=== PATIENT | female | born 1945 | race Caucasian/White ===

== ENCOUNTER 2022-12-05 04:36 | Outpatient (RCR) | payer MEDICARE, SELFPAY | END 2023-01-03 23:59 | disposition home or self-care (01) | LOC: MM 04:36 | PROVIDERS: PCP Family Medicine; Visit Provider Internal Medicine | DX: Z51.81 Encounter for therapeutic drug level monitoring (principal); Z79.01 Long term (current) use of anticoagulants; I48.91 Unspecified atrial fibrillation | CPT/HCPCS: 85610; G0463 ==

== ENCOUNTER 2023-01-09 08:58 | Outpatient (RCR) | payer MEDICARE, SELFPAY | END 2023-02-03 16:58 | disposition home or self-care (01) | LOC: MM 08:58 | PROVIDERS: PCP Internal Medicine; Visit Provider Internal Medicine | DX: Z51.81 Encounter for therapeutic drug level monitoring (principal); Z79.01 Long term (current) use of anticoagulants; I48.91 Unspecified atrial fibrillation | CPT/HCPCS: 85610; G0463 ==

== ENCOUNTER 2023-02-04 09:19 | Outpatient (RCR) | payer MEDICARE, SELFPAY | END 2023-03-06 17:33 | disposition home or self-care (01) | LOC: MM 09:19 | PROVIDERS: Visit Provider Internal Medicine | DX: Z51.81 Encounter for therapeutic drug level monitoring (principal); Z79.01 Long term (current) use of anticoagulants; I48.91 Unspecified atrial fibrillation ==

== ENCOUNTER 2023-03-07 08:56 | Outpatient (RCR) | payer MEDICARE, SELFPAY | END 2023-04-04 16:51 | disposition home or self-care (01) | LOC: MM 08:56 | PROVIDERS: Visit Provider Internal Medicine | DX: Z51.81 Encounter for therapeutic drug level monitoring (principal); Z79.01 Long term (current) use of anticoagulants; I48.91 Unspecified atrial fibrillation | CPT/HCPCS: 85610; G0463 ==

== ENCOUNTER 2023-04-07 02:44 | Outpatient (RCR) | payer MEDICARE, SELFPAY | END 2023-05-06 17:41 | disposition home or self-care (01) | LOC: MM 02:44 | PROVIDERS: Visit Provider Internal Medicine | DX: Z51.81 Encounter for therapeutic drug level monitoring (principal); Z79.01 Long term (current) use of anticoagulants; I48.91 Unspecified atrial fibrillation | CPT/HCPCS: 85610; G0463 ==

== ENCOUNTER 2023-05-07 00:31 | Outpatient (RCR) | payer MEDICARE, SELFPAY | END 2023-06-05 16:27 | disposition home or self-care (01) | LOC: MM 00:31 | PROVIDERS: Visit Provider Internal Medicine | DX: Z51.81 Encounter for therapeutic drug level monitoring (principal); Z79.01 Long term (current) use of anticoagulants; I48.91 Unspecified atrial fibrillation | CPT/HCPCS: 85610; G0463 ==

== ENCOUNTER 2023-06-06 09:46 | Outpatient (RCR) | payer MEDICARE, SELFPAY | END 2023-07-04 15:30 | disposition home or self-care (01) | LOC: MM 09:46 | PROVIDERS: Visit Provider Internal Medicine | DX: Z51.81 Encounter for therapeutic drug level monitoring (principal); Z79.01 Long term (current) use of anticoagulants; I48.91 Unspecified atrial fibrillation ==

== ENCOUNTER 2023-06-27 08:52 | Outpatient (OUT) | payer MEDICARE, SELFPAY ==
--- NOTE | 2023-06-27 | RT_ITS ---
The [facility] Test Date: 2023-06-27 Pat Name: ELIZABETH ABBASI Department: Room: - Gender: Female Tankroom Tender: Tere Reyes RRT : 1945 Requested By: CLAIRE MARIN M.D. Order Number: [id number] Reading MD: Chema Pendleton Interpretive Statements Pulmonary function testing was completed according to ATS criteria. Findings were considered accurate and reproducible. No bronchodilator was administered due to normal spirometric values. Spirometry: -FEV1/FVC: Normal @ 86% -FEV1: Normal @ 118% -FVC: Normal @ 101% Lung volumes by plethysmography: -RV: Reduced @ 43% -TLC: Mildly reduced @ 77% Diffusion capacity: -DLCO: Low normal @ 81% when corrected for Hb 11.5g/dL Flow-volume loop: -Normal shape Comparison from 03/24/2020: -Spirometry essentially unchanged with exception of FVC which was 105%. TLC was 86%. DLCO was 82%. Impressions: -Normal spirometry with mildly decreased TLC and normal diffusion impairment. There is a mild decrease in FVC and TLC when compared to prior testing. Clinical correlation required. Electronically Signed On 07-08-2023 14:05:37 EST by Chema Pendleton
[2023-06-27 09:11] LABS: Hemoglobin 11.5 g/dL (12.0-16.0)
[2023-06-27 09:42] LABS: Alanine Aminotransferase 17 U/L (14-59); Albumin Globulin Ratio 0.9; Albumin Level 3.6 g/dL (3.4-5.0); Alkaline Phosphatase 62 U/L (46-116); Aspartate Amino Transferase 16 U/L (15-37); Bilirubin Direct 0.1 mg/dL (0.0-0.2); Bilirubin Total 0.4 mg/dL (0.2-1.0); Thyroid Stimulating Hormone 4.317 uIU/mL (0.358-3.740); Total Protein 7.6 g/dL (6.4-8.2)
--- NOTE | 2023-06-27 09:54 | XR_ITS ---
The [address] [address] Patient Name: ELIZABETH ABBASI MRN: [id number] date: 1945 Sex: F Assigned Patient Location: CARD Current Patient Location: CARD Accession/Order Number: [id number] Exam Date: 06/27/2023 10:20 Report Date: 06/27/2023 10:38 At the request of: CLAIRE MARIN Procedure: XR chest 2V EXAM: XR chest 2V HISTORY: status post device closure of ASD Z87.74 COMPARISON: None. TECHNIQUE: PA and lateral views of the chest. FINDINGS: The cardiomediastinal silhouette is enlarged. No focal consolidation is identified. There is no pneumothorax. No pleural effusion is noted. The osseous structures are intact. XR/XR chest 2V IMPRESSION: Cardiomegaly. Electronically authenticated by: TAVARES SEAY Date: 06/27/2023 10:38
[2023-06-27 10:00] LABS: Free T4 1.33 ng/dL (0.76-1.46)
== END 2023-06-27 08:53 | disposition home or self-care (01) ==
LOC: CARD 08:52
PROVIDERS: Visit Provider Internal Medicine Interventional Cardiology
DX: I48.0 Paroxysmal atrial fibrillation (principal); Z87.74 Personal history of (corrected) congenital malformations of heart and circulatory system
CPT/HCPCS: 36415; 71046; 80076; 84439; 84443; 85018; 94010; 94726; 94729

== ENCOUNTER 2023-07-07 01:31 | Outpatient (RCR) | payer MEDICARE, SELFPAY | END 2023-08-06 17:08 | disposition home or self-care (01) | LOC: MM 01:31 | PROVIDERS: Visit Provider Internal Medicine | DX: Z51.81 Encounter for therapeutic drug level monitoring (principal); Z79.01 Long term (current) use of anticoagulants; I48.91 Unspecified atrial fibrillation | CPT/HCPCS: 85610; G0463 ==

== ENCOUNTER 2023-07-30 07:58 | Outpatient (OUT) | payer MEDICARE, SELFPAY ==
--- OUTSIDE RECORDS SUMMARY | 2023-07-30 08:02 | XMS_ITS | CCD ---
Author Name Unknown Address [address] [facility] [address] [place] [address] Organization [facility] Care Team Providers Care Quality Control Coordinator Name Role Phone GEOVANNA, DR CHRISTIAN Hawley Primary Care Unavailable FAWWAD, KELLER H Attending Unavailable FAWWAD, KELLER H Admitting Unavailable FAWWAD, KELLER H Attending Unavailable FAWWAD, KELLER H Admitting Unavailable AUSTIN, DR CHRISTIAN Hawley Primary Care Unavailable FAWWAD, KELLER H Attending Unavailable AUSTIN, DR CHRISTIAN Hawley Primary Care Unavailable FAWWAD, KELLER H Admitting Unavailable FAWWAD, KELLER H Attending Unavailable AUSTIN, DR CHRISTIAN Hawley Primary Care Unavailable FAWWAD, KELLER H Admitting Unavailable FAWWAD, KELLER H Attending Unavailable AUSTIN, DR CHRISTIAN Hawley Primary Care Unavailable FAWWAD, KELLER H Admitting Unavailable FAWWAD, KELLER H Attending Unavailable FAWWAD, KELLER H Admitting Unavailable AUSTIN, DR CHRISTIAN Hawley Primary Care Unavailable AUSTIN, DR CHRISTIAN Hawley Admitting Unavailable AUSTIN, DR CHRISTIAN Hawley Primary Care Unavailable AUSTIN, DR CHRISTIAN Hawley Consulting Unavailable AUSTIN, DR CHRISTIAN Hawley Attending Unavailable AUSTIN, DR CHRISTIAN Hawley Primary Care Unavailable AUSTIN, DR CHRISTIAN Hawley Attending Unavailable AUSTIN, DR CHRISTIAN Hawley Admitting Unavailable WEST, DR JANET Temple Consulting Unavailable AUSTIN, DR CHRISTIAN Hawley Consulting Unavailable AUSTIN, DR CHRISTIAN Hawley Primary Care Unavailable WEST, DR JANET Temple Consulting Unavailable AUSTIN, DR CHRISTIAN Hawley Attending Unavailable AUSTIN, DR CHRISTIAN Hawley Admitting Unavailable AUSTIN, DR CHRISTIAN Hawley Consulting Unavailable ASHLIE, ROSA MARIA Attending Unavailable AUSTIN, DR CHRISTIAN Hawley Primary Care Unavailable ASHLIE, ROSA MARIA Admitting Unavailable ASHLIE, ROSA MARIA Consulting Unavailable GEOVANNA, DR CHRISTIAN Hawley Primary Care Unavailable CLAIRE MARIN Attending Unavailable NANI, DR JEFF Patel Consulting Unavailable CLAIRE MARIN Admitting Unavailable CLAIRE MARIN Consulting Unavailable DR CHRISTIAN AUSTIN Primary Care Unavailable FAWWAD, KELLER H Attending Unavailable FAWRORY, KELLER H Admitting Unavailable DR CHRISTIAN AUSTIN Primary Care Unavailable FAWWAD, KELLER H Attending Unavailable FAWWAD, KELLER H Admitting Unavailable DR CHRISTIAN AUSTIN Primary Care Unavailable FAWWAD, KELLER H Attending Unavailable FAWWAEnoc, KELLER H Admitting Unavailable DR CHRISTIAN AUSTIN Primary Care Unavailable FAWWAD, KELLER H Attending Unavailable FAWWAD, KELLER H Admitting Unavailable DR CHRISTIAN AUSTIN Primary Care Unavailable FAWWAD, KELLER H Attending Unavailable FAWWAD, KELLER H Admitting Unavailable Nay Akers Unavailable CLAIRE MARIN Attending Unavailable ROSA MARIA DAILEY Attending Unavailable Allergies Allergy Classification Reported Allergen(s) Allergy Type Date of Onset Reaction(s) Facility (1 source) patient allergy list reviewed by nurse or physicia Propensity to adverse reactions Comment:Done [employer] Other (1 source) Allergies Reconciled Propensity to adverse reactions Unknown [employer] Other Medications Current Medications Medication Drug Class(es) Dates Sig (Normalized) Sig (Original) alendronic acid 70 mg oral tablet (1 source) Bisphosphonate Start: 03-06-2022 take 1 tablet by mouth every week Fosamax 70MG Fosamax 70MG, 1 (one) Tablet weekly # 12, 03/06/2022, Ref. x3. Active Oral weekly for 90 *Pick strength-form from [employer] for eRX* Feb, Active amiodarone hydrochloride 100 mg oral tablet (1 source) Antiarrhythmic Start: 03-01-2022 take 100 mg by mouth once daily Amiodarone HCl 100MG Amiodarone HCl( 100MG Oral daily ) Active -Hx Entry Oral daily for 0 *Pick strength-form from [employer] for eRX* Feb, Active aspirin 81 mg delayed release oral tablet (1 source) Platelet Aggregation Inhibitor, Nonsteroidal Anti-inflammatory Drug Start: 03-01-2022 Aspirin Adult Low Dose 81 MG Aspirin( 81MG Oral ) Active -Hx Entry Oral for 0 Feb, Active ciprofloxacin 3 mg/ml ophthalmic solution (1 source) Quinolone Antimicrobial Start: 07-10-2023 take 1-2 drop(s) into the eye(s) every four hours Ciprofloxacin HCl 0.3 % 1-2 drops Ophthalmic every 4 hours for 7 Jul, Active metoprolol tartrate 100 mg oral tablet (1 source) beta-Adrenergic Meng Start: 08-21-2021 take 1 tablet by mouth once daily Metoprolol Succinate ER 100MG Metoprolol Succinate ER 100MG, 1 (one) Tablet Tablet daily # 90, 08/21/2021, Ref. x1. Active Oral daily for 0 *Pick strength-form from [employer] for eRX* Aug, Active simvastatin 40 mg oral tablet (1 source) HMG-CoA Reductase Inhibitor Start: 03-01-2022 Simvastatin 40MG Simvastatin( 40MG Oral ) Active -Hx Entry Oral for 0 *Pick strength-form from [employer] for eRX* Feb, Active warfarin sodium 5 mg oral tablet (1 source) Vitamin K Antagonist Start: 03-01-2022 Warfarin Sodium 5MG Warfarin Sodium( 5MG Oral ) Active -Hx Entry Oral for 0 *Pick strength-form from [employer] for eRX* Feb, Active Problems Active Problems Problem Classification Problem Date Documented Date Episodic/Chronic Cardiac and circulatory congenital anomalies (1 source) Atrial septal defect; Translations: [Atrial septal defect] Onset: 04-17-2018 Chronic Cardiac dysrhythmias (8 sources) Paroxysmal atrial fibrillation; Translations: [Paroxysmal atrial fibrillation] Onset: 04-17-2018 Chronic Cardiac dysrhythmias (3 sources) Bradycardia, unspecified; Translations: [Bradycardia] Onset: 04-26-2014 Episodic Coronary atherosclerosis and other heart disease (2 sources) Atherosclerotic heart disease of [place] coronary artery without angina pectoris; Translations: [Atherosclerotic heart disease of [place] coronary artery without angina pectoris] Onset: 03-14-2022 Chronic Disorders of lipid metabolism (2 sources) Hyperlipidemia, unspecified; Translations: [Hyperlipidemia, unspecified] Onset: 07-23-2023 Chronic Essential hypertension (4 sources) Essential (primary) hypertension; Translations: [Essential hypertension] Onset: 04-26-2014 Chronic Heart valve disorders (2 sources) Nonrheumatic mitral (valve) insufficiency; Translations: [Mitral valve disorder] Onset: 04-17-2018 Chronic Inflammation; infection of eye (except that caused by tuberculosis or sexually transmitteddisease) (1 source) Unspecified acute conjunctivitis, bilateral Episodic Occlusion or stenosis of precerebral arteries (4 sources) Carotid artery occlusion without infarction; Translations: [Occlusion and stenosis of carotid artery without mention of cerebral infarction] Onset: 05-19-2014 Chronic Osteoporosis (5 sources) Age-related osteoporosis without current pathological fracture; Translations: [Primary osteoporosis] Onset: 05-24-2022 Chronic Other aftercare (5 sources) Encounter for therapeutic drug level monitoring; Translations: [ENC THERAPEUTC DRUG LEVL MONITORING] Onset: 11-02-2022 Episodic Other aftercare (1 source) long term care administrator (current) use of anticoagulants; Translations: [ENVIRONMENTAL PROJECT MANAGER CURRNT USE ANTICOAGULANTS] Onset: 12-04-2022 Episodic Other connective tissue disease (1 source) Pain in left foot; Translations: [Pain in left foot] Episodic Other injuries and conditions due to external causes (1 source) History of fall; Translations: [History of falling] Episodic Residual codes; unclassified (1 source) Immunization refused ; Translations: [Immunization not carried out because of patient refusal] Episodic Residual codes; unclassified (1 source) Procedure not done; Translations: [Procedure and treatment not carried out because of patient's decision for unspecified reasons] Episodic Residual codes; unclassified (1 source) Postmenopausal state; Translations: [Asymptomatic menopausal state] Episodic Sprains and strains (1 source) Sprain of ankle; Translations: [Sprain of unspecified ligament of left ankle, initial encounter] Episodic Unclassified (1 source) Atrial septal defect, unspecified; Translations: [Atrial septal defect, unspecified] Onset: 03-14-2022 Viral infection (1 source) Disease caused by 2019-nCoV; Translations: [COVID-19] Past or Other Problems Problem Classification Problem Date Documented Da te Episodic/Chronic Acute bronchitis (1 source) Acute bronchitis; Translations: [Acute bronchitis, unspecified] Onset: 07-30-2017 Episodic Cardiac and circulatory congenital anomalies (2 sources) Personal history of (corrected) congenital malformations of heart and circulatory system; Translations: [Personal history of (corrected) congenital malformations of heart and circulatory system] Onset: 01-21-2023 Episodic Heart valve disorders (1 source) O/E - cardiac murmur; Translations: [Cardiac murmur, unspecified] Onset: 03-03-2017 Episodic Malaise and fatigue (1 source) Fatigue; Translations: [Other fatigue] Onset: 04-03-2018 Episodic Other aftercare (4 sources) Other group home (current) drug therapy; Translations: [OT ENVIRONMENTAL PROJECT MANAGER CURRENT DRUG THERAPY] Onset: 07-29-2022 Episodic Other bone disease and musculoskeletal deformities (1 source) Other specified disorders of bone density and structure, left thigh; Translations: [OT D/O BONE DEN STRUCT LT THIGH] Onset: 05-27-2022 Episodic Other lower respiratory disease (1 source) Dyspnea; Translations: [Other forms of dyspnea] Onset: 04-03-2018 Episodic Other screening for suspected conditions (not mental disorders or infectious disease) (5 sources) Encounter for screening mammogram for malignant neoplasm of breast; Translations: [Electrocardiogram abnormal] Onset: 04-26-2014 Episodic Other upper respiratory infections (1 source) Acute sinusitis; Translations: [Acute sinusitis, unspecified] Onset: 11-22-2014 Episodic Residual codes; unclassified (1 source) Edema; Translations: [Edema] Onset: 04-03-2018 Episodic Residual codes; unclassified (1 source) Family history of diabetes mellitus; Translations: [Family history of diabetes mellitus] Onset: 04-26-2014 Episodic Residual codes; unclassified (1 source) Family history of stroke; Translations: [Family history of stroke] Onset: 04-26-2014 Episodic Unclassified (1 source) Atrial septal defect, unspecified; Translations: [Atrial septal defect, unspecified] Onset: 07-23-2023 Results Test Name Value Interpretation Reference Range Facility Office Visiton 07-23-2023 Follow-up visit [id number] Estephanie Eugene ra 1945 F Date Provider Department Center 07/23/2023 Meredith-ROSA MARIA DAILEY Family History Problem Relation Age of Onset Hypertension Mother Stroke Mother Atrial fibrillation Sister Lung cancer Brother Family Status - Relation Status Age at Mother Sister Brother Level of Service:62697 NE OFFICE/OUTPATIENT ESTABLISHED MOD MDM 30 MIN Reason for Visit and Comments: Follow-up [478350] [facility] Office Visiton 01-21-2023 Follow-up visit [id number] Estephanie Eugene ra 1945 F Date Provider Department Center 01/21/2023 CLAIRE JC GOSIA Gwendolyn Monae Family History Problem Relation Age of Onset Hypertension Mother Stroke Mother Atrial fibrillation Sister Lung cancer Brother Family Status - Relation Status Age at Mother Sister Brother Level of Service:08747 NE OFFICE/OUTPATIENT ESTABLISHED MOD MDM 30-39 MIN Reason for Visit and Comments: Follow-up [640022] - 6 month w echo Normal [facility] ECHOCARDIO M/2D COMPLETEon 0 08-14-2022 ECHOCARDIO M/2D COMPLETE Patient: ELIZABETH EUGENE Exam Date: 08/14/2022 : 1945 Gender:F Ordering : ROSA MARIA DAILEY Admission #: [id number] Family : DR CHRISTIAN AUSTIN M.D. Order #: [id number] CLICK HERE TO VIEW EXAM ECHOCARDIOGRAM REPORT PROCEDURE: CARDIO PULMONARY ECHOCARDIO M/2D COMP INDICATIONS: H/O ASD Closure COMPARISON: None. DESCRIPTION: COMPLETE ECHOCARDIOGRAM Real-time transthoracic echocardiography with 2D, M-mode, spectral and color flow Doppler performed. QUALITY: Technical quality was adequate. 60 141# 128/60 HR 52 LEFT VENTRICLE: Normal chamber size. Proximal septal hypertrophy (sigmoid septum). Global left ventricular systolic function is normal. No regional wall motion abnormalities. LV EF: Visual estimation of left ventricular ejection fraction is 60%. DIASTOLIC: Grade II diastolic dysfunction. ATRIAL SEPTUM: Interatrial closure device is seen with small residual left to right shunting. LEFT ATRIUM: Severe dilatation. RIGHT ATRIUM: Normal chamber size. RIGHT VENTRICLE: Normal chamber size. Normal right ventricular systolic function. TRICUSPID VALVE: Normal mobility and thickness. No stenosis with mild regurgitation. No evidence of pulmonary hypertension. RVSP 31 mmHg MITRAL VALVE: Mildly thickened with normal mobility. No evidence of mitral valve stenosis. Mild mitral regurgitation. AORTIC VALVE: Normal trileaflet appearance. No evidence of aortic valve stenosis. Trivial aortic regurgitation. AORTIC ROOT: Normal diameter and appearance. PULMONIC VALVE: Normal thickness and mobility. No stenosis. Trivial regurgitation. PERICARDIUM: Trivial posterior pericardial effusion. IVC: Collapses with inspirations. IVC is normal in size. PLEURA: CONCLUSION: 1. Normal left ventricular systolic function. LVEF is 60%. 2. Normal right ventricular size and systolic function. 3. Severe left atrial dilatation. 4. Normal right atrial size. 5. Interatrial septal closure device is seen well-seated across the septum with a small residual [id number] shunt by color Doppler. 6. Mild mitral regurgitation. 7. Normal right-sided pressures. 8. Trivial posterior pericardial effusion. Adult Echocardiography Procedure Report Left Ventricle LVEDD (3.7 - 5.6 cm): 5.02 cm LVESD (2.2 - 4.0 cm): 2.85 cm LVPW thickness (0.5 - 1.0 cm): 0.86 cm LVOT Max Gradient: 3.84 mm[Hg] Peak Velocity (LVOT): 0.98 m/s LVOT Diameter 1.68 cm Left Ventricular Ejection Fraction: 60 % Left Atrium LA Volume Index (2D A2C): 97.65 ml, 92.56 ml, 102.86 ml Left Atrium Systolic Dimension: 5.27 cm Mitral Valve MV E to A Ratio: 1.28 Mitral Valve A-Wave Peak Velocity: 0.84 m/s Mitral Valve E-Wave Peak Velocity: 1.07 m/s Right Ventricle RV Internal Diastolic Dimension: 3.40 cm Aorta AO Root Diam: 2.90 cm Ascending Ao Diam: 2.82 cm Aortic Valve AoV Area (Peak Antwan): 1.48 cm2, 1.48 cm2 Peak Velocity(Antegrade Flow): 1.47 m/s Peak Gradient(Antegrade Flow): 8.69 mm[Hg] Tricuspid Valve Peak Velocity (Regurgitant Flow): 2.34 m/s, 2.41 m/s, 2.59 m/s Peak Velocity: 0.46 m/s Pulmonic Valve Peak Velocity: 0.72 m/s Peak Gradient: 2.10 mm[Hg] Right Atrium Dictated by: Claire Marin M.D. on 08/15/2022 at 18:10 Approved by: Claire Marin M.D. on 08/15/2022 at 18:36 Normal [facility] FREE T4on 07-29-2022 Free T4 [Mass/Vol] 1.43 ng/dL Normal 0.76-1.46 [facility] Comment on above: Performed By: #### F T4 #### [facility] [address] [address] [address] Adrian Becker LIVER PROFILEon 07-29-2022 Albumin [Mass/Vol] 3.8 g/dL Normal 3.4-5.0 [facility] Comment on above: Performed By: #### T SH, LIVER #### [facility] [address] [place] [address] Dr. Adrian Becker Albumin/Globulin [Mass ratio] 1.0 {ratio} Normal [facility] Comment on above: Performed By: #### T SH, LIVER #### [facility] [address] [place] [address] Dr. Adrian Becker ALP [Catalytic activity/Vol] 66 U/L Normal 46-116 [facility] Comment on above: Performed By: #### T SH, LIVER #### [facility] [address] [place] [address] Dr. Adrian Becker ALT [Catalytic activity/Vol] 20 U/L Normal 14-59 [facility] Comment on above: Performed By: #### T SH, LIVER #### [facility] [address] [place] [address] Dr. Adrian Becker AST [Catalytic activity/Vol] 25 U/L Normal 15-37 [facility] Comment on above: Performed By: #### T SH, LIVER #### [facility] [address] [place] [address] Dr. Adrian Becker BILI, CONJUGATED 0.1 mg/dL Normal 0.0-0.2 [facility] Comment on above: Performed By: #### T SH, LIVER #### [facility] [address] [place] [address] Dr. Adrian Becker Bilirubin [Mass/Vol] 0.3 mg/dL Normal 0.2-1.0 [facility] Comment on above: Performed By: #### T SH, LIVER #### [facility] [address] [place] [address] Dr. Adrian Becker Globulin (S) [Mass/Vol] 3.9 g/dL Normal [facility] Comment on above: Performed By: #### T SH, LIVER #### [facility] [address] [place], [place] [address] Dr. Adrian Becker Protein [Mass/Vol] 7.7 g/dL Normal 6.4-8.2 [facility] Comment on above: Performed By: #### T SH, LIVER #### [facility] [address] [place], [place] [address] Dr. Adrian Becker TSHon 07-29-2022 TSH 2.876 uIU/mL Normal 0.358-3.740 [facility] Comment on above: Performed By: #### T SH, LIVER #### [facility] [address] [place], [place] [address] Dr. Adrian Becker XR CHEST 2 Von 07-29-2022 XR CHEST 2 V EXAMINATION: XR CHES T 2 V HISTORY: Long-term current use of drug therapy COMPARISON: XR chest 01/05/2021 FINDINGS: LUNGS: No significant pulmonary parenchymal abnormalities. Stable calcified granuloma within left midlung. VASCULATURE: No increased pulmonary vasculature. PLEURA: No pneumothorax, effusion, or pleural thickening. CARDIAC: No cardiomegaly or cardiac silhouette abnormality. MEDIASTINUM: No visible mass or adenopathy. BONES: No fracture or visible bone lesion. OTHER: Negative. IMPRESSION: 1. No acute cardiopulmonary process. 2. No significant chronic interstitial changes/fibrosis. Electronically authenticated by: JEFF CARDOZA Date: 2022-07-29 13:46 Normal [facility] XR DEXA BONE DENSITYon 05-24 XR DEXA BONE DENSITY EXAMINATION: XR DEXA BONE DENSITY, 05/24/2022 8:22 AM EST HISTORY: Senile osteoporosis COMPARISON: 2005 TECHNIQUE: Dual-energy X-ray absorptiometry (DEXA) bone density study performed for the axial skeleton. FINDINGS: Bone mineral density AP spine L1-L4 measures 1.260 g/sq cm. T score 0.7. WHO classification: Normal. Lowest bone mineral density left femoral trochanter measures 0.581 g/sq cm. T score -2.3. WHO classification: Osteopenia IMPRESSION: Osteopenia. Moderate fracture risk Electronically authenticated by: JANET BORDEN Date: 2022-05-24 15:40 Normal [facility] MG MAMM SCREEN 3D ENRRIQUE CADon 05-21-2022 MG MAMM SCREEN 3D ENRRIQUE CAD Patient: ELIZABETH EUGENE Exam Date: 05/21/2022 : 1945 Gender:F Ordering : DR CHRISTIAN AUSTIN M.D. Admission #: [id number] Family : Order #: [id number] CLICK HERE TO VIEW EXAM RADIOLOGY REPORT PROCEDURE: MAMMOGRAM SCREENING 3D BILATERAL CAD COMPARISON: MG MAMM SCREEN ENRRIQUE W CAD, 05/11/2020. INDICATIONS: Screening mammography Calculator Name NCI Breast Cancer Risk Assessment Tool 5 Year Breast Cancer Risk 1.50% Lifetime Breast Cancer Risk 3.30% Personal Breast Cancer No Personal Ovarian Cancer No Treatments None Family Cancers None LOCATION: [facility] BREAST COMPOSITION: Heterogeneously dense,which may obscure small masses. FINDINGS: DIAGNOSTIC CATEGORY 2--BENIGN FINDING. NO CHANGE FROM COMPARISON. Scattered benign-appearing nodules are present. Scattered benign-appearing calcifications are present. Scattered benign-appearing lymph nodes are present. RIGHT BREAST: No significant suspicious finding. LEFT BREAST: No significant suspicious finding. RECOMMENDATIONS: ROUTINE MAMMOGRAM AND CLINICAL EVALUATION IN 12 MONTHS. PLEASE NOTE: A NORMAL MAMMOGRAM DOES NOT EXCLUDE THE POSSIBILITY OF BREAST CANCER. A CLINICALLY SUSPICIOUS PALPABLE LUMP SHOULD BE BIOPSIED. Dictated by: Janet Borden MD on 05/21/2022 at 13:46 Approved by: Janet Borden MD on 05/21/2022 at 13:[address] [facility] CBC AUTO DIFFon 03-12-2022 BASO # 0.1 103/ul Normal 0.0-0.1 [facility] Comment on above: Performed By: #### C BC #### [facility] [address] [place] [address] Dr. Adrian Becker Basophils/100 WBC (Bld) 1.1 % Normal 0.2-2.[address] [facility] Comment on above: Performed By: #### C BC #### [facility] [address] [address] [address] Adrian Becker EO # 0.1 103/ul Normal 0.0-0.7 [facility] Comment on above: Performed By: #### C BC #### [facility] [address] [address] [address] Adrian Becker Eosinophils/100 WBC (Bld) 2.1 % Normal 0.9-7.0 [facility] Comment on above: Performed By: #### C BC #### [facility] [address] [place] [address] Dr. Adrian Becker Erythrocyte distribution width (RBC) [Ratio] 14.1 % Normal 11.0-15.0 [facility] Comment on above: Performed By: #### C BC #### [facility] [address] [place] [address] Dr. Adrian Becker Hematocrit (Bld) [Volume fraction] 33.5 % Critically low 36.0-48.0 [facility] Comment on above: Performed By: #### C BC #### [facility] [address] [place] [address] Dr. Adrian Becker Hemoglobin (Bld) [Mass/Vol] 11.1 g/dL Critically low 12.0-16.0 [facility] Comment on above: Performed By: #### C BC #### [facility] [address] [place] [address] Dr. Adrian Becker IG # 0.02 10e3/ul Normal 0.00-0.03 [facility] Comment on above: Performed By: #### C BC #### [facility] [address] [place] [address] Dr. Adrian Becker IG % 0.3 % Normal 0.0-0.5 [facility] Comment on above: Performed By: #### C BC #### [facility] [address] [place] [address] Dr. Adrian Becker LYMPH # 1.8 103/ul Normal 1.2-3.8 [facility] Comment on above: Performed By: #### C BC #### [facility] [address] [place] [address] Dr. Adrian Becker Lymphocytes/100 WBC (Bld) 29.0 % Normal 20.5-60.0 [facility] Comment on above: Performed By: #### C BC #### [facility] [address] [place] [address] Dr. Adrian Becker MANUAL DIFF REQ NO Normal [facility] Comment on above: Performed By: #### C BC #### [facility] [address] [address] [address] Adrian Becker MCH (RBC) [Entitic mass] 29.8 pg Normal 26.7-34.0 [facility] Comment on above: Performed By: #### C BC #### [facility] [address] [address] [address] Adrian Becker MCHC (RBC) [Mass/Vol] 33.1 g/dL Normal 29.9-35.2 [facility] Comment on above: Performed By: #### C BC #### [facility] [address] [address] [address] Adrian Becker MCV (RBC) [Entitic vol] 89.8 fL Normal 81.0-99.0 [facility] Comment on above: Performed By: #### C BC #### [facility] [address] [place] [address] Dr. Adrian Becker MONO # 0.4 103/ul Normal 0.3-0.8 [facility] Comment on above: Performed By: #### C BC #### [facility] [address] [place] [address] Dr. Adrian Becker Monocytes/100 WBC (Bld) 6.1 % Normal 1.7-12.0 [facility] Comment on above: Performed By: #### C BC #### [facility] [address] [place] [address] Dr. Adrian Becker NEUT # 3.8 103/ul Normal 1.4-6.[address] [facility] Comment on above: Performed By: #### C BC #### [facility] [address] [place] [address] Dr. Adrian Becker Neutrophils/100 WBC (Bld) 61.4 % Normal 43.0-75.[address] [facility] Comment on above: Performed By: #### C BC #### [facility] [address] [place] [address] Dr. Adrian Becker Platelet mean volume (Bld) [Entitic vol] 9.5 fL Normal 9.5-13.5 [facility] Comment on above: Performed By: #### C BC #### [facility] [address] [address] [address] Adrian Becker PLT 323 103/ul Normal 150-450 [facility] Comment on above: Performed By: #### C BC #### [facility] [address] [address] [address] Adrian Becker RBC 3.73 106/ul Critically low 4.20-5.40 [facility] Comment on above: Performed By: #### C BC #### [facility] [address] [address] [address] Adrian Becker WBC 6.2 103/ul Normal 4.0-11.0 [facility] Comment on above: Performed By: #### C BC #### [facility] [address] [place] [address] Dr. Adrian Becker PROF 14(COMP METB)on 022 Albumin [Mass/Vol] 3.6 g/dL Normal 3.4-5.0 [facility] Comment on above: Performed By: #### T SH, CMP #### [facility] [address] [place] [address] Dr. Adrian Becker Albumin/Globulin [Mass ratio] 0.9 {ratio} Normal [facility] Comment on above: Performed By: #### T SH, CMP #### [facility] [address] [address] [address] Adrian Becker ALP [Catalytic activity/Vol] 52 U/L Normal 46-[address] [facility] Comment on above: Performed By: #### T SH, CMP #### [facility] [address] [address] [address] Adrian Becker ALT [Catalytic activity/Vol] 20 U/L Normal 14-59 [facility] Comment on above: Performed By: #### T SH, CMP #### [facility] [address] [place] [address] Dr. Adrian Becker Anion gap [Moles/Vol] 11.2 mmol/L Normal [facility] Comment on above: Performed By: #### T SH, CMP #### [facility] [address] [address] [address] Adrian Becker AST [Catalytic activity/Vol] 22 U/L Normal 15-37 [facility] Comment on above: Performed By: #### T SH, CMP #### [facility] [address] [address] [address] Adrian Becker Bilirubin [Mass/Vol] 0.4 mg/dL Normal 0.2-1.0 [facility] Comment on above: Performed By: #### T SH, CMP #### [facility] [address] [address] [address] Adrian Becker Calcium [Mass/Vol] 9.1 mg/dL Normal 8.5-10.1 [facility] Comment on above: Performed By: #### T SH, CMP #### [facility] [address] [address] [address] Adrian Becker Chloride [Moles/Vol] 102 mmol/L Normal 98-107 [facility] Comment on above: Performed By: #### T SH, CMP #### [facility] [address] [address] [address] Adrian Becker CO2 [Moles/Vol] 27.5 mmol/L Normal 21.0-32.0 [facility] Comment on above: Performed By: #### T SH, CMP #### [facility] [address] [address] [address] Adrian Becker Creatinine [Mass/Vol] 1.38 mg/dL Critically high 0.55-1.02 [facility] Comment on above: Performed By: #### T SH, CMP #### [facility] [address] [address] [address] Adrian Becker EGFR-AF AUSTRIAN 45 mL/min/1.73m2 Critically low >=60 [facility] Comment on above: Performed By: #### T SH, CMP #### [facility] [address] [address] [address] Adrian Becker EGFR-NON AF AUSTRIAN 37 mL/min/1.73m2 Critically low >=60 [facility] Comment on above: Performed By: #### T SH, CMP #### [facility] [address] [address] [address] Adrian Becker Globulin (S) [Mass/Vol] 3.8 g/dL Normal [facility] Comment on above: Performed By: #### T SH, CMP #### [facility] [address] [address] [address] Adrian Becker Glucose [Mass/Vol] 112 mg/dL Critically high 74-106 [facility] Comment on above: Performed By: #### T SH, CMP #### [facility] [address] [address] [address] Adrian Becker Potassium [Moles/Vol] 3.7 mmol/L Normal 3.5-5.1 [facility] Comment on above: Performed By: #### T SH, CMP #### [facility] [address] [place] [address] Dr. Adrian Becker Protein [Mass/Vol] 7.4 g/dL Normal 6.4-8.2 [facility] Comment on above: Performed By: #### T SH, CMP #### [facility] [address] [place] [address] Dr. Adrian Becker Sodium [Moles/Vol] 137 mmol/L Normal 136-145 [facility] Comment on above: Performed By: #### T SH, CMP #### [facility] [address] [place] [address] Dr. Adrian Becker Urea nitrogen [Mass/Vol] 20.0 mg/dL Critically high 7.0-18.0 [facility] Comment on above: Performed By: #### T SH, CMP #### [facility] [address] [place] [address] Dr. Adrian Becker Urea nitrogen/Creatinin e [Mass ratio] 14.5 mg/mg Normal [facility] Comment on above: Performed By: #### T SH, CMP #### [facility] [address] [place] [address] Dr. Adrian Becker TSHon 03-12-2022 TSH 2.459 uIU/mL Normal 0.358-3.740 [facility] Comment on above: Performed By: #### T SH, CMP #### [facility] [address] [place], [place] [address] Dr. Adrian Becker CREATININE BLOODon 9 Creatinine [Mass/Vol] 1.18 mg/dL Normal 0.60-1.20 [facility] Comment on above: Performed By: #### 2 5656 #### [facility] [address] [place] [address], [facility] Creatinine [Mass/Vol] 45 ml/min/1.73sq m Abnormal >60 [facility] Comment on above: Result Comment: Calc ulation may not be valid for patients over 70 years Performed By: #### 2 5656 #### [facility] [address] [place] [address], [facility] Creatinine [Mass/Vol] 55 ml/min/1.73sq m Abnormal >60 [facility] Comment on above: Result Comment: Calc ulation may not be valid for patients over 70 years Performed By: #### 2 5656 #### [facility] [address] CTA HEART-STRUCTURE/ MORPHOL OGY/CONGENITAL HEART DISEASE WITH 3DPPon 12-18-2018 CTA HEART-STRUCTURE/ MORPHOLOGY/CONGENI TOMMY HEART DISEASE WITH 3DPP [facility] Department of Radiology [address] [place] [id number] ======== Patient Name: ELIZABETH EUGENE : 1945 Sex: F Age: Race: White Pt. Location: OP Patient Status: D Ordered Date: 12/08/2018 9:35:00 AM Completed Date: 12/18/2018 10:41 AM Requesting Provider: CLAIRE MARIN V Attending Provider: CLAIRE MARIN V Report Copy To: CHRISTIAN AUSTIN Signs & Symptoms: Post-ASD closure, please assess for residual defect, osmium secundum type atrial septal defect History: Order scanned into RIS Needs Labs ordered, pt is coming in early for labs no pc medicare cpt code 37836 *mla Comments: Post-ASD closure, please assess for residual defect, osmium secundum type atrial septal defect Exam: CTA HEART-STRUCTURE/ MORPHOLOGY/CONGENITAL HEART DISEASE WITH 3DPP ======== CTA HEART-STRUCTURE/ MORPHOLOGY/CONGENITAL HEART DISEASE WITH 3DPP 12/18/2018 10:43 AM EDT SIGNS AND SYMPTOMS: Post-ASD closure, please assess for residual defect, osmium secundum type atrial septal defect TECHNOLOGIST COMMENTS:ASD CLOSURE HX EVAL FOR CHRISTIAN LEAKING SOB OVERALL WEAKNESS QUESTION FOR THE RADIOLOGIST: Post-ASD closure, please assess for residual defect, osmium secundum type atrial septal defect PROTOCOL: Axial CT angiography images were obtained with IV contrast. CONTRAST: Contrast: OMNIPAQUE 350 (LOCM), 100 milliliter, Intravenous TECHNIQUE: Multidetector CT axial slices of the heart were obtained with IV contrast. Multiplanar reformats, MIP, volume rendered 3-D images were generated on a separate workstation and reviewed to further define anatomy and possible pathology. Appropriate CT dose lowering techniques were utilized. Cardiac gating was utilized. COMPARISON: May 15, 2018 FINDINGS: Gated cardiac CT examination revealed normal wall motion of the left ventricle. Normal ejection fraction is exaggerated at 52%. End-diastolic volume is 1 17 mL. End systolic volume is 56 mL and stroke volume is 61 mL. There is enlargement left atrium and evidence of ASD closure device in place. No definite evidence of leakage of contrast or shunting across the closure device. RCA is dominant with normal course and caliber and minimal vascular calcification in the midportion with minimal stenosis less than 30% seen. There is calcified and noncalcified atherosclerotic plaques in the mid LAD with moderate stenosis of less than 50%. Left circumflex and obtuse marginal branch appeared grossly unremarkable. There is cardiac enlargement particularly the left ventricle and also enlargement right atrium is noticed. Enlargement left atrium is also visualized. Lung windows revealed small calcified granuloma in the lingula. Small hiatal hernia is visualized. No focal infiltrates, effusion or pneumothorax. There is diffuse decreased attenuation of the liver suggesting diffuse fatty infiltration. Bony spurring in the thoracic spine suggesting moderate spondylosis. IMPRESSION: Interval placement of ASD closure device with no evidence of leakage across the septum and no evidence of shunting. Normal wall motion and normal ejection fraction of 52%. Mild coronary artery stenosis in the mid RCA and moderate stenosis in the mid LAD of less than 50%. Small hiatal hernia and calcified granuloma in the lingula. Mild to moderate cardiomegaly. Multichamber enlargement. Electronically signed by:Hannah Fine. Transcribed by: [id number], User Resident: Electronically Signed by: HANNAH FINE @ 12/19/2018 09:20 AM Normal [facility] Comment on above: Order Comment: Post- ASD closure, please assess for residual defect, osmium secundum type atrial septal defect Vital Signs Date Time Vital Sign Value Performing Clinician Facility 07-10-2023 10:45-0500 Body height 151.13 cm Nay Akers Other [facility] Other 07-10-2023 10:45-0500 Body mass index (BMI) [Ratio] 28.95 kg/m2 Nay Akers Other [facility] Other 07-10-2023 10:45-0500 Body temperature 98.5 [degF] Nay Akers Other [facility] Other 07-10-2023 10:45-0500 Body weight 66.13 kg Nay Akers Other [facility] Other 07-10-2023 10:45-0500 Diastolic blood pressure 84 mm[Hg] Nay Akers Other [facility] Other 07-10-2023 10:45-0500 Respiratory rate 18 /min Nay Akers Other [facility] Other 07-10-2023 10:45-0500 SaO2% (BldA) [Mass fraction] 100 % Nay Akers Other [facility] Other 07-10-2023 10:45-0500 Systolic blood pressure 124 mm[Hg] Nay Akers Other [facility] [facility] Other Encounters Encounter Date Encounter Type Care Provider Facility Start: 07-23-2023 End: 07-23-2023 ambulatory ROSA MARIA DAILEY [facility] Start: 07-10-2023 End: 07-10-2023 ambulatory Nay Akers Other [employer] Other Start: 07-10-2023 Office outpatient vi sit 15 minutes Nay Akers [facility] Start: 01-21-2023 End: 01-21-2023 ambulatory [facility] Start: 11-04-2022 End: 12-04-[address] CHRISTIAN AUSTIN Facility:[facility] Start: 10-07-2022 End: 11-01-[address] CHRISTIAN AUSTIN Facility:[facility] Start: 09-04-2022 End: 10-04-[address] CHRISTIAN AUSTIN Facility:[facility] Start: 08-14-2022 End: 08-15-2022 ambulatory ROSA MARIA DAILEY Facility:[facility] Start: 08-07-2022 End: 09-04-[address] CHRISTIAN AUSTIN Facility:[facility] Start: 07-29-2022 End: 07-30-[address] CHRISTIAN AUSTIN Facility:[facility] Start: 07-08-2022 End: 08-07-[address] CHRISTIAN AUSTIN Facility:[facility] Start: 06-06-2022 End: 07-07-[address] CHRISTIAN UASTIN Facility:[facility] Start: 05-24-2022 End: 05-25-[address] CHRISTIAN AUSTIN Facility:[facility] Start: 05-21-2022 End: 05-22-[address] CHRISTIAN AUSTIN Facility:[facility] Start: 05-07-2022 End: 06-05-2022 ambulatory SHAIKH So PAREDES Facility:[facility] Start: 04-07-2022 End: 05-06-2022 ambulatory SHAIKH So PAREDES Facility:[facility] Start: 03-12-2022 End: 03-13-[address] CHRISTIAN AUSTIN Facility:[facility] Start: 03-07-2022 End: 04-06-2022 ambulatory SHAIKH So PAREDES Facility:[facility] Start: 03-06-2022 Adult health examination Nay Akers Other [facility] [facility] Other Start: 03-01-2022 Problem, abnormal examination Nay Akers Other [facility] Other Start: 02-04-2022 End: 03-06-2022 ambulatory SHAIKH So PAREDES Facility:[facility] Start: 01-04-2022 End: 02-01-2022 ambulatory SHAIKH So PAREDES Facility:[facility] Procedures Date Procedure Procedure Detail Performing Clinician Start: 08-14-2016 Screening mammography A oliva Akers Other Start: 04-26-2014 General examination of patient Nay Akers Other Screening for malign ant neoplasm of breast Nay Akers Other Payers Date Payer Category Payer Medicare [id number] 1945 Unknown [id number] 2.16.84 [id number] 1945 Unknown [id number] 2.16.84 [id number] 1945 Unknown [id number] 2.16.84 0.1.816712.3.579.2.593 1945 Unknown [id number] 2.16.84 0.1.761703.3.579.2.593 1945 Unknown [id number] 2.16.84 0.1.579746.3.579.2.593 1945 Unknown [id number] 2.16.84 0.1.092786.3.579.2.593 1945 Unknown [id number] 2.16.84 0.1.782923.3.579.2.593 1945 Unknown [id number] 2.16.84 0.1.387250.3.579.2.593 1945 Unknown [id number] 2.16.84 0.1.427901.3.579.2.593 1945 Unknown [id number] 2.16.84 0.1.219701.3.579.2.593 1945 Unknown [id number] 2.16.84 0.1.400376.3.579.2.593 1945 Unknown [id number] 2.16.84 0.1.183089.3.579.2.593 1945 Unknown [id number] 2.16.84 0.1.200827.3.579.2.593 1945 Unknown [id number] 2.16.84 0.1.903209.3.579.2.593 1945 Unknown [id number] 2.16.84 0.1.471849.3.579.2.593 1945 Unknown [id number] 2.16.84 0.1.908690.3.579.2.593 Social History Date Type Detail Facility Unknown if ever smoked [employer] Other Sex Assigned At Sex Assigned At Bir [employer] Other Progress note 07-23-2023 Note Date & Type Note Facility 07-23-2023 Note Hypertension is well controlled B/p 110/62 Continue norvasc, lisinopril/ hydrochlorothiazide and toprol Check BMP [facility] Progress note 07-23-2023 Note Date & Type Note Facility 07-23-2023 Note Coronary artery dise ase is stable Continue GDMT- ASA, lipitor, toprol, and lisinopril continue risk factor modifications- heart healthy diet, regular exercise as tolerated and continue all medications. [facility] Progress note 07-23-2023 Note Date & Type Note Facility 07-23-2023 Note Continue ASA and lip itor Carotid US to evaluate degree of stenosis. Script for BMP and Lipid profile [facility] Progress note 07-23-2023 Note Date & Type Note Facility 07-23-2023 Note No concerning sympto ms today, reviewed previous echocardiogram with noted small leak and pt voiced she already knew from D/W Dr Marin last year. [facility] Progress note 07-23-2023 Note Date & Type Note Facility 07-23-2023 Note [id number]= 5 Age, Female, HTN, CAD Remains on amiodarone, and toprol for rate and rhythm control. Warfarin for anticoagulation- denied bleeding tendencies. Recent LFT, Thyroid function, CXR and PFT reviewed with pt- no acute concerns. D/W pt she will need to have annual LFT, Thyroid function, CXR, PFT and eye exam and she voiced understanding. [facility] Progress note 07-23-2023 Note Date & Type Note Facility 07-23-2023 Note [facility] PROGR ESS NOTE HPI: Elizabeth Eugene is a 78 y.o. female here for routine 6 month F/U HPI Pleasant 78 yo female presents today for known h/o hypertension, atrial fibrillation, fenestrated ASD and PFO with [id number]-cy-vamdc shunting and enlarged right atrium and ventricle. She is status post cardioversion of atrial fibrillation and is maintained on amiodarone and warfarin therapy. She is status post closure of the ASD's on 06/10/2018 with a single Amplatzer multi fenestrated 35 mm septal occluder device. She has coronary artery disease with chronic total occlusion of the distal right coronary artery with filling of the distal vessel via [id number] collaterals and no significant disease in the left coronary system by cardiac catheterization in May 2018. She has moderate bilateral carotid artery stenosis by prior ultrasound. Currently she presents to clinic with granddaughter. Denied chest pain, shortness of breath, orthopnea, palpitations. Denied any activity limiting symptoms. Denied any bleeding tendencies, palpitations Review of Systems Constitutional: Negative. Respiratory: Negative. Cardiovascular: Negative. Neurological: Negative. All other systems reviewed and are negative. Previous HPI per Dr Marin HPI Elizabeth is seen in follow-up. She is a 77-year-old woman with history of hypertension, atrial fibrillation, fenestrated ASD and PFO with fkyv-lv-yumxw shunting and enlarged right atrium and ventricle. She is status post cardioversion of atrial fibrillation and is maintained on amiodarone and warfarin therapy. She is status post closure of the ASD's on 06/10/2018 with a single Amplatzer multi fenestrated 35 mm septal occluder device. She has coronary artery disease with chronic total occlusion of the distal right coronary artery with filling of the distal vessel via [id number]-xz-cujsr collaterals and no significant disease in the left coronary system by cardiac catheterization in May 2018. She has moderate bilateral carotid artery stenosis by prior ultrasound. Today she is seen in follow-up. She reports that she has been doing well. she denies chest pain, shortness of breath, palpitations, dizziness, syncope and leg edema. she has good exercise tolerance. There is no claudication. Visit Vitals BP 110/62 (BP Location: Left arm, Patient Position: Sitting, BP Cuff Size: Adult) Pulse 57 Resp 12 Ht 1.499 m (4' 11 ) Wt 65.8 kg (145 lb) SpO2 98% BMI 29.29 kg/m??? Smoking Status Never BSA 1.66 m??? No Known Allergies Medications: Current Outpatient Medications on File Prior to Visit Medication Sig Dispense Refill amiodarone (Pacerone) 100 mg tablet Take 1 tablet (100 mg) by mouth in the morning. 90 tablet 3 amLODIPine (Norvasc) 5 mg tablet Take 1 tablet (5 mg) by mouth in the morning. 90 tablet 3 aspirin 81 mg EC tablet Take 1 tablet every day by oral route. lisinopriL-hydrochlorothiazide 20-12.5 mg tablet Take 0.5 tablets by mouth in the morning. 45 tablet 3 metoprolol succinate XL (Toprol-XL) 50 mg 24 hr tablet Take 1 tablet (50 mg) by mouth in the morning and at bedtime. (Patient taking differently: Take 100 mg by mouth in the morning and at bedtime.) 180 tablet 3 warfarin (Coumadin) 2 mg tablet TAKE DIRECTED PER COUMADIN CLINIC [DISCONTINUED] atorvastatin (Lipitor) 40 mg tablet Take 1 tablet (40 mg) by mouth at bedtime. 90 tablet 3 No current facility-administered medications on file prior to visit. Physical Exam: Constitutional: Appearance: Normal appearance. Without apparent distress HENT: Head: Normocephalic and atraumatic. Nose: Nose normal. Mouth/Throat: Mouth: Mucous membranes are moist. Eyes: Extraocular Movements: Extraocular movements intact. Conjunctiva/sclera: Conjunctivae normal. Neck: Vascular: No JVD. Cardiovascular: Rate and Rhythm: Normal rate and regular rhythm. Pulses: Dorsalis pedis pulses are 3 on the right side and 3on the left side. Posterior tibial pulses are 3 on the right side and 3 on the left side. Heart sounds: Normal heart sounds, S1 normal and S2 normal. Pulmonary: Effort: Pulmonary effort is normal. Breath sounds: Normal breath sounds. Abdominal: General: Bowel sounds are normal. Palpations: Abdomen is soft. Musculoskeletal: General: Normal range of motion. Cervical back: Normal range of motion. Right lower leg: No edema. Left lower leg: No edema. Skin: General: Skin is warm and dry. Capillary Refill: Capillary refill takes less than 2 seconds. Neurological: General: No focal deficit present. Mental Status: She is alert and oriented to person, place, and time. Psychiatric: Mood and Affect: Mood normal. Behavior: Behavior normal. Thought Content: Thought content normal. Judgment: Judgment normal. Labs: 06/27/23- reviewed with pt AST 16, ALT 17, ALP 62- normal TSH 4.317-elevated, FT4 1.33 normal HGB 11.5 07/2021 lipids stable Last (more content not included)... [facility] Evaluation note 07-10-2023 Note Date & Type Note Facility 07-10-2023 Evaluation note Encounter Date Diagnosis Assessment Notes Jul, Acute bacterial conjunctivitis of both eyes (ICD-10 - H10.33) Discussed diagnosis with patient. Advised patient to use eye drops as prescribed, discussed proper administration. Contagious until after 24 hours on antibiotic eye drops. Advised good hand hygiene and infection control, wash linens and bedding, do not touch eye directly with eye drop bottle, wipe off bottle after every use, do not share eye drop bottles. Apply cool compress to eye several times a day, clean eye with warm, most cloth from inner to outer canthus. Avoid eye makeup until sx resolve, discard all eye makeup that was used at time of infection. Eye symptoms should improve in 2-3 days with treatment, if no improvement follow up with PCP or eye doctor. Immediate eval if symptoms worsen, eye pain, vision changes, redness and swelling occur around the eye, headache, fever, N/V or any other concerning symptoms. Patient verbalizes understanding and is agreeable to treatment plan. [employer] Other Progress note 01-21-2023 Note Date & Type Note Facility 01-21-2023 Note [facility] Subjective Elizabeth Eugene is a 77 y.o. year old female patient being seen for Follow-up (6 month w echo) Patient Active Problem List Diagnosis Arthritis Atrial fibrillation (CMS/HCC) Atrial septal defect within oval fossa Carotid artery stenosis Coronary atherosclerosis Depressive disorder Fibrocystic disease of breast Hypertensive disorder Right atrial dilatation Right ventricular dilation Family History Problem Relation Name Age of Onset Hypertension Mother Stroke Mother Atrial fibrillation Sister Lung cancer Brother Social History Tobacco Use Smoking status: Never Smokeless tobacco: Never Substance Use Topics Alcohol use: Yes Comment: occasional Drug use: Never ZAHRAA Elizabeth is seen in follow-up. She is a 77-year-old woman with history of hypertension, atrial fibrillation, fenestrated ASD and PFO with zqic-hi-lphjy shunting and enlarged right atrium and ventricle. She is status post cardioversion of atrial fibrillation and is maintained on amiodarone and warfarin therapy. She is status post closure of the ASD's on 06/10/2018 with a single Amplatzer multi fenestrated 35 mm septal occluder device. She has coronary artery disease with chronic total occlusion of the distal right coronary artery with filling of the distal vessel via [id number]-dq-gmvtr collaterals and no significant disease in the left coronary system by cardiac catheterization in May 2018. She has moderate bilateral carotid artery stenosis by prior ultrasound. Today she is seen in follow-up. She reports that she has been doing well. she denies chest pain, shortness of breath, palpitations, dizziness, syncope and leg edema. she has good exercise tolerance. There is no claudication. Review of Systems Constitutional: Positive for malaise/fatigue. Cardiovascular: Positive for leg swelling. Respiratory: Positive for cough and shortness of breath. Musculoskeletal: Positive for back pain. All other systems reviewed and are negative. Objective Visit Vitals BP 112/61 (BP Location: Left arm, Patient Position: Sitting, BP Cuff Size: Adult) Pulse 55 Ht 1.499 m (4' 11 ) Wt 64.7 kg (142 lb 9.6 oz) SpO2 98% BMI 28.80 kg/m??? Smoking Status Never BSA 1.64 m??? Physical Exam Constitutional: Appearance: She is well-developed. She is not ill-appearing. HENT: Head: Normocephalic and atraumatic. Nose: Nose normal. Eyes: General: No scleral icterus. Pupils: Pupils are equal, round, and reactive to light. Neck: Thyroid: No thyromegaly. Vascular: No JVD. Cardiovascular: Rate and Rhythm: Normal rate and regular rhythm. Pulses: Radial pulses are 2+ on the right side and 2+ on the left side. Heart sounds: Normal heart sounds. No murmur heard. No friction rub. No gallop. Pulmonary: Effort: Pulmonary effort is normal. No respiratory distress. Breath sounds: Normal breath sounds. No wheezing or rales. Chest: Chest wall: No tenderness. Abdominal: General: Bowel sounds are normal. There is no distension. Palpations: Abdomen is soft. Tenderness: There is no abdominal tenderness. Musculoskeletal: General: No swelling. Cervical back: Neck supple. Skin: General: Skin is warm and dry. Neurological: General: No focal deficit present. Mental Status: She is alert and oriented to person, place, and time. Psychiatric: Mood and Affect: Mood normal. Behavior: Behavior is cooperative. Judgment: Judgment normal. Allergies No Known Allergies Medications Current Outpatient Medications: amiodarone (Pacerone) 100 mg tablet, Take 1 tablet (100 mg) by mouth in the morning., Disp: 90 tablet, Rfl: 3 aspirin 81 mg EC tablet, Take 1 tablet every day by oral route., Disp: , Rfl: atorvastatin (Lipitor) 40 mg tablet, Take 1 tablet (40 mg) by mouth at bedtime., Disp: 90 tablet, Rfl: 3 lisinopriL-hydrochlorothiazide 20-12.5 mg tablet, Take 0.5 tablets by mouth in the morning., Disp: 45 tablet, Rfl: 3 metoprolol succinate XL (Toprol-XL) 50 mg 24 hr tablet, Take 1 tablet (50 mg) by mouth in the morning and at bedtime. (Patient taking differently: Take 100 mg by mouth in the morning and at bedtime.), Disp: 180 tablet, Rfl: 3 warfarin (Coumadin) 2 mg tablet, TAKE DIRECTED PER [facility], Disp: , Rfl: amLODIPine (Norvasc) 5 mg tablet, Take 1 tablet (5 mg) by mouth in the morning., Disp: 90 tablet, Rfl: 3 Recent Labs No visits with results within 6 Month(s) from this visit. Latest known visit with results is: [facility] Encounter on 12/18/2018 Component Date Value Creatinine 12/18/2018 1.18 eGFR - Non- Ameri* 12/18/2018 45 (A) eGFR - 12/18/2018 55 (A) 07/29/2022: normal LFTs and TFTs. Imaging and other tests Echocardiogram 08/16/2022: Normal LV systolic function, EF 60%, normal RV size and systolic function. Severe left atrial dilatation. Normal right atrial size. Interatrial septal (more content not included)... [facility] History general Narrative - Reported Note Date & Type Note Facility History general Narrative - Reported Type Medical History Problem Title : comp liance with medical treatment, Problem Description : compliance with medical treatment, Problem Comment : Done, Problem Status : Active,, Medical History Problem Title : lucio nary artery disease, hx of, Problem Description : coronary artery disease, hx of, Problem Comment : no, Problem Status : Active,, Medical History Problem Title : Depr ession Screening, Problem Description : Depression Screening, Problem Comment : Negative, Problem Status : Active,, Medical History Problem Title : diab etes mellitus, hx of, Problem Description : diabetes mellitus, hx of, Problem Comment : no, Problem Status : Active,, Medical History Problem Title : Fall assessment-Total score, Problem Description : Fall assessment-Total score, Problem Comment : Complete Low Risk, Problem Status : Active,, Medical History Problem Title : Fall Risk Assessment: I am worried about falling, Problem Description : Fall Risk Assessment: I am worried about falling, Problem Comment : No, Problem Status : Active,, Medical History Problem Title : Fall Risk Assessment: Sometimes I feel unsteady when I am walking, Problem Description : Fall Risk Assessment: Sometimes I feel unsteady when I am walking, Problem Comment : No, Problem Status : Active,, Medical History Problem Title : fall s in the last twelve months, Problem Description : falls in the last twelve months, Problem Comment : No, Problem Status : Active,, Medical History Problem Title : Fall s: Risk Assessment - Patient screened for falls, fall risk, Problem Description : Falls: Risk Assessment - Patient screened for falls, fall risk, Problem Comment : Done, Problem Status : Active,, Medical History Problem Title : hype rlipidemia, hx of, Problem Description : hyperlipidemia, hx of, Problem Comment : no, Problem Status : Active,, Medical History Problem Title : hype rtension, hx of, Problem Description : hypertension, hx of, Problem Comment : yes, Problem Status : Active,, Medical History Problem Title : Inju ry sustained from fall(s)?, Problem Description : Injury sustained from fall(s)?, Problem Comment : No, Problem Status : Active,, Medical History Problem Title : no k nown problems, Problem Description : no known problems, Problem Comment : F, Problem Status : Active,, Medical History Problem Title : Numb er of previous fall in past year, Problem Description : Number of previous fall in past year, Problem Comment : 0, Problem Status : Active,, Medical History Problem Title : past medical history E&M, Problem Description : past medical history E&M, Problem Comment : HTN depression Arthirits AR Fibrocystic breast disease, Problem Status : Active,, Medical History Problem Title : past medical history reviewed, Problem Description : past medical history reviewed, Problem Comment : reviewed - no changes required, Problem Status : Active,, Medical History Problem Title : PHQ2 Questionairre Score, Problem Description : PHQ2 Questionairre Score, Problem Comment : 0, Problem Status : Active,, Medical History Problem Title : PHQ9 Question One score, Problem Description : PHQ9 Question One score, Problem Comment : 0, Problem Status : Active,, Medical History Problem Title : PHQ9 Question Two score, Problem Description : PHQ9 Question Two score, Problem Comment : 0, Problem Status : Active,, Medical History Problem Title : Prob lems Reconciled, Problem Status : Active,, Medical History Problem Title : very low density lipoproteins, Problem Description : very low density lipoproteins, Problem Comment : 33.0, Problem Status : Active,, Surgical History Problem Title : past surgical history reviewed, Problem Description : past surgical history reviewed, Problem Comment : reviewed - no changes required, Problem Status : Active, Surgical History Problem Title : surg ical procedures, hx of, Problem Description : surgical procedures, hx of, Problem Comment : L breast sterotactic biopsy 12/10 , Problem Status : Active, Surgical History Problem Title : surg ical procedures, hx of, Problem Description : surgical procedures, hx of, Problem Comment : L breast sterotactic biopsy 12/10 Repair of ASD 06/2018 - [facility], Problem Status : Active, [employer] Other Summary Purpose Family History No Family History Records FoundNo Family History Records FoundNo Family History Records Found Advance Directives No Advanced Directives Records FoundNo Advanced Directives Records FoundNo Advanced Directives Records Found Additional Source Comments INFORMATION SOURCE (unrecogn ized section and content) DATE CREATED AUTHOR 07/29/[address] [facility] DATE CREATED AUTHOR AUTHOR'S ORGANIZ ATION 12/13/2022 [facility] DATE CREATED AUTHOR AUTHOR'S ORGANIZ ATION 07/24/2023 [facility] REASON FOR VISIT (unrecogniz ed section and content) POSS RIGHT [employer] FOR RECORDS PERTAINING TO PATIENTS WHO ARE OR HAVE BEEN ENROLLED IN A CHEMICAL DEPENDENCY/SUBSTANCEABUSE PROGRAM, SOME INFORMATION MAY BE OMITTED. This clinical summary was aggregated from multiple sources. Caution should be exercised in using it in the provision of clinical care. This summary normalizes information from multiple sources, and as a consequence, information in this document may materially change the coding, format and clinical context of patient data. In addition, data may be omitted in some cases. CLINICAL DECISIONS SHOULD BE BASED ON THE PRIMARY CLINICAL RECORDS. [employer] [facility]. provides no warranty or guarantee of the accuracy or completeness of information in this document.
--- NOTE | 2023-07-30 08:18 | US_ITS ---
[address] [address] Patient Name: ELIZABETH ABBASI MRN: [id number] date: 1945 Sex: F Assigned Patient Location: Current Patient Location: [place] Accession/Order Number: [id number] Exam Date: 07/30/2023 08:19 Report Date: 07/30/2023 10:47 At the request of: ROSA MARIA DAILEY Procedure: US carotid duplex BI EXAMINATION: US carotid duplex BI HISTORY: Carotid Stenosis Bilateral I65.23 COMPARISON: No relevant comparison available. TECHNIQUE: Duplex Doppler ultrasound analysis of carotid and vertebral arteries. . Bilateral carotid arterial duplex examination was performed using B-mode, color flow and spectral analysis. Carotid stenosis is reported according to validated velocity parameters, similar to NASCET criteria. FINDINGS: RIGHT CAROTID ARTERY Moderate atherosclerotic plaque. 84% area reduction in the carotid bulb Subclavian: PSV: 171.6 cm/s cm/s EDV: 0.0 cm/s cm/s CCA: Prox: PSV: 82.6 cm/s cm/s EDV: 19.5 cm/s cm/s Mid: PSV: 69.8 cm/s cm/s EDV: 15.4 cm/s cm/s Distal: PSV: 85.3 cm/s cm/s EDV: 19.3 cm/s cm/s BULB: PSV: 88.5 cm/s cm/s EDV: 23.5 cm/s cm/s ICA: Prox: PSV: 291.0 cm/s cm/s EDV: 54.0 cm/s cm/s Mid: PSV: 151.1 cm/s cm/s EDV: 38.5 cm/s cm/s Distal: PSV: 95.0 cm/s cm/s EDV: 27.6 cm/s cm/s ECA: PSV: 120.5 cm/s cm/s EDV: 11.4 cm/s cm/s VERTEBRAL: PSV: 62.5 cm/s cm/s EDV: 8.7 cm/s cm/s, antegrade ICA/CCA ratio: PSV: 3.4 EDV: 2.8 LEFT CAROTID ARTERY Moderate atherosclerotic plaque. 76% area reduction in the carotid bulb Subclavian: PSV: 183.6 cm/s cm/s EDV: 0.0 cm/s CCA: Prox: PSV: 74.1 cm/s cm/s EDV: 16.0 cm/s Mid: PSV: 62.9 cm/s cm/s EDV: 17.5 cm/s Distal: PSV: 78.6 cm/s cm/s EDV: 15.6 cm/s BULB: PSV: 116.0 cm/s cm/s EDV: 25.4 cm/s ICA: Prox: PSV: 102.2 cm/s cm/s EDV: 19.5 cm/s Mid: PSV: 123.9 cm/s cm/s EDV: 27.4 cm/s Distal: PSV: 78.6 cm/s cm/s EDV: 25.4 cm/s ECA: PSV: 123.8 cm/s cm/s EDV: 7.7 cm/s VERTEBRAL: PSV: 82.5 cm/s cm/s EDV: 21.5 cm/s , antegrade ICA/CCA ratio: PSV: 1.6 EDV: 1.8 US/US carotid duplex BI IMPRESSION: Significant flow stenosis in the carotid bulbs, 84% on the right, 76% left >70% flow stenosis in the right internal carotid artery by flow velocity 0-49% flow stenosis left internal carotid artery by flow velocity Spectral Doppler US Thresholds (Reference: Ernst EG, et al. Radiology 2000; 214:247-252) Stenosis (%) PSV (cm/sec) VICA/VCCA 0-49 <150 <2.5 50-69 150-225 2.5-4.0 >70 >225 >4.0 Electronically authenticated by: JANET BORDEN Date: 07/30/2023 10:47
[2023-07-30 09:00] LABS: Anion Gap 15.1; BUN Creatinine Ratio 14.4; Calcium 9.4 mg/dL (8.5-10.1); Carbon Dioxide 27.1 mmol/L (21.0-32.0); Chloride 103 mmol/L (98-107); Chol HDL Ratio 2.5; Cholesterol 170 mg/dL (<=200); Estimated GFR (African America 45 (>=60); Estimated GFR (Non-African Ame 37 (>=60); Glucose 106 mg/dL (74-106); HDL Cholesterol 69 mg/dL (40-60); Potassium 4.2 mmol/L (3.5-5.1); Sodium 141 mmol/L (136-145); Triglycerides 94 mg/dL (<=150); VLDL CHOLESTEROL 18.8 mg/dL
== END 2023-07-30 07:59 | disposition home or self-care (01) ==
LOC: US 07:59
PROVIDERS: PCP Family Medicine; Visit Provider Nurse Practitioner
DX: I65.23 Occlusion and stenosis of bilateral carotid arteries (principal); I25.10 Atherosclerotic heart disease of native coronary artery without angina pectoris; E78.5 Hyperlipidemia, unspecified
CPT/HCPCS: 36415; 80048; 80061; 93880

== ENCOUNTER 2023-08-07 01:43 | Outpatient (RCR) | payer MEDICARE, SELFPAY | END 2023-09-04 17:24 | disposition home or self-care (01) | LOC: MM 01:43 | PROVIDERS: PCP Family Medicine; Visit Provider Internal Medicine | DX: Z51.81 Encounter for therapeutic drug level monitoring (principal); Z79.01 Long term (current) use of anticoagulants; I48.20 Chronic atrial fibrillation, unspecified | CPT/HCPCS: 85610; G0463 ==

== ENCOUNTER 2023-09-05 03:32 | Outpatient (RCR) | payer MEDICARE, SELFPAY | END 2023-10-03 14:11 | disposition home or self-care (01) | LOC: MM 03:32 | PROVIDERS: PCP Family Medicine; Visit Provider Internal Medicine | DX: Z51.81 Encounter for therapeutic drug level monitoring (principal); Z79.01 Long term (current) use of anticoagulants; I48.91 Unspecified atrial fibrillation | CPT/HCPCS: 85610; G0463 ==

== ENCOUNTER 2023-10-06 03:21 | Outpatient (RCR) | payer MEDICARE, SELFPAY | END 2023-11-04 18:13 | disposition home or self-care (01) | LOC: MM 03:21 | PROVIDERS: PCP Family Medicine; Visit Provider Internal Medicine | DX: Z51.81 Encounter for therapeutic drug level monitoring (principal); Z79.01 Long term (current) use of anticoagulants; I48.20 Chronic atrial fibrillation, unspecified | CPT/HCPCS: 85610; G0463 ==

== ENCOUNTER 2023-10-06 08:40 | Outpatient (OUT) | payer MEDICARE, SELFPAY ==
--- OUTSIDE RECORDS SUMMARY | 2023-10-06 09:00 | XMS_ITS | CCD ---
Author Organization [facility] Care Team Providers Care Farm Advisor Name Role Phone DR CHRISTIAN AUSTIN Primary Care Unavailable FAWWAD, [...] DR JANET Temple Consulting Unavailable AUSTIN, DR CHRITSIAN Hawley Attending Unavailable AUSTIN, DR CHRISTIAN Hawley Admitting Unavailable AUSTIN, DR CHRISTIAN Hawley Consulting Unavailable ASHLIE, ROSA MARIA Attending Unavailable AUSTIN, DR CHRISTIAN Hawley Primary Care Unavailable ASHLIE, ROSA MARIA Admitting Unavailable ASHLIE, ROSA MARIA Consulting Unavailable AUSTIN, DR CHRISTIAN Hawley Primary Care Unavailable CLAIRE MARIN Attending Unavailable NANI, DR JEFF Patel Consulting Unavailable CLAIRE MARIN Admitting Unavailable CLAIRE MARIN Consulting Unavailable AUSTIN, DR CHRISTIAN Hawley Primary [...] Attending Unavailable FAWWAD, KELLER H Admitting Unavailable Akers, Nay Unavailable ROSA MARIA DAILEY Attending Unavailable CLAIRE MARIN Attending Unavailable CLAIRE MARIN Attending Unavailable Allergies Allergy Classification Reported Allergen(s) Allergy Type Date of Onset Reaction(s) Facility (1 source) patient allergy list reviewed by nurse or physicia Propensity to adverse reactions Comment:Done [facility] Other (1 source) Allergies Reconciled Propensity to adverse reactions Unknown [facility] Other Medications Current Medications Medication Drug Class(es) Dates Sig (Normalized) Sig (Original) alendronic acid 70 mg oral tablet (1 source) Bisphosphonate Start: 03-06-2022 take 1 tablet by mouth every week Fosamax 70MG Fosamax 70MG, 1 (one) Tablet weekly # 12, 03/06/2022, Ref. x3. Active Oral weekly for 90 *Pick strength-form from [facility] for eRX* Feb, Active amiodarone hydrochloride 100 mg oral tablet (1 source) Antiarrhythmic Start: 03-01-2022 take 100 mg by mouth once daily Amiodarone HCl 100MG Amiodarone HCl( 100MG Oral daily ) Active -Hx Entry Oral daily for 0 *Pick strength-form from [facility] for eRX* Feb, Active aspirin 81 mg [...] Oral daily for 0 *Pick strength-form from [facility] for eRX* Aug, Active simvastatin 40 mg oral tablet (1 source) HMG-CoA Reductase Inhibitor Start: 03-01-2022 Simvastatin 40MG Simvastatin( 40MG Oral ) Active -Hx Entry Oral for 0 *Pick strength-form from [facility] for eRX* Feb, Active warfarin sodium 5 mg oral tablet (1 source) Vitamin K Antagonist Start: 03-01-2022 Warfarin Sodium 5MG Warfarin Sodium( 5MG Oral ) Active -Hx Entry Oral for 0 *Pick strength-form from [facility] for eRX* Feb, Active Problems Active Problems Problem Classification Problem Date Documented Date Episodic/Chronic Cardiac and circulatory congenital anomalies (1 source) Atrial septal defect; Translations: [Atrial septal defect] Onset: 04-17-2018 Chronic Cardiac and circulatory congenital anomalies (2 sources) Personal history of (corrected) congenital malformations of heart and circulatory system; Translations: [Personal history of (corrected) congenital malformations of heart and circulatory system] Onset: 09-08-2023 Episodic Cardiac dysrhythmias (8 sources) Paroxysmal atrial fibrillation; Translations: [Paroxysmal atrial fibrillation] Onset: 04-17-2018 Chronic Cardiac dysrhythmias (3 sources) Bradycardia, unspecified; Translations: [Bradycardia] Onset: 04-26-2014 Episodic Coronary atherosclerosis and other heart disease (2 sources) Atherosclerotic heart disease of [place] coronary artery without angina pectoris; Translations: [Atherosclerotic heart disease of [place] coronary artery without angina pectoris] Onset: 03-14-2022 [...] Onset: 11-02-2022 Episodic Other aftercare (1 source) 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; Translations: [ALF CURRNT USE ANTICOAGULANTS] Onset: 12-04-2022 Episodic Other [...] Translations: [Acute bronchitis, unspecified] Onset: 07-30-2017 Episodic Heart valve disorders (1 source) O/E - cardiac murmur; Translations: [Cardiac murmur, unspecified] Onset: 03-03-2017 Episodic Malaise and fatigue (1 source) Fatigue; Translations: [Other fatigue] Onset: 04-03-2018 Episodic Other aftercare (4 sources) Other alf (current) drug therapy; Translations: [OTH ALF CURRENT DRUG THERAPY] Onset: 07-29-2022 Episodic Other bone disease and musculoskeletal deformities (1 source) Other specified disorders of bone density and structure, left thigh; Translations: [OTH D/O BONE DEN STRUCT LT THIGH] Onset: 05-27-2022 Episodic Other lower respiratory disease (1 source) Dyspnea; Translations: [Other forms of dyspnea] Onset: 04-03-2018 Episodic Other screening for suspected conditions (not mental disorders or infectious disease) (5 sources) Encounter for screening mammogram for malignant neoplasm of breast; Translations: [Electrocardiogra m abnormal] Onset: 04-26-2014 Episodic Other upper respiratory [...] Value Interpretation Reference Range Facility Office Visiton 09-08-2023 Follow-up visit [id number] Estephanie Eugene ra 1945 F Date Provider Department Center 09/08/2023 Alexandro-CLAIRE MARIN GOSIA [facility] Family History Problem Relation Age of Onset Hypertension Mother Stroke Mother Atrial fibrillation Sister Lung cancer Brother Family Status - Relation Status Age at Mother Sister Brother Level of Service:[id number] NE OFFICE/OUTPATIENT ESTABLISHED MOD MDM [address] [facility] 36on 08-06-2023 36 Patient had carotid duplex recently. Amy wanted your opinion on it. It's scanned into [facility] [employer] for your review. Amy increased her atorvastatin to 80mg after recent lipid. Please advise. Thanks. Normal [facility] Office Visiton 07-23-2023 Follow-up visit [id number] Estephanie Eugene ra Nilda 1945 Date Provider Department Center 07/23/2023 JADONROSA MARIA SHARDA [facility] Family History Problem Relation Age of Onset Hypertension Mother Stroke Mother Atrial fibrillation Sister Lung cancer Brother Family Status - Relation Status Age at Mother Sister Brother Level of Service:[id number] NE OFFICE/OUTPATIENT ESTABLISHED MOD MDM 30 MIN Reason for Visit and Comments: Follow-up [165669] Normal [facility] Office Visiton 01-21-2023 Follow-up visit [id number] Estephanie Eugene ra [place]unguia 1945 Date Provider Department Center 01/21/2023 AlexandroJOSÉ MIGUELCLAIRE GAN SHARDA [facility] Family History Problem Relation Age of Onset Hypertension Mother Stroke Mother Atrial fibrillation Sister Lung cancer Brother Family Status - Relation Status Age at Mother Sister Brother Level of Service:35964 NE OFFICE/OUTPATIENT ESTABLISHED MOD MDM 30-39 MIN Reason for Visit and Comments: Follow-up [138929] - [address] [facility] ECHOCARDIO M/2D COMPLETEon 0 08-14-2022 ECHOCARDIO M/2D COMPLETE Patient: ELIZABETH EUGENE Exam Date: 08/14/2022 : 1945 Gender:F Ordering : ROSA MARIA DAILEY Admission #: [id number] Family : DR CHRISTIAN AUSTIN M.D. Order #: [id number] CLICK HERE TO VIEW EXAM ECHOCARDIOGRAM REPORT [...] across the septum with a small residual [id number] shunt by color Doppler. 6. Mild mitral [...] Marin M.D. on 08/15/2022 at 18:36 Normal [facility] FREE T4on 07-29-2022 Free T4 [Mass/Vol] 1.43 ng/dL Normal 0.76-1.46 [facility] Comment on above: Performed By: #### F T4 #### [facility] [address] [place] [address] Dr. Adrian Becker LIVER PROFILEon 07-29-2022 Albumin [Mass/Vol] 3.8 g/dL Normal 3.4-5.0 [facility] Comment on above: Performed By: #### T SH, LIVER #### [facility] [address] [place] [address] Dr. Adrian Becker Albumin/Globulin [Mass ratio] 1.0 {ratio} Normal [facility] Comment on above: Performed By: #### T SH, LIVER #### [facility] [address] [place] [address] Dr. Adrian Becker ALP [Catalytic activity/Vol] 66 U/L Normal 46-116 [facility] Comment on above: Performed By: #### T SH, LIVER #### [facility] [address] [place] [address] Dr. Adrian Becker ALT [Catalytic activity/Vol] 20 U/L Normal 14-59 [facility] Comment on above: Performed By: #### T SH, LIVER #### [facility] [address] [place] [address] Dr. Adrian Becker AST [Catalytic activity/Vol] 25 U/L Normal 15-37 [facility] Comment on above: Performed By: #### T SH, LIVER #### [facility] [address] [place] [address] Dr. Adrian Becker BILI, CONJUGATED 0.1 mg/dL Normal 0.0-0.2 [facility] Comment on above: Performed By: #### T SH, LIVER #### [facility] [address] [place] [address] Dr. Adrian Becker Bilirubin [Mass/Vol] 0.3 mg/dL Normal 0.2-1.0 [facility] Comment on above: Performed By: #### T SH, LIVER #### [facility] [address] [place] [address] Dr. Adrian Becker Globulin (S) [Mass/Vol] 3.9 g/dL Normal [facility] Comment on above: Performed By: #### T SH, LIVER #### [facility] [address] [place] [address] Dr. Adrian Becker Protein [Mass/Vol] 7.7 g/dL Normal 6.4-8.2 [facility] Comment on above: Performed By: #### T SH, LIVER #### [facility] [address] [place] [address] Dr. Adrian Becker TSHon 07-29-2022 TSH 2.876 uIU/mL Normal 0.358-3.740 [facility] Comment on above: Performed By: #### T SH, LIVER #### [facility] [address] [place] [address] Dr. Adrian Becker XR CHEST 2 Von [...] by: JEFF CARDOZA Date: 2022-07-29 13:46 Normal [facility] XR DEXA BONE DENSITYon 05-24 XR [...] by: JANET BORDEN Date: 2022-05-24 15:40 Normal [facility] MAMM SCREEN 3D ENRRIQUE CADon 05-21-2022 MG MAMM SCREEN 3D ENRRIQUE CAD Patient: ELIZABETH EUGENE Exam Date: 05/21/2022 : 1945 Gender:F Ordering : DR CHRISTIAN AUSTIN M.D. Admission #: [id number] Family : Order #: [id number] CLICK HERE TO VIEW EXAM RADIOLOGY REPORT PROCEDURE: MAMMOGRAM SCREENING 3D BILATERAL CAD COMPARISON: MG MAMM SCREEN ENRRIQUE W CAD, 05/11/2020. INDICATIONS: Screening mammography Calculator Name NCI Breast Cancer Risk Assessment Tool 5 Year Breast Cancer Risk 1.50% Lifetime Breast Cancer Risk 3.30% Personal Breast Cancer No Personal Ovarian Cancer No Treatments None Family Cancers None LOCATION: [facility] BREAST COMPOSITION: Heterogeneously dense,which may obscure [...] Borden MD on 05/21/2022 at 13:48 Normal [facility] CBC AUTO DIFFon 03-12-2022 BASO # 0.1 103/ul Normal 0.0-0.1 [facility] Comment on above: Performed By: #### C BC #### [facility] [address] [address] [address] Adrian Becker Basophils/100 WBC (Bld) 1.1 % Normal 0.2-2.0 [facility] Comment on above: Performed By: #### C BC #### [facility] [address] [place] [address] Dr. Adrian Becker EO # 0.1 103/ul Normal 0.0-0.7 [facility] Comment on above: Performed By: #### C BC #### [facility] [address] [place] [address] Dr. Adrian Becker Eosinophils/100 WBC (Bld) 2.1 % Normal 0.9-7.0 [facility] Comment on above: Performed By: #### C BC #### [facility] [address] [place] [address] Dr. Adrian Becker Erythrocyte distribution width (RBC) [Ratio] 14.1 % Normal 11.0-15.0 [facility] Comment on above: Performed By: #### C BC #### [facility] [address] [place] [address] Dr. Adrian Becker Hematocrit (Bld) [Volume fraction] 33.5 % Critically low 36.0-48.0 [facility] Comment on above: Performed By: #### C BC #### [facility] [address] [place] [address] Dr. Adrian Becker Hemoglobin (Bld) [Mass/Vol] 11.1 g/dL Critically low 12.0-16.0 [facility] Comment on above: Performed By: #### C BC #### [facility] [address] [place] [address] Dr. Adrian Becker IG # 0.02 10e3/ul Normal 0.00-0.03 [facility] Comment on above: Performed By: #### C BC #### [facility] [address] [place] [address] Dr. Adrian Becker IG % 0.3 % Normal 0.0-0.5 [facility] Comment on above: Performed By: #### C BC #### [facility] [address] [address] [address] Adrian Becker LYMPH # 1.8 103/ul Normal 1.2-3.8 [facility] Comment on above: Performed By: #### C BC #### [facility] [address] [place] [address] Dr. Adrian Becker Lymphocytes/100 WBC (Bld) 29.0 % Normal 20.5-60.0 [facility] Comment on above: Performed By: #### C BC #### [facility] [address] [place] [address] Dr. Adrian Becker MANUAL DIFF REQ NO Normal [facility] Comment on above: Performed By: #### C BC #### [facility] [address] [place] [address] Dr. Adrian Becker MCH (RBC) [Entitic mass] 29.8 pg Normal 26.7-34.0 [facility] Comment on above: Performed By: #### C BC #### [facility] [address] [place] [address] Dr. Adrian Becker MCHC (RBC) [Mass/Vol] 33.1 g/dL Normal 29.9-35.2 [facility] Comment on above: Performed By: #### C BC #### [facility] [address] [place] [address] Dr. Adrian Becker MCV (RBC) [Entitic vol] 89.8 fL Normal 81.0-99.0 [facility] Comment on above: Performed By: #### C BC #### [facility] [address] [place] [address] Dr. Adrian Becker MONO # 0.4 103/ul Normal 0.3-0.8 [facility] Comment on above: Performed By: #### C BC #### [facility] [address] [place] [address] Dr. Adrian Becker Monocytes/100 WBC (Bld) 6.1 % Normal 1.7-12.0 [facility] Comment on above: Performed By: #### C BC #### [facility] [address] [place] [address] Dr. Adrian Becker NEUT # 3.8 103/ul Normal 1.4-6.5 [facility] Comment on above: Performed By: #### C BC #### [facility] [address] [address] [address] Adrian Becker Neutrophils/100 WBC (Bld) 61.4 % Normal 43.0-75.0 [facility] Comment on above: Performed By: #### C BC #### [facility] [address] [address] [address] Adrian Becker Platelet mean volume (Bld) [Entitic vol] 9.5 fL Normal 9.5-13.5 [facility] Comment on above: Performed By: #### C BC #### [facility] [address] [place] [address] Dr. Adrian Becker PLT 323 103/ul Normal 150-450 [facility] Comment on above: Performed By: #### C BC #### [facility] [address] [address] [address] Adrian Becker RBC 3.73 106/ul Critically low 4.20-5.40 [facility] Comment on above: Performed By: #### C BC #### [facility] [address] [address] [address] Adrian Becker WBC 6.2 103/ul Normal 4.0-11.0 [facility] Comment on above: Performed By: #### C BC #### [facility] [address] [place] [address] Dr. Adrian Becker PROF 14(COMP METB)on 022 Albumin [Mass/Vol] 3.6 g/dL Normal 3.4-5.0 [facility] Comment on above: Performed By: #### T SASHA, CMP #### [facility] [address] [place] [address] Dr. Adrian Becker Albumin/Globulin [Mass ratio] 0.9 {ratio} Normal [facility] Comment on above: Performed By: #### T SASHA, CMP #### [facility] [address] [place] [address] Dr. Adrian Becker ALP [Catalytic activity/Vol] 52 U/L Normal 46-116 [facility] Comment on above: Performed By: #### T SASHA, CMP #### [facility] [address] [place] [address] Dr. Adrian Becker ALT [Catalytic activity/Vol] 20 U/L Normal 14-59 [facility] Comment on above: Performed By: #### T SASHA, CMP #### [facility] [address] [address] [address] Adrian Becker Anion gap [Moles/Vol] 11.2 mmol/L Normal [facility] Comment on above: Performed By: #### T SASHA, CMP #### [facility] [address] [place] [address] Dr. Adrian Becker AST [Catalytic activity/Vol] 22 U/L Normal 15-37 [facility] Comment on above: Performed By: #### T SASHA, CMP #### [facility] [address] [place] [address] Dr. Adrian Becker Bilirubin [Mass/Vol] 0.4 mg/dL Normal 0.2-1.0 [facility] Comment on above: Performed By: #### T SASHA, CMP #### [facility] [address] [place] [address] Dr. Adrian Becker Calcium [Mass/Vol] 9.1 mg/dL Normal 8.5-10.1 [facility] Comment on above: Performed By: #### T SASHA, CMP #### [facility] [address] [place] [address] Dr. Adrian Becker Chloride [Moles/Vol] 102 mmol/L Normal 98-107 [facility] Comment on above: Performed By: #### T SASHA, CMP #### [facility] [address] [place] [address] Dr. Adrian Becker CO2 [Moles/Vol] 27.5 mmol/L Normal 21.0-32.0 [facility] Comment on above: Performed By: #### T SASHA, CMP #### [facility] [address] [place] [address] Dr. Adrian Becker Creatinine [Mass/Vol] 1.38 mg/dL Critically high 0.55-1.02 [facility] Comment on above: Performed By: #### T SH, CMP #### [facility] [address] [address] [address] Adrian Becker EGFR-AF CZECH 45 mL/min/1.73m2 Critically low >=60 [facility] Comment on above: Performed By: #### T SH, CMP #### [facility] [address] [address] [address] Adrian Becker EGFR-NON AF CZECH 37 mL/min/1.73m2 Critically low >=60 [facility] Comment on above: Performed By: #### T SASHA, CMP #### [facility] [address] [place] [address] Dr. Adrian Becker Globulin (S) [Mass/Vol] 3.8 g/dL Normal [facility] Comment on above: Performed By: #### T SASHA, CMP #### [facility] [address] [place] [address] Dr. Adrian Becker Glucose [Mass/Vol] 112 mg/dL Critically high 74-106 [facility] Comment on above: Performed By: #### T SASHA, CMP #### [facility] [address] [place] [address] Dr. Adrian Becker Potassium [Moles/Vol] 3.7 mmol/L Normal 3.5-5.1 [facility] Comment on above: Performed By: #### T SASHA, CMP #### [facility] [address] [place] [address] Dr. Adrian Becker Protein [Mass/Vol] 7.4 g/dL Normal 6.4-8.2 [facility] Comment on above: Performed By: #### T SH, CMP #### [facility] [address] [place] [address] Dr. Adrian Becker Sodium [Moles/Vol] 137 mmol/L Normal 136-145 [facility] Comment on above: Performed By: #### T SASHA, CMP #### [facility] [address] [address] [address] Adrian Becker Urea nitrogen [Mass/Vol] 20.0 mg/dL Critically high 7.0-18.0 [facility] Comment on above: Performed By: #### T SASHA, CMP #### [facility] [address] [address] [address] Adrian Becker Urea nitrogen/Creatinin e [Mass ratio] 14.5 mg/mg Normal [facility] Comment on above: Performed By: #### T SASHA, CMP #### [facility] [address] [address] [address] Adrian Becker TSHon 03-12-2022 TSH 2.459 uIU/mL Normal 0.358-3.740 [facility] Comment on above: Performed By: #### T SASHA, CMP #### [facility] [address] [address] [address] Adrian Becker CREATININE BLOODon Creatinine [Mass/Vol] 1.18 mg/dL Normal 0.60-1.[address] [facility] Comment on above: Performed By: #### 2 5656 #### [facility] [address] [facility] Creatinine [Mass/Vol] 45 ml/min/1.73sq m Abnormal >60 [facility] Comment on above: Result Comment: Calc ulation may not be valid for patients over 70 years Performed By: #### 2 5656 #### [facility] [address] [place] [address], [facility] Creatinine [Mass/Vol] 55 ml/min/1.73sq m Abnormal >60 [facility] Comment on above: Result Comment: Calc ulation may not be valid for patients over 70 years Performed By: #### 2 5656 #### [facility] [address] [place] [address], [facility] CTA HEART-STRUCTURE/ MORPHOL OGY/CONGENITAL HEART DISEASE WITH 3DPPon 12-18-2018 CTA HEART-STRUCTURE/ MORPHOLOGY/CONGENI TOMMY HEART DISEASE WITH 3DPP [facility] Department of Radiology [address] [place] [address] ======== Patient Name: ELIZABETH EUGENE : [...] for labs no pc medicare cpt code 05445 *mla Comments: Post-ASD closure, please assess for [...] enlargement. Electronically signed by:Hannah Fine. Transcribed by: [email or web address], User Resident: Electronically Signed by: HANNAH FINE @ 12/19/2018 09:[address] [facility] Comment on above: Order Comment: Post- ASD closure, please assess for residual defect, osmium secundum type atrial septal defect Vital Signs Date Time Vital Sign Value Performing Clinician Facility 07-10-2023 10:45-0500 Body height 151.13 cm Nay Akers Other [facility] Other 07-10-2023 10:45-0500 Body mass index (BMI) [Ratio] 28.95 kg/m2 Nay Akers Other [facility] Other 07-10-2023 10:45-0500 Body temperature 98.5 [degF] Nay Akers Other [facility] Other 07-10-2023 10:45-0500 Body weight 66.13 kg Nay Akers Other [facility] Other 07-10-2023 10:45-0500 Diastolic blood pressure 84 mm[Hg] Nay Akers Other [facility] Other 07-10-2023 10:45-0500 Respiratory rate 18 /min Nay Akers Other [facility] Other 07-10-2023 10:45-0500 SaO2% (BldA) [Mass fraction] 100 % Nay Akers Other [facility] Other 07-10-2023 10:45-0500 Systolic blood pressure 124 mm[Hg] Nay Akers Other [facility] Other Encounters Encounter Date Encounter Type Care Provider Facility Start: 09-08-2023 End: [facility]: 07-23-2023 End: 07-23-[address] [facility] Start: 07-10-2023 End: 07-10-2023 ambulatory Nay Akers Other [facility] Other Start: 07-10-2023 Office outpatient vi sit 15 minutes Nay Akers [facility] Start: 01-21-2023 End: 01-21-2023 ambulatory [facility] Start: 11-04-2022 End: 12-04-[address] CHRISTIAN AUSTIN Facility:[facility] Start: 10-07-2022 End: 11-01-[address] CHRISTIAN AUSTIN Facility:[facility] Start: 09-04-2022 End: 10-04-[address] CHRISTIAN AUSTIN Facility:[facility] Start: 08-14-2022 End: 08-15-2022 ambulatory ROSA MARIA DAILEY Facility:[facility] Start: 08-07-2022 End: 09-04-[address] HCRISTIAN AUSTIN Facility:[facility] Start: 07-29-2022 End: 07-30-[address] CHRISTIAN AUSTIN Facility:[facility] Start: 07-08-2022 End: 08-07-[address] CHRISTIAN AUSTIN Facility:[facility] Start: 06-06-2022 End: 07-07-[address] CHRISTIAN AUSTIN Facility:[facility] Start: 05-24-2022 End: 05-25-[address] CHRISTIAN AUSTIN Facility:[facility] Start: 05-21-2022 End: 05-22-[address] CHRISTIAN AUSTIN Facility:[facility] Start: 05-07-2022 End: 06-05-2022 ambulatory SHAIKH So PAREDES Facility:[facility] Start: 04-07-2022 End: 05-06-2022 ambulatory SHAIKH So PAREDES Facility:[facility] Start: 03-12-2022 End: 03-13-[address] CHRISTIAN AUSTIN Facility:[facility] Start: 03-07-2022 End: 04-06-2022 ambulatory SHAIKH So PAREDES Facility:[facility] Start: 03-06-2022 Adult health examination Nay Akers Other [facility] Other Start: 03-01-2022 Problem, abnormal examination Nay Akers Other [facility] Other Start: 02-04-2022 End: 03-06-2022 ambulatory SHAIKH So PAREDES Facility:[facility] Start: 01-04-2022 End: 02-01-2022 [facility] Facility:[facility] Procedures Date Procedure Procedure Detail Performing Clinician Start: 08-14-2016 Screening mammography Nilda Akers Other Start: 04-26-2014 General examination of patient Nay Akers Other Screening for malign ant neoplasm of breast Nay Akers Other Payers Date Payer Category Payer Medicare [id number] 1945 Unknown [id number] 2.16.84 0.1.682255.3.579.2.593 1945 Unknown [id number] 2.16.84 0.1.781199.3.579.2.593 1945 Unknown [id number] 2.16.84 0.1.922456.3.579.2.593 1945 Unknown [id number] 2.16.84 0.1.224039.3.579.2.593 1945 Unknown [id number] 2.16.84 0.1.136606.3.579.2.593 1945 Unknown [id number] 2.16.84 0.1.378863.3.579.2.593 1945 Unknown [id number] 2.16.84 0.1.699506.3.579.2.593 1945 Unknown [id number] 2.16.84 0.1.281617.3.579.2.593 1945 Unknown [id number] 2.16.84 0.1.791463.3.579.2.593 1945 Unknown [id number] 2.16.84 0.1.090012.3.579.2.593 1945 Unknown [id number] 2.16.84 0.1.520611.3.579.2.593 1945 Unknown [id number] 2.16.84 0.1.002599.3.579.2.593 1945 Unknown [id number] 2.16.84 0.1.380177.3.579.2.593 1945 Unknown [id number] 2.16.84 0.1.850605.3.579.2.593 1945 Unknown [id number] 2.16.84 0.1.151223.3.579.2.593 1945 Unknown [id number] 2.16.84 0.1.797252.3.579.2.593 Social History Date Type Detail Facility Unknown if ever smoked [facility] [employer] Other Sex Assigned At Sex Assigned At Bir th [facility] Other Progress note 09-08-2023 Note Date & Type Note Facility 09-08-2023 Note ID Cardiology - [facility] Subjective Elizabeth Eugene is a 78 y.o. year old female patient being seen for follow up carotid duplex and labs performed on 07/30/2023. Amy Dailey increased her atorvastatin to 80 mg daily. Patient states she is tolerating higher dose so far. She denies chest pain, palpitations, and bleeding on warfarin. Patient Active Problem List Diagnosis Arthritis Atrial [...] use: Yes Comment: occasional Drug use: Never HPI Elizabeth is seen in follow-up. She is a 77-year-old woman with history of hypertension, atrial fibrillation, fenestrated ASD and PFO with cueh-nm-nsgbr shunting and enlarged right atrium and ventricle. [...] with filling of the distal vessel via jwnu-au-rthev collaterals and no significant disease in the left coronary system by cardiac catheterization in May 2018. She has moderate bilateral carotid artery stenosis by prior ultrasound. Most recent duplex carotid ultrasound July 2023 suggested possible severe stenosis of the right internal carotid artery. Atorvastatin was increased to 80 mg daily. Today she is seen in follow-up. She reports that she has been doing well. she denies chest pain, shortness of breath, palpitations, dizziness, syncope and leg edema. she has good exercise tolerance. There is no claudication. She has no stroke symptoms. Review of Systems Constitutional: Positive for malaise/fatigue. Cardiovascular: Negative for chest pain and dyspnea on exertion. Respiratory: Positive for cough. Musculoskeletal: Positive for back pain. Neurological: Positive for light-headedness. All other systems reviewed and are negative. Objective Visit Vitals BP 132/70 (BP Location: Left arm, Patient Position: Sitting) Pulse 56 Ht 1.499 m (4' 11 ) Wt 65.8 kg (145 lb) SpO2 99% BMI 29.29 kg/m??? Smoking Status Never BSA 1.66 m??? Physical Exam Constitutional: Appearance: She is [...] the morning., Disp: 90 tablet, Rfl: 3 amLODIPine (Norvasc) 5 mg tablet, Take 1 tablet (5 mg) by mouth in the morning., Disp: 90 tablet, Rfl: 3 aspirin 81 mg EC tablet, Take 1 tablet every day by oral route., Disp: , Rfl: atorvastatin (Lipitor) 80 mg tablet, Take 1 tablet (80 mg) by mouth in the morning., Disp: 90 tablet, Rfl: 3 metoprolol succinate XL (Toprol-XL) 50 mg 24 hr tablet, Take 1 tablet (50 mg) by mouth in the morning and at bedtime., Disp: 180 tablet, Rfl: 3 warfarin (Coumadin) 2 mg tablet, TAKE DIRECTED PER [facility] CLINIC, Disp: , Rfl: lisinopril 10 mg tablet, Take 1 tablet (10 mg) by mouth in the morning., Disp: 90 tablet, Rfl: 3 Recent Labs No visits with results within 6 Month(s) from this visit. Latest known visit with results is: [facility] Encounter on 12/18/2018 Component Date Value Creatinine 12/18/2018 1.18 eGFR - Non- (more content not included)... [facility] Progress note 07-23-2023 Note Date & Type Note Facility 07-23-2023 Note Hypertension is well controlled B/p 110/62 Continue norvasc, lisinopril/ hydrochlorothiazide and toprol Check BMP [facility] Progress note 07-23-2023 Note Date & Type Note Facility 07-23-2023 Note Coronary artery dise ase is stable Continue GDMT- ASA, lipitor, toprol, and lisinopril continue risk factor modifications- heart healthy diet, regular exercise as tolerated and continue all medications. [facility] Progress note 07-23-2023 Note Date & Type Note Facility 07-23-2023 Note Continue ASA and lip itor Carotid US to evaluate degree of stenosis. Script for BMP and Lipid profile [facility] Progress note 07-23-2023 Note Date & Type Note Facility 07-23-2023 Note No concerning sympto ms today, reviewed previous echocardiogram with noted small leak and pt voiced she already knew from D/W Dr Marin last year. [facility] Progress note 07-23-2023 Note Date & Type Note Facility 07-23-2023 Note [id number]= 5 Age, Female, HTN, CAD Remains on amiodarone, and toprol for rate and rhythm control. Warfarin for anticoagulation- denied bleeding tendencies. Recent LFT, Thyroid function, CXR and PFT reviewed with pt- no acute concerns. D/W pt she will need to have annual LFT, Thyroid function, CXR, PFT and eye exam and she voiced understanding. [facility] Progress note 07-23-2023 Note Date & Type Note Facility 07-23-2023 Note [facility] PROGR ESS NOTE HPI: Elizabeth Eugene is a 78 y.o. female here for routine 6 month F/U HPI Pleasant 78 yo female presents today for known h/o hypertension, atrial fibrillation, fenestrated ASD and PFO with alzh-ns-cuool shunting and enlarged right atrium and ventricle. [...] with filling of the distal vessel via wuyl-pe-lnwfd collaterals and no significant disease in the [...] atrial fibrillation, fenestrated ASD and PFO with hhzb-xl-iraog shunting and enlarged right atrium and ventricle. [...] with filling of the distal vessel via kewu-yt-urgai collaterals and no significant disease in the [...] lipids stable Last (more content not included)... [facility] Evaluation note 07-10-2023 Note Date & Type [...] understanding and is agreeable to treatment plan. [facility] Other Progress note 01-21-2023 Note Date & Type Note Facility 01-21-2023 Note ID Cardiology - [facility] Subjective Elizabeth Eugene is a [...] use: Yes Comment: occasional Drug use: Never HPI Elizabeth is seen in follow-up. She is a 77-year-old woman with history of hypertension, atrial fibrillation, fenestrated ASD and PFO with nmth-et-oieux shunting and enlarged right atrium and ventricle. [...] with filling of the distal vessel via lmme-xb-lfhag collaterals and no significant disease in the [...] size. Interatrial septal (more content not included)... [facility] History general Narrative - Reported Note Date [...] biopsy 12/10 Repair of ASD 06/2018 - [facility], Problem Status : Active, [employer] Other Summary Purpose Family History No Family History Records FoundNo Family History Records FoundNo Family History Records Found Advance Directives No Advanced Directives Records FoundNo Advanced Directives Records FoundNo Advanced Directives Records Found Additional Source Comments INFORMATION SOURCE (unrecogn ized section and content) DATE CREATED AUTHOR 07/29/2019 [facility] DATE CREATED AUTHOR AUTHOR'S ORGANIZ ATION 12/13/2022 [facility] DATE CREATED AUTHOR AUTHOR'S ORGANIZ ATION 09/08/2023 [facility] REASON FOR VISIT (unrecogniz ed section and [...] BE BASED ON THE PRIMARY CLINICAL RECORDS. [employer] [facility]. provides no warranty or guarantee of the accuracy or completeness of information in this document.
[2023-10-06 09:30] LABS: Chol HDL Ratio 2.2; Cholesterol 155 mg/dL (<=200); HDL Cholesterol 69 mg/dL (40-60); Triglycerides 78 mg/dL (<=150); VLDL CHOLESTEROL 15.6 mg/dL
== END 2023-10-06 08:41 | disposition home or self-care (01) ==
LOC: LAB 08:41
PROVIDERS: PCP Family Medicine; Visit Provider Nurse Practitioner
DX: I25.10 Atherosclerotic heart disease of native coronary artery without angina pectoris (principal); E78.5 Hyperlipidemia, unspecified; I65.23 Occlusion and stenosis of bilateral carotid arteries
CPT/HCPCS: 36415; 80061

== ENCOUNTER 2023-10-06 08:42 | Outpatient (OUT) | payer MEDICARE, SELFPAY ==
--- OUTSIDE RECORDS SUMMARY | 2023-10-06 09:01 | XMS_ITS | CCD ---
Author Organization [facility] Care Team Providers Care [employer] Instructor Name Role Phone DR CHRISTIAN AUSTIN Primary [...] Unavailable FAWWAD, KELLER H Admitting Unavailable FAWWAD, EKLLER H Attending Unavailable FAWWAD, KELLER H Admitting [...] or physicia Propensity to adverse reactions Comment:Done [facility] Other (1 source) Allergies Reconciled Propensity to adverse reactions Unknown [facility] Other Medications Current Medications Medication Drug Class(es) Dates Sig (Normalized) Sig (Original) alendronic acid 70 mg oral tablet (1 source) Bisphosphonate Start: 03-06-2022 take 1 tablet by mouth every week Fosamax 70MG Fosamax 70MG, 1 (one) Tablet weekly # 12, 03/06/2022, Ref. x3. Active Oral weekly for 90 *Pick strength-form from [employer] for eRX* Feb, Active amiodarone hydrochloride 100 mg oral tablet (1 source) Antiarrhythmic Start: 03-01-2022 take 100 mg by mouth once daily Amiodarone HCl 100MG Amiodarone HCl( 100MG Oral daily ) Active -Hx Entry Oral daily for 0 *Pick strength-form from [employer] for eRX* Feb, Active aspirin 81 mg [...] Oral daily for 0 *Pick strength-form from [employer] for eRX* Aug, Active simvastatin 40 mg oral tablet (1 source) HMG-CoA Reductase Inhibitor Start: 03-01-2022 Simvastatin 40MG Simvastatin( 40MG Oral ) Active -Hx Entry Oral for 0 *Pick strength-form from [employer] for eRX* Feb, Active warfarin sodium 5 mg oral tablet (1 source) Vitamin K Antagonist Start: 03-01-2022 Warfarin Sodium 5MG Warfarin Sodium( 5MG Oral ) Active -Hx Entry Oral for 0 *Pick strength-form from [employer] for eRX* Feb, Active Problems Active Problems [...] disease (2 sources) Atherosclerotic heart disease of [place] coronary artery without angina pectoris; Translations: [Atherosclerotic heart disease of [place] coronary artery without angina pectoris] Onset: 03-14-2022 [...] Onset: 11-02-2022 Episodic Other aftercare (1 source) 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; Translations: [CUSTODIAL CURRNT USE ANTICOAGULANTS] Onset: 12-04-2022 Episodic Other [...] 04-03-2018 Episodic Other aftercare (4 sources) Other shelter (current) drug therapy; Translations: [OTH CUSTODIAL CURRENT DRUG THERAPY] Onset: 07-29-2022 Episodic Other [...] Range Facility Office Visiton 09-08-2023 Follow-up visit [id number] Estephanie Eugene ra 1945 F Date Provider Department Center 09/08/2023 Alexandro-CLAIRE MARIN GOSIA [facility] Family History Problem Relation Age of Onset Hypertension Mother Stroke Mother Atrial fibrillation Sister Lung cancer Brother Family Status - Relation Status Age at Mother Sister Brother Level of Service:38914 [place] OFFICE/OUTPATIENT ESTABLISHED MOD MDM 30 MIN Normal [facility] 36on 08-06-2023 36 Patient had carotid duplex recently. Amy wanted your opinion on it. 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 Amy increased her atorvastatin to 80mg after recent lipid. Please advise. Thanks. Normal [facility] Office Visiton 07-23-2023 Follow-up visit [id number] Estephanie Eugene ra Nilda 1945 Date Provider Department Center 07/23/2023 JADONROSA MARIA SHARDA [facility] Family History Problem Relation Age of Onset Hypertension Mother Stroke Mother Atrial fibrillation Sister Lung cancer Brother Family Status - Relation Status Age at Mother Sister Brother Level of Service:91045 [place] OFFICE/OUTPATIENT ESTABLISHED MOD MDM 30 MIN Reason for Visit and Comments: Follow-up [933634] Normal [facility] Office Visiton 01-21-2023 Follow-up visit [id number] Estephanie Eugene ra Munguia 1945 Date Provider Department Center 01/21/2023 AlexandroJOSÉ MIGUELCLAIRE GAN SHARDA [facility] Family History Problem Relation Age of Onset Hypertension Mother Stroke Mother Atrial fibrillation Sister Lung cancer Brother Family Status - Relation Status Age at Mother Sister Brother Level of Service:61876 [place] OFFICE/OUTPATIENT ESTABLISHED MOD MDM 30-39 MIN Reason for Visit and Comments: Follow-up [738075] - 6 month w echo Normal [facility] ECHOCARDIO M/2D COMPLETEon 0 08-14-2022 ECHOCARDIO M/2D COMPLETE Patient: ELIZABETH EUGENE Exam Date: 08/14/2022 : 1945 Gender:F Ordering : ROSA MARIA DAILEY Admission #: [id number] Family : DR CHRISTIAN AUSTIN M.D. Order #: [id number] CLICK HERE TO VIEW EXAM ECHOCARDIOGRAM REPORT [...] across the septum with a small residual mojj-vh-[id number] shunt by color Doppler. 6. Mild mitral [...] Marin M.D. on 08/15/2022 at 18:36 Normal [facility] FREE T4on 07-29-2022 Free T4 [Mass/Vol] 1.43 ng/dL Normal 0.76-1.[address] [facility] Comment on above: Performed By: #### F T4 #### [facility] [address] [place] [address] Dr. Adrian Becker LIVER PROFILEon 07-29-2022 Albumin [Mass/Vol] 3.8 g/dL Normal 3.4-5.[address] [facility] Comment on above: Performed By: #### T SH, LIVER #### [facility] [address] [place] [address] Dr. Adrian Becker Albumin/Globulin [Mass ratio] 1.0 {ratio} Normal [facility] Comment on above: Performed By: #### T SH, LIVER #### [facility] [address] [place] [address] Dr. Adrian Becker ALP [Catalytic activity/Vol] 66 U/L Normal 46-116 [facility] Comment on above: Performed By: #### T SH, LIVER #### [facility] [address] [place] [address] Dr. Adrian Becker ALT [Catalytic activity/Vol] 20 U/L Normal 14-59 [facility] Comment on above: Performed By: #### T SH, LIVER #### [facility] [address] [place] [address] Dr. Adrian Becker AST [Catalytic activity/Vol] 25 U/L Normal 15-37 [facility] Comment on above: Performed By: #### T SH, LIVER #### [facility] [address] [place] [address] Dr. Adrian Becker BILI, CONJUGATED 0.1 mg/dL Normal 0.0-0.2 [facility] Comment on above: Performed By: #### T SH, LIVER #### [facility] [address] [place] [address] Dr. Adrian Becker Bilirubin [Mass/Vol] 0.3 mg/dL Normal 0.2-1.0 [facility] Comment on above: Performed By: #### T SH, LIVER #### [facility] [address] [place] [address] Dr. Adrian Becker Globulin (S) [Mass/Vol] 3.9 g/dL Normal [facility] Comment on above: Performed By: #### T SH, LIVER #### [facility] [address] [place] [address] Dr. Adrian Becker Protein [Mass/Vol] 7.7 g/dL Normal 6.4-8.[address] [facility] Comment on above: Performed By: #### T SH, LIVER #### [facility] [address] [place] [address] Dr. Adrian Becker TSHon 07-29-2022 TSH 2.876 uIU/mL Normal 0.358-3.740 [facility] Comment on above: Performed By: #### T SH, LIVER #### [facility] [address] [place] [address] Dr. Adrian Becker XR CHEST 2 Von [...] by: JEFF CARDOZA Date: 2022-07-29 13:46 Normal [facility] XR DEXA BONE DENSITYon 05-24 XR DEXA [...] by: JANET BORDEN Date: 2022-05-24 15:40 Normal [facility] MAMM SCREEN 3D ENRRIQUE CADon 05-21-2022 MG MAMM SCREEN 3D ENRRIQUE CAD Patient: ELIZABETH EUGENE Exam Date: 05/21/2022 : 1945 Gender:F Ordering : DR CHRISTIAN AUSTIN M.D. Admission #: [id number] Family : Order #: [id number] CLICK HERE TO VIEW EXAM RADIOLOGY REPORT PROCEDURE: MAMMOGRAM SCREENING 3D BILATERAL CAD COMPARISON: MG MAMM SCREEN ENRRIQUE W CAD, 05/11/2020. INDICATIONS: Screening mammography Calculator Name NCI Breast Cancer Risk Assessment Tool 5 Year Breast Cancer Risk 1.50% Lifetime Breast Cancer Risk 3.30% Personal Breast Cancer No Personal Ovarian Cancer No Treatments None Family Cancers None LOCATION: [facility] BREAST COMPOSITION: Heterogeneously dense,which may obscure small [...] Borden MD on 05/21/2022 at 13:48 Normal [facility] CBC AUTO DIFFon 03-12-2022 BASO # 0.1 103/ul Normal 0.0-0.1 [facility] Comment on above: Performed By: #### C BC #### [facility] [address] [address] [address] Adrian Becker Basophils/100 WBC (Bld) 1.1 % Normal 0.2-2.0 [facility] Comment on above: Performed By: #### C BC #### [facility] [address] [place] [address] Dr. Adrian Becker EO # 0.1 103/ul Normal 0.0-0.7 [facility] Comment on above: Performed By: #### C BC #### [facility] [address] [place] [address] Dr. Adrian Becker Eosinophils/100 WBC (Bld) 2.1 % Normal 0.9-7.0 [facility] Comment on above: Performed By: #### C BC #### [facility] [address] [place] [address] Dr. Adrian Becker Erythrocyte distribution width (RBC) [Ratio] 14.1 % Normal 11.0-15.0 [facility] Comment on above: Performed By: #### C BC #### [facility] [address] [place] [address] Dr. Adrian Becker Hematocrit (Bld) [Volume fraction] 33.5 % Critically low 36.0-48.0 [facility] Comment on above: Performed By: #### C BC #### [facility] [address] [place] [address] Dr. Adrian Becker Hemoglobin (Bld) [Mass/Vol] 11.1 g/dL Critically low 12.0-16.0 [facility] Comment on above: Performed By: #### C BC #### [facility] [address] [place] [address] Dr. Adrian Becker IG # 0.02 10e3/ul Normal 0.00-0.03 [facility] Comment on above: Performed By: #### C BC #### [facility] [address] [place] [address] Dr. Adrian Becker IG % 0.3 % Normal 0.0-0.5 [facility] Comment on above: Performed By: #### C BC #### [facility] [address] [address] [address] Adrian Becker LYMPH # 1.8 103/ul Normal 1.2-3.8 [facility] Comment on above: Performed By: #### C BC #### [facility] [address] [place] [address] Dr. Adrian Becker Lymphocytes/100 WBC (Bld) 29.0 % Normal 20.5-60.0 [facility] Comment on above: Performed By: #### C BC #### [facility] [address] [place] [address] Dr. Adrian Becker MANUAL DIFF REQ NO Normal [facility] Comment on above: Performed By: #### C BC #### [facility] [address] [place] [address] Dr. Adrian Becker MCH (RBC) [Entitic mass] 29.8 pg Normal 26.7-34.0 [facility] Comment on above: Performed By: #### C BC #### [facility] [address] [place] [address] Dr. Adrian Becker MCHC (RBC) [Mass/Vol] 33.1 g/dL Normal 29.9-35.2 [facility] Comment on above: Performed By: #### C BC #### [facility] [address] [place] [address] Dr. Adrian Becker MCV (RBC) [Entitic vol] 89.8 fL Normal 81.0-99.0 [facility] Comment on above: Performed By: #### C BC #### [facility] [address] [place] [address] Dr. Adrian Becker MONO # 0.4 103/ul Normal 0.3-0.8 [facility] Comment on above: Performed By: #### C BC #### [facility] [address] [place] [address] Dr. Adrian Becker Monocytes/100 WBC (Bld) 6.1 % Normal 1.7-12.0 [facility] Comment on above: Performed By: #### C BC #### [facility] [address] [place] [address] Dr. Adrian Becker NEUT # 3.8 103/ul Normal 1.4-6.5 [facility] Comment on above: Performed By: #### C BC #### [facility] [address] [address] [address] Adrian Becker Neutrophils/100 WBC (Bld) 61.4 % Normal 43.0-75.0 [facility] Comment on above: Performed By: #### C BC #### [facility] [address] [address] [address] Adrian Becker Platelet mean volume (Bld) [Entitic vol] 9.5 fL Normal 9.5-13.5 [facility] Comment on above: Performed By: #### C BC #### [facility] [address] [place] [address] Dr. Adrian Becker PLT 323 103/ul Normal 150-450 [facility] Comment on above: Performed By: #### C BC #### [facility] [address] [address] [address] Adrian Becker RBC 3.73 106/ul Critically low 4.20-5.40 [facility] Comment on above: Performed By: #### C BC #### [facility] [address] [address] [address] Adrian Becker WBC 6.2 103/ul Normal 4.0-11.0 [facility] Comment on above: Performed By: #### C BC #### [facility] [address] [place] [address] Dr. Adrian Becker PROF 14(COMP METB)on 022 Albumin [Mass/Vol] 3.6 g/dL Normal 3.4-5.[address] [facility] Comment on above: Performed By: #### T SASHA, CMP #### [facility] [address] [place] [address] Dr. Adrian Becker Albumin/Globulin [Mass ratio] 0.9 {ratio} Normal [facility] Comment on above: Performed By: #### T SASHA, CMP #### [facility] [address] [place] [address] Dr. Adrian Becker ALP [Catalytic activity/Vol] 52 U/L Normal 46-116 [facility] Comment on above: Performed By: #### T SASHA, CMP #### [facility] [address] [place] [address] Dr. Adrian Becker ALT [Catalytic activity/Vol] 20 U/L Normal 14-59 [facility] Comment on above: Performed By: #### T SASHA, CMP #### [facility] [address] [address] [address] Adrian Becker Anion gap [Moles/Vol] 11.2 mmol/L Normal [facility] Comment on above: Performed By: #### T SASHA, CMP #### [facility] [address] [place] [address] Dr. Adrian Becker AST [Catalytic activity/Vol] 22 U/L Normal 15-37 [facility] Comment on above: Performed By: #### T SASHA, CMP #### [facility] [address] [place] [address] Dr. Adrian Becker Bilirubin [Mass/Vol] 0.4 mg/dL Normal 0.2-1.0 [facility] Comment on above: Performed By: #### T SASHA, CMP #### [facility] [address] [place] [address] Dr. Adrian Becker Calcium [Mass/Vol] 9.1 mg/dL Normal 8.5-10.[address] [facility] Comment on above: Performed By: #### T SASHA, CMP #### [facility] [address] [place] [address] Dr. Adrian Becker Chloride [Moles/Vol] 102 mmol/L Normal 98-107 [facility] Comment on above: Performed By: #### T SASHA, CMP #### [facility] [address] [place] [address] Dr. Adrian Becker CO2 [Moles/Vol] 27.5 mmol/L Normal 21.0-32.0 [facility] Comment on above: Performed By: #### T SASHA, CMP #### [facility] [address] [place] [address] Dr. Adrian Becker Creatinine [Mass/Vol] 1.38 mg/dL Critically high 0.55-1.02 [facility] Comment on above: Performed By: #### T SH, CMP #### [facility] [address] [address] [address] Adrian Becker EGFR-AF HAITIAN 45 mL/min/1.73m2 Critically low >=60 [facility] Comment on above: Performed By: #### T SH, CMP #### [facility] [address] [address] [address] Adrian Becker EGFR-NON AF HAITIAN 37 mL/min/1.73m2 Critically low >=60 [facility] Comment on above: Performed By: #### T SASHA, CMP #### [facility] [address] [place] [address] Dr. Adrian Becker Globulin (S) [Mass/Vol] 3.8 g/dL Normal [facility] Comment on above: Performed By: #### T SASHA, CMP #### [facility] [address] [place] [address] Dr. Adrian Becker Glucose [Mass/Vol] 112 mg/dL Critically high 74-106 [facility] Comment on above: Performed By: #### T SASHA, CMP #### [facility] [address] [place] [address] Dr. Adrian Becker Potassium [Moles/Vol] 3.7 mmol/L Normal 3.5-5.1 [facility] Comment on above: Performed By: #### T SASHA, CMP #### [facility] [address] [place] [address] Dr. Adrian Becker Protein [Mass/Vol] 7.4 g/dL Normal 6.4-8.2 [facility] Comment on above: Performed By: #### T SH, CMP #### [facility] [address] [place] [address] Dr. Adrian Becker Sodium [Moles/Vol] 137 mmol/L Normal 136-[address] [facility] Comment on above: Performed By: #### T SASHA, CMP #### [facility] [address] [address] [address] Adrian Becker Urea nitrogen [Mass/Vol] 20.0 mg/dL Critically high 7.0-18.0 [facility] Comment on above: Performed By: #### T SASHA, CMP #### [facility] [address] [address] [address] Adrian Becker Urea nitrogen/Creatinin e [Mass ratio] 14.5 mg/mg Normal [facility] Comment on above: Performed By: #### T SASHA, CMP #### [facility] [address] [address] [address] Adrian Becker TSHon 03-12-2022 TSH 2.459 uIU/mL Normal 0.358-3.740 [facility] Comment on above: Performed By: #### T SASHA, CMP #### [facility] [address] [address] [address] Adrian Becker CREATININE BLOODon Creatinine [Mass/Vol] 1.18 mg/dL Normal 0.60-1.20 [facility] Comment on above: Performed By: #### 2 5656 #### [facility] [address] Creatinine [Mass/Vol] 45 ml/min/1.73sq m Abnormal >60 [facility] Comment on above: Result Comment: Calc ulation may not be valid for patients over 70 years Performed By: #### 2 5656 #### [facility] [address] [place] [address], [facility] Creatinine [Mass/Vol] 55 ml/min/1.73sq m Abnormal >60 [facility] Comment on above: Result Comment: Calc ulation may not be valid for patients over 70 years Performed By: #### 2 5656 #### [facility] [address] [place] [address], [facility] CTA HEART-STRUCTURE/ MORPHOL OGY/CONGENITAL HEART DISEASE WITH 3DPPon 12-18-2018 CTA HEART-STRUCTURE/ MORPHOLOGY/CONGENI TOMMY HEART DISEASE WITH 3DPP [facility] Department of Radiology [address] [place] [address] ======== Patient Name: ELIZABETH EUGENE [...] for labs no pc medicare cpt code 48933 *mla Comments: Post-ASD closure, please assess for [...] enlargement. Electronically signed by:Hannah Fine. Transcribed by: [email or web address], User Resident: Electronically Signed by: HANNAH FINE @ 12/19/2018 09:20 AM Normal [facility] Comment on above: Order Comment: Post- ASD closure, please assess for residual defect, osmium secundum type atrial septal defect Vital Signs Date Time Vital Sign Value Performing Clinician Facility 07-10-2023 10:45-0500 Body height 151.13 cm Nay Akers Other [facility] Other 07-10-2023 10:45-0500 Body mass index (BMI) [Ratio] 28.95 kg/m2 Nay Akers Other [facility] Other 07-10-2023 10:45-0500 Body temperature 98.5 [degF] Nay Akers Other [facility] Other 07-10-2023 10:45-0500 Body weight 66.13 kg Nay Akers Other [facility] Other 07-10-2023 10:45-0500 Diastolic blood pressure 84 mm[Hg] Nay Akers Other [facility] Other 07-10-2023 10:45-0500 Respiratory rate 18 /min Nay Akers Other [facility] Other 07-10-2023 10:45-0500 SaO2% (BldA) [Mass fraction] 100 % Nay Akers Other [facility] Other 07-10-2023 10:45-0500 Systolic blood pressure 124 mm[Hg] Nay Akers Other [facility] Other Encounters Encounter Date Encounter Type Care Provider Facility Start: 09-08-2023 End: 09-08-2023 ambulatory [facility]IRE [facility] Start: 07-23-2023 End: 07-23-2023 ambulatory ROSA MARIA DAILEY [facility] Start: 07-10-2023 End: 07-10-2023 ambulatory Nay Akers Other [facility] Other Start: 07-10-2023 Office outpatient vi sit 15 minutes Nay Akers [facility] Start: 01-21-2023 End: 01-21-2023 ambulatory [facility] Start: 11-04-2022 End: 12-04-[address] CHRISTIAN [...] 03-06-2022 Adult health examination Nay Akers Other [facility] Other Start: 03-01-2022 Problem, abnormal examination Nay Akers Other [facility] Other Start: 02-04-2022 End: 03-06-2022 ambulatory SHAIKH So PAREDES Facility:[facility] Start: 01-04-2022 End: 02-01-2022 [facility] Facility:[facility] Procedures Date Procedure Procedure Detail Performing Clinician Start: 08-14-2016 Screening mammography Nilda Akers Other Start: 04-26-2014 General examination of patient Nay Akers Other Screening for malign ant neoplasm of breast Nay Akers Other Payers Date Payer Category Payer Medicare [id number] 1945 Unknown [id number] 2.16.84 0.1.708972.3.579.2.593 1945 Unknown [id number] 2.16.84 0.1.344052.3.579.2.593 1945 Unknown [id number] 2.16.84 0.1.565061.3.579.2.593 1945 Unknown [id number] 2.16.84 0.1.620297.3.579.2.593 1945 Unknown [id number] 2.16.84 0.1.826518.3.579.2.593 1945 Unknown [id number] 2.16.84 0.1.810077.3.579.2.593 1945 Unknown [id number] 2.16.84 0.1.621937.3.579.2.593 1945 Unknown [id number] 2.16.84 0.1.678992.3.579.2.593 1945 Unknown [id number] 2.16.84 0.1.932778.3.579.2.593 1945 Unknown [id number] 2.16.84 0.1.956473.3.579.2.593 1945 Unknown [id number] 2.16.84 0.1.626564.3.579.2.593 1945 Unknown [id number] 2.16.84 0.1.147133.3.579.2.593 1945 Unknown [id number] 2.16.84 0.1.481368.3.579.2.593 1945 Unknown [id number] 2.16.84 0.1.806863.3.579.2.593 1945 Unknown [id number] 2.16.84 0.1.702187.3.579.2.593 1945 Unknown [id number] 2.16.84 0.1.946246.3.579.2.593 Social History Date Type Detail Facility Unknown if ever smoked [facility] Other Sex Assigned At Sex Assigned At Bir th [facility] Other Progress note 09-08-2023 Note Date & Type Note Facility 09-08-2023 Note [place] [facility] - [facility] Subjective Elizabeth Eugene is a 78 [...] atrial fibrillation, fenestrated ASD and PFO with yxnd-ut-idqek shunting and enlarged right atrium and ventricle. [...] with filling of the distal vessel via [id number] collaterals and no significant disease in the [...] eGFR - Non- (more content not included)... [facility] Progress note 07-23-2023 Note Date & Type Note Facility 07-23-2023 Note Hypertension is well controlled B/p 110/62 Continue norvasc, lisinopril/ hydrochlorothiazide and toprol Check BMP [facility] Progress note 07-23-2023 Note Date & Type Note Facility 07-23-2023 Note Coronary artery dise ase is stable Continue GDMT- ASA, lipitor, toprol, and lisinopril continue risk factor modifications- heart healthy diet, regular exercise as tolerated and continue all medications. [facility] Progress note 07-23-2023 Note Date & Type Note Facility 07-23-2023 Note Continue ASA and lip itor Carotid US to evaluate degree of stenosis. Script for BMP and Lipid profile [facility] Progress note 07-23-2023 Note Date & Type Note Facility 07-23-2023 Note No concerning sympto ms today, reviewed previous echocardiogram with noted small leak and pt voiced she already knew from D/W Dr Marin last year. [facility] Progress note 07-23-2023 Note Date & Type Note Facility 07-23-2023 Note [id number]= 5 Age, Female, HTN, CAD Remains on amiodarone, and toprol for rate and rhythm control. Warfarin for anticoagulation- denied bleeding tendencies. Recent LFT, Thyroid function, CXR and PFT reviewed with pt- no acute concerns. D/W pt she will need to have annual LFT, Thyroid function, CXR, PFT and eye exam and she voiced understanding. [facility] Progress note 07-23-2023 Note Date & Type Note Facility 07-23-2023 Note [facility] PROGR ESS NOTE HPI: Elizabeth Eugene is a 78 y.o. female here for routine 6 month F/U HPI Pleasant 78 yo female presents today for known h/o hypertension, atrial fibrillation, fenestrated ASD and PFO with mwwq-bi-ubyol shunting and enlarged right atrium and ventricle. [...] with filling of the distal vessel via lkux-sr-ntove collaterals and no significant disease in the [...] atrial fibrillation, fenestrated ASD and PFO with xiux-cp-peukk shunting and enlarged right atrium and ventricle. [...] with filling of the distal vessel via xrhu-kd-irpmw collaterals and no significant disease in the [...] lipids stable Last (more content not included)... [facility] Evaluation note 07-10-2023 Note Date & Type [...] understanding and is agreeable to treatment plan. [employer] Other Progress note 01-21-2023 Note Date & Type Note Facility 01-21-2023 Note [place] [facility] - [facility] Subjective Elizabeth Eugene is a 77 [...] atrial fibrillation, fenestrated ASD and PFO with crja-pu-qypta shunting and enlarged right atrium and ventricle. [...] with filling of the distal vessel via irgw-eq-iyfbx collaterals and no significant disease in the [...] size. Interatrial septal (more content not included)... [facility] History general Narrative - Reported Note Date & Type Note Facility History general Narrative - Reported Type Medical History Problem Title : comp liance with medical treatment, Problem Description : compliance with medical treatment, Problem Comment : Done, Problem Status : Active,, Medical History Problem Title : ulcio nary artery disease, hx of, Problem Description [...] biopsy 12/10 Repair of ASD 06/2018 - [facility], Problem Status : Active, [employer] Other Summary Purpose Family History No Family History Records FoundNo Family History Records FoundNo Family History Records Found Advance Directives No Advanced Directives Records FoundNo Advanced Directives Records FoundNo Advanced Directives Records Found Additional Source Comments INFORMATION SOURCE (unrecogn ized section and content) DATE CREATED AUTHOR 07/29/2019 [facility] DATE CREATED AUTHOR AUTHOR'S ORGANIZ ATION 12/13/2022 [facility] DATE CREATED AUTHOR AUTHOR'S ORGANIZ ATION 09/08/2023 [facility] REASON FOR VISIT (unrecogniz ed [...] BE BASED ON THE PRIMARY CLINICAL RECORDS. [facility]. provides no warranty or guarantee of the accuracy or completeness of information in this document.
[2023-10-06 09:24] LABS: Anion Gap 16.6; BUN Creatinine Ratio 13.7; Calcium 9.2 mg/dL (8.5-10.1); Carbon Dioxide 23.3 mmol/L (21.0-32.0); Chloride 105 mmol/L (98-107); Estimated GFR (African America 45 (>=60); Estimated GFR (Non-African Ame 37 (>=60); Glucose 102 mg/dL (74-106); Potassium 3.9 mmol/L (3.5-5.1); Sodium 141 mmol/L (136-145)
== END 2023-10-06 08:43 | disposition home or self-care (01) ==
LOC: LAB 08:42
PROVIDERS: PCP Family Medicine; Visit Provider Internal Medicine Interventional Cardiology
DX: I25.10 Atherosclerotic heart disease of native coronary artery without angina pectoris (principal); E78.5 Hyperlipidemia, unspecified; I65.23 Occlusion and stenosis of bilateral carotid arteries; I10 Essential (primary) hypertension
CPT/HCPCS: 36415; 80048; 80061

== ENCOUNTER 2023-11-05 04:43 | Outpatient (RCR) | payer MEDICARE, SELFPAY | END 2023-12-05 12:06 | disposition home or self-care (01) | LOC: MM 04:43 | PROVIDERS: PCP Family Medicine; Visit Provider Internal Medicine | DX: Z51.81 Encounter for therapeutic drug level monitoring (principal); Z79.01 Long term (current) use of anticoagulants; I48.91 Unspecified atrial fibrillation ==

== ENCOUNTER 2023-12-04 17:38 | Emergency (ER) | payer MEDICARE, SELFPAY ==
[2023-12-04 17:45] VITALS: BP 166/73; PULSE 63; TEMP 36.5; O2SAT 98; BMI 29.3
--- NOTE | 2023-12-04 17:48 | XR_ITS ---
The [address] [address] Patient Name: ELIZABETH ABBASI MRN: [id number] date: 1945 Sex: F Assigned Patient Location: ER Current Patient Location: Accession/Order Number: [id number] Exam Date: 12/04/2023 18:00 Report Date: 12/04/2023 19:00 At the request of: JOE DENSON Procedure: XR hand LT min 3V EXAM: XR hand LT min 3V HISTORY: Laceration COMPARISON: None. TECHNIQUE: 3 views of the left hand FINDINGS: There is no acute fracture or dislocation. Degenerative changes of first carpometacarpal, PIP and DIP joints are noted. No cortical erosion. No gas or radiopaque foreign body is noted within the soft tissue. XR/XR hand LT min 3V IMPRESSION: No radiographic evidence of acute processes Electronically authenticated by: PITA ALLEN Date: 12/04/2023 19:00
--- NOTE | 2023-12-04 17:49 | ED_ITS ---
HPI HPI - General Adult General Chief complaint: Wound/Laceration Stated complaint: cut hand-upper extremity injury Time Seen by Provider: 12/04/23 17:39 Source: patient Mode of arrival: walk-in Limitations: no limitations History of Present Illness HPI narrative: Patient is a 78-year-old female who presents to the emergency department for the evaluation of a laceration to the left palm. She is right-hand dominant and was using a paring knife when she accidentally stabbed herself through the palm of the left hand with the knife exiting the left lateral hand. Bleeding is well-controlled. She has an unknown tetanus status. No medications prior to arrival. Related Data Home Medications ?Medication ?Instructions ?Recorded ?Confirmed amiodarone 100 mg tablet 100 mg PO Q24H 12/04/23 12/04/23 amlodipine 10 mg tablet 10 mg PO QAM 12/04/23 12/04/23 aspirin 81 mg capsule 81 mg PO DAILY 12/04/23 12/04/23 atorvastatin 40 mg tablet 80 mg PO .qhs 12/04/23 12/04/23 metoprolol succinate 50 mg 50 mg PO Q12H 12/04/23 12/04/23 tablet,extended release 24 hr warfarin 2 mg tablet 4 mg PO .COMPLEX 12/04/23 12/04/23 Previous Rx's ?Medication ?Instructions ?Recorded cephalexin 500 mg capsule 500 mg PO Q8H 7 days #21 caps 12/04/23 Allergies Allergy/AdvReac Type Severity Reaction Status Date / Time No Known Drug Allergies Allergy Verified 12/04/23 17:45 Opioid HPI Opioid Management Most Recent Opioid Data: No Data to Display Review of Systems ROS Constitutional Denies: fever or chills Ears, nose, mouth, and throat Denies: throat pain or nasal congestion Gastrointestinal Denies: nausea or vomiting Musculoskeletal Denies: back pain, neck pain or extremity pain Integumentary/Breast Denies: rash, redness or skin tenderness Hematologic/Lymphatic Denies: easy bruising or easy bleeding Exam Narrative Exam Narrative: Gen.: Awake, alert, in no distress Head: Normocephalic, atraumatic ENT: Moist mucous membranes Respiratory: No respiratory distress Extremities: Moves extremities equally, Palm of the left hand over the fifth metacarpal with a 1.5 cm C-shaped laceration, minimal venous oozing and on the lateral aspect of the left hand adjacent to the fifth metacarpal, there is a 0.5 cm superficial laceration. Patient with normal flexion and extension of all fingers, no tendon deficit. Psych: Normal mood and affect Neuro: No focal neuro deficit Skin: Warm, dry, intact Constitutional Vital Signs, click to edit/add: Last Vital Signs Temp 97.7 F 12/04/23 17:45 Pulse 63 12/04/23 17:45 Resp 14 12/04/23 17:45 BP 166/73 H 12/04/23 17:45 Pulse Ox 98 12/04/23 17:45 O2 Del Method Room Air 12/04/23 17:45 Course Vital Signs Vital signs: Vital Signs Temperature 97.7 F 12/04/23 17:45 Pulse Rate 63 12/04/23 17:45 Respiratory Rate 14 12/04/23 17:45 Blood Pressure 166/73 H 12/04/23 17:45 Pulse Oximetry 98 12/04/23 17:45 Oxygen Delivery Method Room Air 12/04/23 17:45 Temperature 97.7 F 12/04/23 17:45 Pulse Rate 63 12/04/23 17:45 Respiratory Rate 14 12/04/23 17:45 Blood Pressure 166/73 H 12/04/23 17:45 Pulse Oximetry 98 12/04/23 17:45 Oxygen Delivery Method Room Air 12/04/23 17:45 Medical Decision Making MDM Narrative Medical decision making narrative: X-rays obtained, tetanus updated and laceration repaired without difficulty, please see procedure note for details. Sutures removed in 7 to 10 days with PCP. Return to the ER if symptoms change or worsen. Keflex given for home. Laceration repair: Done under sterile conditions. The use of Shur-Clens prep the area. Local injection with lidocaine 1% was used, approximately 5 cc. The wound was irrigated copiously with normal saline. The wound was explored there was no evidence of foreign material. The lacerations were approximated with 4-0 nylon. 3 simple interrupted sutures were placed in the palm laceration and 1 suture was placed in the lateral hand. Patient tolerated the procedure well. The patient was neurovascularly intact post. the patient had bacitracin applied to the laceration and a dry sterile dressing was place. The patient will need to follow-up in the next 7-10 days for removal Medical Records Medical records reviewed: Yes I reviewed the patient's medical records Imaging Data XR hand: Attestation: I have reviewed the pertinent imaging results. Discharge Plan Discharge Stand Alone Forms: Portal Instructions Chief Complaint: Wound/Laceration Clinical Impression: Laceration of left hand Patient Disposition: Home, Self-Care Time of Disposition Decision: 17:49 Condition: Good Prescriptions / Home Meds: New cephalexin 500 mg capsule 500 mg PO Q8H 7 Days Qty: 21 0RF No Action amiodarone 100 mg tablet 100 mg PO Q24H amlodipine 10 mg tablet 10 mg PO QAM atorvastatin 40 mg tablet 80 mg PO .qhs metoprolol succinate 50 mg tablet extended release 24 hr 50 mg PO Q12H warfarin 2 mg tablet 4 mg PO .COMPLEX Rx Instructions: 4 mg orally; 2 mg orally sat,sun, fri, fri, ; aspirin 81 mg capsule 81 mg PO DAILY Print Language: Portuguese Instructions: Laceration (ED) Additional Instructions: Sutures removed in 7-10 days with PCP Referrals: Shyla Brito MD [Primary Care Provider] - 1 week
[2023-12-04] MEDS: ADACEL DIPH,PERTUSS(ACELL),TET VAC/PF 0.5 ML ADULT SYRINGE IM (18:10)
[2023-12-04] MEDS: LIDOCAINE HCL 1% 100 MG/10 ML MDV INJ (18:10)
[2023-12-04] MEDS: BACITRACIN 0.9 GM PACKET 1 PACKET TOPICAL (18:13)
== END 2023-12-04 18:31 | disposition home or self-care (01) ==
PROVIDERS: Emergency Provider Emergency Medicine Emergency Medical Services; PCP Family Medicine
DX: S61.412A Laceration without foreign body of left hand, initial encounter (principal); Z23 Encounter for immunization; W26.0XXA Contact with knife, initial encounter
CPT/HCPCS: 12001; 73130; 90471; 90715; 99284

== ENCOUNTER 2023-12-08 03:36 | Outpatient (RCR) | payer MEDICARE, SELFPAY | END 2024-01-02 11:13 | disposition home or self-care (01) | LOC: MM 03:36 | PROVIDERS: PCP Family Medicine; Visit Provider Internal Medicine | DX: Z51.81 Encounter for therapeutic drug level monitoring (principal); Z79.01 Long term (current) use of anticoagulants; I48.91 Unspecified atrial fibrillation | CPT/HCPCS: 85610; G0463 ==

== ENCOUNTER 2024-01-05 00:17 | Outpatient (RCR) | payer MEDICARE, SELFPAY | END 2024-02-04 09:53 | disposition home or self-care (01) | LOC: MM 00:17 | PROVIDERS: PCP Family Medicine; Visit Provider Internal Medicine | DX: Z51.81 Encounter for therapeutic drug level monitoring (principal); Z79.01 Long term (current) use of anticoagulants; I48.91 Unspecified atrial fibrillation ==

== ENCOUNTER 2024-02-05 00:20 | Outpatient (RCR) | payer MEDICARE, SELFPAY | END 2024-03-05 09:52 | disposition home or self-care (01) | LOC: MM 00:20 | PROVIDERS: PCP Family Medicine; Visit Provider Internal Medicine | DX: Z51.81 Encounter for therapeutic drug level monitoring (principal); Z79.01 Long term (current) use of anticoagulants; I48.91 Unspecified atrial fibrillation | CPT/HCPCS: 85610; G0463 ==

== ENCOUNTER 2024-03-08 01:28 | Outpatient (RCR) | payer MEDICARE, SELFPAY | END 2024-04-05 23:40 | disposition home or self-care (01) | LOC: MM 01:28 | PROVIDERS: PCP Family Medicine; Visit Provider Internal Medicine | DX: Z51.81 Encounter for therapeutic drug level monitoring (principal); Z79.01 Long term (current) use of anticoagulants; I48.91 Unspecified atrial fibrillation | CPT/HCPCS: 85610; G0463 ==

== ENCOUNTER 2024-04-06 02:39 | Outpatient (RCR) | payer MEDICARE, SELFPAY | END 2024-05-06 23:39 | disposition home or self-care (01) | LOC: MM 02:39 | PROVIDERS: PCP Family Medicine; Visit Provider Internal Medicine | DX: Z51.81 Encounter for therapeutic drug level monitoring (principal); Z79.01 Long term (current) use of anticoagulants; I48.91 Unspecified atrial fibrillation | CPT/HCPCS: 85610; G0463 ==

== ENCOUNTER 2024-05-07 12:20 | Outpatient (RCR) | payer MEDICARE, SELFPAY | END 2024-06-05 23:59 | disposition home or self-care (01) | LOC: MM 12:20 | PROVIDERS: PCP Family Medicine; Visit Provider Internal Medicine | DX: Z51.81 Encounter for therapeutic drug level monitoring (principal); Z79.01 Long term (current) use of anticoagulants; I48.91 Unspecified atrial fibrillation | CPT/HCPCS: 85610; G0463 ==

== ENCOUNTER 2024-05-21 08:00 | Outpatient (OUT) | payer MEDICARE, SELFPAY ==
--- OUTSIDE RECORDS SUMMARY | 2024-05-19 12:05 | XMS_ITS | CCD ---
Author Organization [facility] CliniSymn Care Team Providers Care Regional Planner Name Role Phone DR SHYLA AUSTIN Primary Care Unavailable FAWWAD, KELLER H Attending Unavailable FAWWAD, KELLER H Admitting Unavailable FAWWAD, KELLER H Attending Unavailable FAWWAD, KELLER H Admitting Unavailable AUSTIN, DR SHYLA Hawley Primary Care Unavailable FAWWAD, KELLER H Attending Unavailable AUSTIN, DR SHYLA Hawley Primary Care Unavailable FAWWAD, KELLER H Admitting Unavailable FAWWAD, KELLER H Attending Unavailable AUSTIN, DR SHYLA Hawley Primary Care Unavailable FAWWAD, KELLER H Admitting Unavailable FAWWAD, KELLER H Attending Unavailable AUSTIN, DR SHYLA Hawley Primary Care Unavailable FAWWAD, KELLER H Admitting Unavailable FAWWAD, KELLER H Attending Unavailable FAWWAD, KELLER H Admitting Unavailable AUSTIN, DR SHYLA Hawley Primary Care Unavailable AUSTIN, DR SHYLA Hawley Admitting Unavailable AUSTIN, DR SHYLA Hawley Primary Care Unavailable AUSTIN, DR SHYLA Hawley Consulting Unavailable AUSTIN, DR SHYLA Hawley Attending Unavailable AUSTIN, DR SHYLA Hwaley Primary Care Unavailable AUSTIN, DR SHYLA Hawley Attending Unavailable AUSTIN, DR SHYLA Hawley Admitting Unavailable WEST, DR JANET Temple Consulting Unavailable AUSTIN, DR SHYLA Hawley Consulting Unavailable AUSTIN, DR SHYLA Hawley Primary Care Unavailable WEST, DR JANET Temple Consulting Unavailable AUSTIN, DR SHYLA Hawley Attending Unavailable AUSTIN, DR SHYLA Hawley Admitting Unavailable AUSTIN, DR SHYLA Hawley Consulting Unavailable ASHLIE, ROSA MARIA Attending Unavailable AUSTIN, DR SHYLA Hawley Primary Care Unavailable ASHLIE, ROSA MARIA Admitting Unavailable ASHLIEROSA MARIA Wooten Consulting Unavailable GEOVANNA, DR SHYLA Hawley Primary Care Unavailable CLAIRE MARIN Attending Unavailable NANI, DR JEFF Patel Consulting Unavailable CLAIRE MARIN Admitting Unavailable CLAIRE MARIN Consulting Unavailable AUSTIN, DR SHYLA Hawley Primary Care Unavailable FAWWAD, KELLER H Attending Unavailable FAWWAD, KELLER H Admitting Unavailable DR SHYLA AUSTIN Primary Care Unavailable FAWWAD, KELLER H Attending Unavailable FAWWAD, KELLER H Admitting Unavailable DR SHYLA AUSTIN Primary Care Unavailable FAWWAD, KELLER H Attending Unavailable FAWWAD, KELLER H Admitting Unavailable DR SHYLA AUSTIN Primary Care Unavailable FAWWAD, KELLER H Attending Unavailable FAWWAD, KELLER H Admitting Unavailable DR SHYLA AUSTIN Primary Care Unavailable FAWWAD, KELLER H Attending Unavailable FAWWAD, KELLER H Admitting Unavailable Nay Akers Unavailable ROSA MARIA DAILEY Attending Unavailable CLAIRE MARIN Attending Unavailable ROSA MARIA DAILEY Attending Unavailable Allergies Allergy Classification Reported Allergen(s) Allergy Type Date of Onset Reaction(s) Facility (1 source) patient allergy list reviewed by nurse or physicia Propensity to adverse reactions Comment:Done [employer] Other (1 source) Allergies Reconciled Propensity to adverse reactions Unknown [employer] Other Medications Current Medications Medication Drug Class(es) Dates Sig (Normalized) Sig (Original) alendronic acid 70 mg oral tablet (2 sources) Bisphosphonate Start: 12-10-2023 take 1 tablet by mouth every week Alendronate (Fosamax) 70 mg tablet Active 70 MG PO every week December 10, 2023 12:00am Start: 03-06-2022 take 1 tablet by kelley th every week Fosamax 70MG Fosamax 70MG, 1 (one) Tablet weekly # 12, 03/06/2022, Ref. x3. Active Oral weekly for 90 *Pick strength-form from [employer] for eRX* Feb, Active amiodarone hydrochloride 100 mg oral tablet (2 sources) Antiarrhythmic Start: 12-10-2023 take 1 mg by mouth once daily Amiodarone Active MG PO December 10, 2023 12:00am FreeTextSig: Amiodarone HCl( 100MG Oral daily ) Active -Hx Entry Oral daily; Note: Source Status: Taking*Pick strength-form from [employer] for eRX*; Provider: Oswald Tee ( ) Start: 03-01-2022 take 100 mg by mouth once daily Amiodarone HCl 100MG Amiodarone HCl( 100MG Oral daily ) Active -Hx Entry Oral daily for 0 *Pick strength-form from [employer] for eRX* Feb, Active aspirin 81 mg delayed release oral tablet (2 sources) Platelet Aggregation Inhibitor, Nonsteroidal Anti-inflammatory Drug Start: 12-10-2023 Aspirin (Liz Lo w Dose Aspirin) 81 mg tablet,delayed release (DR/EC) Active 81 MG PO Daily December 10, 2023 12:00am Start: 03-01-2022 Aspirin Adult Low Dose 81 MG Aspirin( 81MG Oral ) Active -Hx Entry Oral for 0 Feb, Active ciprofloxacin 3 mg/ml ophthalmic solution (2 sources) Quinolone Antimicrobial Start: 12-10-2023 take 1-2 drop(s) into the eye(s) every four hours Ciprofloxacin Hcl Active DROPS OPHTHALMIC December 10, 2023 12:00am FreeTextSi-2 drops Ophthalmic every 4 hours; Note: Source Status: Start; Refills: 0; Qty: 1 each; Provider: Oswald Tee Start: 07-10-2023 take 1-2 drop(s) int o the eye(s) every four hours Ciprofloxacin HCl 0.3 % 1-2 drops Ophthalmic every 4 hours for 7 Jul, Active 24 hr metoprolol succinate 100 mg extended release oral tablet (2 sources) beta-Adrenergic Meng Start: 12-10-2023 take 100 mg by mouth once daily Metoprolol Succinate Active 100 MG PO Daily December 10, 2023 12:00am Start: 08-21-2021 take 1 tablet by kelley th once daily Metoprolol Succinate ER 100MG Metoprolol Succinate ER 100MG, 1 (one) Tablet Tablet daily # 90, 08/21/2021, Ref. x1. Active Oral daily for 0 *Pick strength-form from [employer] for eRX* Aug, Active simvastatin 40 mg oral tablet (2 sources) HMG-CoA Reductase Inhibitor Start: 12-10-2023 take 40 mg by mouth once daily Simvastatin Active 40 MG PO Daily December 10, 2023 12:00am Start: 03-01-2022 Simvastatin 40 MG Simvastatin( 40MG Oral ) Active -Hx Entry Oral for 0 *Pick strength-form from [employer] for eRX* Feb, Active warfarin sodium 5 mg oral tablet (2 sources) Vitamin K Antagonist Start: 12-10-2023 Warfarin Active MG PO December 10, 2023 12:00am FreeTextSig: Warfarin Sodium( 5MG Oral ) Active -Hx Entry Oral; Note: Source Status: Taking*Pick strength-form from [employer] for eRX*; Provider: Oswald Tee ( ) Start: 03-01-2022 Warfarin Sodiu m 5MG Warfarin Sodium( 5MG Oral ) Active -Hx Entry Oral for 0 *Pick strength-form from [employer] for eRX* Feb, Active Problems Active Problems [...] disease (2 sources) Atherosclerotic heart disease of [place] coronary artery without angina pectoris; Translations: [Atherosclerotic heart disease of [place] coronary artery without angina pectoris] Onset: 03-14-2022 Chronic Disorders of lipid metabolism (4 sources) Mixed hyperlipidemia; Translations: [Hyperlipidemia, unspecified] Onset: 07-23-2023 Chronic Essential [...] Onset: 11-02-2022 Episodic Other aftercare (1 source) senior care (current) use of anticoagulants; Translations: [BEEKEEPER CURRNT USE ANTICOAGULANTS] Onset: 12-04-2022 Episodic Other [...] heart and circulatory system] Onset: 09-08-2023 Episodic Heart valve disorders (1 source) O/E - cardiac murmur; Translations: [Cardiac murmur, unspecified] Onset: 03-03-2017 Episodic Malaise and fatigue (1 source) Fatigue; Translations: [Other fatigue] Onset: 04-03-2018 Episodic Other aftercare (4 sources) Other assisted (current) drug therapy; Translations: [OTH FDC CURRENT DRUG THERAPY] Onset: 07-29-2022 Episodic Other [...] Value Interpretation Reference Range Facility Office Visiton 03-17-2024 Follow-up visit [id number] Elizabeth Eugene 1945 F Date Provider Department Center 03/17/2024 ROSA MARIA [facility] Family History Problem Relation Age of Onset Hypertension Mother Stroke Mother Atrial fibrillation Sister Lung cancer Brother Family Status - Relation Status Age at Mother Sister Brother Level of Service:65909 NE OFFICE/OUTPATIENT ESTABLISHED LOW MDM 20 MIN Normal [facility] Cholesterol in LDL Calc [Mas s/Vol]on 10-06-2023 Cholesterol in LDL [Mass/Vol] 71.0 mg/dL [facility] Comment on above: <100 mg/dl [id number] 0-129 mg/dl NEAR OR ABOVE [id number] mg/dl BORDERLINE [id number] mg/dl HIGH>190 mg/dl VERY HIGH Cholesterol in VLDL Calc [Ma ss/Vol]on 10-06-2023 Cholesterol in VLDL [Mass/Vol] 15.6 mg/dL [facility] Estimated glomerular filtrat ion rate (GFR) non- Americanon 10-06-2023 GFR/1.73 sq M.predicted among non-blacks MDRD (S/P/Bld) [Vol rate/Area] 37 mL/min/{1.73_m2} >=60 [facility] Laboratory - Chemistry and C hemistry - challengeon 10-06-2023 Calcium [Mass/Vol] 9.2 mg/dL 8.5-10.1 [facility] Chloride [Moles/Vol] 105 mmol/L 98-107 [facility] Cholesterol [Mass/Vol] 155 mg/dL <=200 [facility] Cholesterol in HDL [Mass/Vol] 69 mg/dL 40-60 [facility] Comment on above: > or =60 mg/dl - LOW CARDIOVASCULAR RISK<40 mg/dl - HIGH CARDIOVASCULAR RISK CO2 [Moles/Vol] 23.3 mmol/L 21.0-32.0 [facility] Creatinine [Mass/Vol] 1.39 mg/dL 0.55-1.02 [facility] GFR/1.73 sq M.predicted MDRD (S/P/Bld) [Vol rate/Area] 45 mL/min/{1.73_m2} >=60 [facility] Glucose [Mass/Vol] 102 mg/dL 74-106 [facility] Potassium [Moles/Vol] 3.9 mmol/L 3.5-5.1 [facility] Sodium [Moles/Vol] 141 mmol/L 136-145 [facility] Triglyceride [Mass/Vol] 78 mg/dL <=150 [facility] Urea nitrogen [Mass/Vol] 19.0 mg/dL 7.0-18.0 [facility] Urea nitrogen/Creatinine [Mass ratio] 13.7 mg/mg [facility] Serum or plasma anion gap de terminationon 10-06-2023 Anion gap [Moles/Vol] 16.6 mmol/L [facility] Serum or plasma total choles terol/high density lipoprotein (HDL) cholesterol mass starla 10-06-2023 Cholesterol.total/Ch olesterol in HDL [Mass ratio] 2.2 {ratio} [facility] Comment on above: 3.3 - 4.4 LOW RISK4. 4 - 7.1 AVERAGE RISK7.1 - 11.0 MODERATE RISK>11.0 HIGH RISK Office Visiton 09-08-2023 Follow-up visit [id number] Elizabeth Eugene 1945 Date Provider Department Center 09/08/2023 AlexandroNoamLOVERICARDOCLAIRE GAN GOSIA [facility] Family History Problem Relation Age of Onset Hypertension Mother Stroke Mother Atrial fibrillation Sister Lung cancer Brother Family Status - Relation Status Age at Mother Sister Brother Level of Service:47159 NE OFFICE/OUTPATIENT ESTABLISHED MOD MDM 30 MIN [facility] 36on 08-06-2023 36 Patient had carotid duplex recently. Amy wanted your opinion on it. It's scanned into miCab for your review. Amy increased her atorvastatin to 80mg after recent lipid. Please advise. Thanks. [facility] Office Visiton 07-23-2023 Follow-up visit [id number] Elizabeth Eugene 1945 Date Provider Department Center 07/23/2023 Meredith-ROSA MARIA DAILEY GOSIA [facility] Family History Problem Relation Age of Onset Hypertension Mother Stroke Mother Atrial fibrillation Sister Lung cancer Brother Family Status - Relation Status Age at Mother Sister Brother Level of Service:59021 NE OFFICE/OUTPATIENT ESTABLISHED MOD MDM 30 MIN Reason for Visit and Comments: Follow-up [830556] [facility] ECHOCARDIO M/2D COMPLETEon 0 08-14-2022 ECHOCARDIO M/2D COMPLETE Patient: ELIZABETH EUGENE Exam Date: 08/14/2022 : 1945 Gender:F Ordering : ROSA MARIA DAILEY Admission #: [id number] Family : DR SHYLA AUSTIN M.D. Order #: [id number] CLICK HERE TO VIEW EXAM ECHOCARDIOGRAM REPORT [...] across the septum with a small residual [id number] shunt by color Doppler. 6. Mild mitral [...] Marin M.D. on 08/15/2022 at 18:36 Normal [facility] FREE T4on 07-29-2022 Free T4 [Mass/Vol] 1.43 ng/dL Normal 0.76-1.46 [facility] Comment on above: Performed By: #### F T4 #### [facility] [address] [place] [address] Dr. Adrian Becker LIVER PROFILEon 07-29-2022 Albumin [Mass/Vol] 3.8 g/dL Normal 3.4-5.0 [facility] Comment on above: Performed By: #### T SH, LIVER #### [facility] [address] [place] [address] Dr. Adrian Becker Albumin/Globulin [Mass ratio] 1.0 {ratio} Normal [facility] Comment on above: Performed By: #### T SH, LIVER #### [facility] [address] [place] [address] Dr. Adrian Becker ALP [Catalytic activity/Vol] 66 U/L Normal 46-116 [facility] Comment on above: Performed By: #### T SH, LIVER #### [facility] [address] [place] [address] Dr. Adrian Becker ALT [Catalytic activity/Vol] 20 U/L Normal 14-59 [facility] Comment on above: Performed By: #### T SH, LIVER #### [facility] [address] [place] [address] Dr. Adrian Becker AST [Catalytic activity/Vol] 25 U/L Normal 15-37 [facility] Comment on above: Performed By: #### T SH, LIVER #### [facility] [address] [address] [address] Adrian Becker BILI, CONJUGATED 0.1 mg/dL Normal 0.0-0.2 [facility] Comment on above: Performed By: #### T SH, LIVER #### [facility] [address] [address] [address] Adrian Becker Bilirubin [Mass/Vol] 0.3 mg/dL Normal 0.2-1.0 [facility] Comment on above: Performed By: #### T SH, LIVER #### [facility] [address] [place], [place] [address] Dr. Adrian Becker Globulin (S) [Mass/Vol] 3.9 g/dL Normal [facility] Comment on above: Performed By: #### T SH, LIVER #### [facility] [address] [address] [address] Adrian Becker Protein [Mass/Vol] 7.7 g/dL Normal 6.4-8.2 [facility] Comment on above: Performed By: #### T SH, LIVER #### [facility] [address] [address] [address] Adrian Becker TSHon 07-29-2022 TSH 2.876 uIU/mL Normal 0.358-3.740 [facility] Comment on above: Performed By: #### T , LIVER #### [facility] [address] [place] [address] [address] [address] Adrian Becker XR CHEST 2 Von [...] by: JEFF CARDOZA Date: 2022-07-29 13:46 Normal [facility] XR DEXA BONE DENSITYon 05-24 XR DEXA BONE DENSITY EXAMINATION: XR DEX A BONE DENSITY, 05/24/2022 8:22 AM EST HISTORY: [...] by: JANET BORDEN Date: 2022-05-24 15:40 Normal [facility] MG MAMM SCREEN 3D ENRRIQUE CADon 05-21-2022 MG MAMM SCREEN 3D ENRRIQUE CAD Patient: ELIZABETH EUGENE Exam Date: 05/21/2022 : 1945 Gender:F Ordering : DR SHYLA AUSTIN M.D. Admission #: [id number] Family : Order #: [id number] CLICK HERE TO VIEW EXAM RADIOLOGY REPORT PROCEDURE: MAMMOGRAM SCREENING 3D BILATERAL CAD COMPARISON: MAMM SCREEN ENRRIQUE W CAD, 05/11/2020. INDICATIONS: Screening mammography Calculator Name NCI Breast Cancer Risk Assessment Tool 5 Year Breast Cancer Risk 1.50% Lifetime Breast Cancer Risk 3.30% Personal Breast Cancer No Personal Ovarian Cancer No Treatments None Family Cancers None LOCATION: [facility] BREAST COMPOSITION: Heterogeneously dense,which may obscure [...] Borden MD on 05/21/2022 at 13:48 Normal [facility] CBC AUTO DIFFon 03-12-2022 BASO # 0.1 103/ul Normal 0.0-0.1 [facility] Comment on above: Performed By: #### C BC #### [facility] [address] [place] [address] Dr. Adrian Becker Basophils/100 WBC (Bld) 1.1 % Normal 0.2-2.0 [facility] Comment on above: Performed By: #### C BC #### [facility] [address] [place] [address] Dr. Adrian Becker EO # 0.1 103/ul Normal 0.0-0.7 [facility] Comment on above: Performed By: #### C BC #### [facility] [address] [place] [address] Dr. Adrian Becker Eosinophils/100 WBC (Bld) 2.1 % Normal 0.9-7.0 [facility] Comment on above: Performed By: #### C BC #### [facility] [address] [place] [address] Dr. Adrian Becker Erythrocyte distribution width (RBC) [Ratio] 14.1 % Normal 11.0-15.0 [facility] Comment on above: Performed By: #### C BC #### [facility] [address] [place] [address] Dr. Adrian Becker Hematocrit (Bld) [Volume fraction] 33.5 % Critically low 36.0-48.0 [facility] Comment on above: Performed By: #### C BC #### [facility] [address] [place] [address] Dr. Adrian Becker Hemoglobin (Bld) [Mass/Vol] 11.1 g/dL Critically low 12.0-16.0 [facility] Comment on above: Performed By: #### C BC #### [facility] [address] [place] [address] Dr. Adrian Becker IG # 0.02 10e3/ul Normal 0.00-0.03 [facility] Comment on above: Performed By: #### C BC #### [facility] [address] [place] [address] Dr. Adrian Becker IG % 0.3 % Normal 0.0-0.5 [facility] Comment on above: Performed By: #### C BC #### [facility] [address] [place] [address] Dr. Adrian Becker LYMPH # 1.8 103/ul Normal 1.2-3.8 [facility] Comment on above: Performed By: #### C BC #### [facility] [address] [place] [address] Dr. Adrian Becker Lymphocytes/100 WBC (Bld) 29.0 % Normal 20.5-60.0 [facility] Comment on above: Performed By: #### C BC #### [facility] [address] [place] [address] Dr. Adrian Becker MANUAL DIFF REQ NO Normal [facility] Comment on above: Performed By: #### C BC #### [facility] [address] [place] [address] Dr. Adrian Becker MCH (RBC) [Entitic mass] 29.8 pg Normal 26.7-34.0 [facility] Comment on above: Performed By: #### C BC #### [facility] [address] [place] [address] Dr. Adrian Becker MCHC (RBC) [Mass/Vol] 33.1 g/dL Normal 29.9-35.2 [facility] Comment on above: Performed By: #### C BC #### [facility] [address] [place] [address] Dr. Adrian Becker MCV (RBC) [Entitic vol] 89.8 fL Normal 81.0-99.0 [facility] Comment on above: Performed By: #### C BC #### [facility] [address] [place] [address] Dr. Adrian Becker MONO # 0.4 103/ul Normal 0.3-0.8 [facility] Comment on above: Performed By: #### C BC #### [facility] [address] [place] [address] Dr. Adrian Becker Monocytes/100 WBC (Bld) 6.1 % Normal 1.7-12.0 [facility] Comment on above: Performed By: #### C BC #### [facility] [address] [address] [address] Adrian Becker NEUT # 3.8 103/ul Normal 1.4-6.5 [facility] Comment on above: Performed By: #### C BC #### [facility] [address] [address] [address] Adrian Becker Neutrophils/100 WBC (Bld) 61.4 % Normal 43.0-75.0 [facility] Comment on above: Performed By: #### C BC #### [facility] [address] [address] [address] Adrian Becker Platelet mean volume (Bld) [Entitic vol] 9.5 fL Normal 9.5-13.5 [facility] Comment on above: Performed By: #### C BC #### [facility] [address] [place] [address] Dr. Adrian Becker PLT 323 103/ul Normal 150-450 [facility] Comment on above: Performed By: #### C BC #### [facility] [address] [place] [address] Dr. Adrian Becker RBC 3.73 106/ul Critically low 4.20-5.40 [facility] Comment on above: Performed By: #### C BC #### [facility] [address] [place] [address] Dr. Adrian Becker WBC 6.2 103/ul Normal 4.0-11.0 [facility] Comment on above: Performed By: #### C BC #### [facility] [address] [place] [address] Dr. Adrian Becker PROF 14(COMP METB)on 022 Albumin [Mass/Vol] 3.6 g/dL Normal 3.4-5.0 [facility] Comment on above: Performed By: #### T SH, CMP #### [facility] [address] [place] [address] Dr. Adrian Becker Albumin/Globulin [Mass ratio] 0.9 {ratio} Normal [facility] Comment on above: Performed By: #### T SH, CMP #### [facility] [address] [address] [address] Adrian Becker ALP [Catalytic activity/Vol] 52 U/L Normal 46-116 [facility] Comment on above: Performed By: #### T SH, CMP #### [facility] [address] [address] [address] Adrian Becker ALT [Catalytic activity/Vol] 20 U/L Normal 14-59 [facility] Comment on above: Performed By: #### T SH, CMP #### [facility] [address] [address] [address] Adrian Becker Anion gap [Moles/Vol] 11.2 mmol/L Normal [facility] Comment on above: Performed By: #### T SH, CMP #### [facility] [address] [place] [address] Dr. Adrian Becker AST [Catalytic activity/Vol] 22 U/L Normal 15-37 [facility] Comment on above: Performed By: #### T SH, CMP #### [facility] [address] [place] [address] Dr. Adrian Becker Bilirubin [Mass/Vol] 0.4 mg/dL Normal 0.2-1.0 [facility] Comment on above: Performed By: #### T SH, CMP #### [facility] [address] [place] [address] Dr. Adrian Becker Calcium [Mass/Vol] 9.1 mg/dL Normal 8.5-10.1 [facility] Comment on above: Performed By: #### T SH, CMP #### [facility] [address] [place] [address] Dr. Adrian Becker Chloride [Moles/Vol] 102 mmol/L Normal 98-107 [facility] Comment on above: Performed By: #### T SH, CMP #### [facility] [address] [address] [address] Adrian Becker CO2 [Moles/Vol] 27.5 mmol/L Normal 21.0-32.0 [facility] Comment on above: Performed By: #### T SH, CMP #### [facility] [address] [address] [address] Adrian Becker Creatinine [Mass/Vol] 1.38 mg/dL Critically high 0.55-1.02 [facility] Comment on above: Performed By: #### T SH, CMP #### [facility] [address] [address] [address] Adrian Becker EGFR-AF SWAZI 45 mL/min/1.73m2 Critically low >=60 [facility] Comment on above: Performed By: #### T SH, CMP #### [facility] [address] [address] [address] Adrian Becker EGFR-NON AF SWAZI 37 mL/min/1.73m2 Critically low >=60 [facility] Comment on above: Performed By: #### T SH, CMP #### [facility] [address] [address] [address] Adrian Becker Globulin (S) [Mass/Vol] 3.8 g/dL Normal [facility] Comment on above: Performed By: #### T SH, CMP #### [facility] [address] [address] [address] Adrian Becker Glucose [Mass/Vol] 112 mg/dL Critically high 74-106 [facility] Comment on above: Performed By: #### T SH, CMP #### [facility] [address] [address] [address] Adrian Becker Potassium [Moles/Vol] 3.7 mmol/L Normal 3.5-5.1 [facility] Comment on above: Performed By: #### T SH, CMP #### [facility] [address] [address] [address] Adrian Becker Protein [Mass/Vol] 7.4 g/dL Normal 6.4-8.2 [facility] Comment on above: Performed By: #### T SH, CMP #### [facility] [address] [address] [address] Adrian Becker Sodium [Moles/Vol] 137 mmol/L Normal 136-145 [facility] Comment on above: Performed By: #### T SH, CMP #### [facility] [address] [address] [address] Adrian Becekr Urea nitrogen [Mass/Vol] 20.0 mg/dL Critically high 7.0-18.0 [facility] Comment on above: Performed By: #### T SASHA, CMP #### [facility] [address] [address] [address] Adrian Becker Urea nitrogen/Creatinine [Mass ratio] 14.5 mg/mg Normal [facility] Comment on above: Performed By: #### T SASHA, CMP #### [facility] [address] [address] [address] Adrian Becker TSHon 03-12-2022 TSH 2.459 uIU/mL Normal 0.358-3.740 [facility] Comment on above: Performed By: #### T SASHA, CMP #### [facility] [address] [address] [address] Adrian Becker CREATININE BLOODon Creatinine [Mass/Vol] 1.18 mg/dL Normal 0.60-1.20 [facility] Comment on above: Performed By: #### 2 [id number] #### [facility] [address] [place] [address], [facility] Creatinine [Mass/Vol] 45 ml/min/1.73sq m Abnormal >60 [facility] Comment on above: Result Comment: Calc ulation may not be valid for patients over 70 years Performed By: #### 2 [id number] #### [facility] [address] [place] [address], [place] Creatinine [Mass/Vol] 55 ml/min/1.73sq m Abnormal >60 [facility] Comment on above: Result Comment: Calc ulation may not be valid for patients over 70 years Performed By: #### 2 [id number] #### [facility] [address] [place] [address], [place] CTA HEART-STRUCTURE/ MORPHOL OGY/CONGENITAL HEART DISEASE WITH 3DPPon 12-18-2018 CTA HEART-STRUCTURE/ MORPHOLOGY/CONGENITA L HEART DISEASE WITH 3DPP [facility] Department of Radiology [address] [place] [id number] Patient Name: ELIZABETH EUGENE : 1945 Sex: F Age: Race: White Pt. Location: [facility] Patient Status: D Ordered Date: 12/08/2018 9:35:00 AM Completed Date: 12/18/2018 10:41 AM Requesting Provider: CLAIRE MARIN V Attending Provider: CLAIRE MARIN V Report Copy To: SHYLA AUSTIN Signs & Symptoms: Post-ASD closure, please assess for residual defect, osmium secundum type atrial septal defect History: Order scanned into RIS Needs Labs ordered, pt is coming in early for labs no medicare cpt code 84397 *mla Comments: Post-ASD closure, please assess for residual defect, osmium secundum type atrial septal defect Exam: CTA HEART-STRUCTURE/ MORPHOLOGY/CONGENITAL HEART DISEASE WITH 3DPP CTA HEART-STRUCTURE/ MORPHOLOGY/CONGENITAL HEART DISEASE WITH 3DPP [...] enlargement. Electronically signed by:Hannah Fine. Transcribed by: [email or web address], User Resident: Electronically Signed by: HANNAH FINE @ 12/19/2018 09:20 AM Normal [facility] Comment on above: Order Comment: Post- ASD closure, please assess for residual defect, osmium secundum type atrial septal defect Vital Signs Date Time Vital Sign Value Performing Clinician Facility 12-11-2023 11:42-0400 Body height 151.13 cm [facility] 12-11-2023 11:42-0400 Body mass index (BMI) [Ratio] 29 kg/m2 [facility] 12-11-2023 11:42-0400 Body weight 66.22 kg [facility] 12-11-2023 11:42-0400 Diastolic blood pressure 68 mm[Hg] [facility] 12-11-2023 11:42-0400 Heart rate 55 /min [facility] 12-11-2023 11:42-0400 Systolic blood pressure 113 mm[Hg] [facility] 07-10-2023 10:45-0500 Body height 151.13 cm Nay Akers Other [facility] Other 07-10-2023 10:45-0500 Body mass index (BMI) [Ratio] 28.95 kg/m2 Nay Akers Other [facility] Other 07-10-2023 10:45-0500 Body temperature 98.5 [degF] Nay Akers Other [facility] Other 07-10-2023 10:45-0500 Body weight 66.13 kg Nay Akers Other [facility] Other 07-10-2023 10:45-0500 Diastolic blood pressure 84 mm[Hg] Nay Akers Other [facility] Other 07-10-2023 10:45-0500 Respiratory rate 18 /min Nay Akers Other [facility] Other 07-10-2023 10:45-0500 SaO2% (BldA) [Mass fraction] 100 % Nay Akers Other [facility] Other 07-10-2023 10:45-0500 Systolic blood pressure 124 mm[Hg] Nay Akers Other [facility] Other Encounters Encounter Date Encounter Type Care Provider Facility Start: 03-17-2024 End: 03-17-2024 ambulatory [facility] Start: 12-11-2023 End: 12-11-2023 ambulatory [facility] Work Phone: Start: 12-11-2023 End: 12-11-2023 Patient encounter procedure [facility] Physician [facility] Work Phone: Start: 10-06-2023 Non-patient / Non-visit [facility] Physician [facility] Professional [facility] Work Phone: Start: 09-08-2023 End: 09-08-2023 ambulatory [facility] Start: 07-23-2023 End: 07-23-2023 ambulatory [facility] Start: 07-10-2023 End: 07-10-2023 ambulatory Nay Akers Other [facility] Other Start: 07-10-2023 Office outpatient vi sit 15 minutes Nay Akers [facility] Start: 11-04-2022 End: 12-04-[address] SHYLA AUSTIN Facility:[facility] Start: 10-07-2022 End: 11-01-[address] SHYLA AUSTIN Facility:[facility] Start: 09-04-2022 End: 10-04-[address] SHYLA AUSTIN Facility:[facility] Start: 08-14-2022 End: 08-15-2022 ambulatory ROSA MARIA DAILEY Facility:[facility] Start: 08-07-2022 End: 09-04-[address] SHYLA AUSTIN Facility:[facility] Start: 07-29-2022 End: 07-30-[address] SHYLA AUSTIN Facility:[facility] Start: 07-08-2022 End: 08-07-[address] SHYLA AUSTIN Facility:[facility] Start: 06-06-2022 End: 07-07-[address] SHYLA AUSTIN Facility:[facility] Start: 05-24-2022 End: 05-25-[address] SHYLA AUSTIN Facility:[facility] Start: 05-21-2022 End: 05-22-[address] SHYLA AUSTIN Facility:[facility] Start: 05-07-2022 End: 06-05-2022 ambulatory SHAIKH So PAREDES Facility:[facility] Start: 04-07-2022 End: 05-06-2022 ambulatory SHAIKH So PAREDES Facility:[facility] Start: 03-12-2022 End: 03-13-[address] SHYLA AUSTIN Facility:[facility] Start: 03-07-2022 End: 04-06-2022 ambulatory SHAIKH So PAREDES Facility:[facility] Start: 03-06-2022 Adult health examination Nay Akers Other [facility] Other Start: 03-01-2022 Problem, abnormal examination Nay Akers Other [facility] Other Start: 02-04-2022 End: 03-06-2022 ambulatory SHAIKH So PAREDES Facility:[facility] Start: 01-04-2022 End: 02-01-2022 ambulatory KELLER So PAREDES Facility:[facility] Procedures Date Procedure Procedure Detail Performing Clinician Start: 08-14-2016 Screening mammography Nilda Akers Other Start: 04-26-2014 General examination of patient Nay Akers Other Screening for malign ant neoplasm of breast Nay Akers Other Payers Date Payer Category Payer Medicare [id number] 1945 Unknown [id number] 2.16.84 [id number] 1945 Unknown [id number] 2.16.84 0.1.697440.3.579.2.593 1945 Unknown [id number] 2.16.84 0.1.851355.3.579.2.59 1945 Unknown [id number] 2.16.84 0.1.368171.3.579.2.593 1945 Unknown [id number] 2.16.84 0.1.500810.3.579.2.593 1945 Unknown [id number] 2.16.84 0.1.366551.3.579.2.593 1945 Unknown [id number] 2.16.84 0.1.918954.3.579.2.593 1945 Unknown [id number] 2.16.84 0.1.318567.3.579.2.593 1945 Unknown [id number] 2.16.84 0.1.800569.3.579.2.593 1945 Unknown [id number] 2.16.84 0.1.049107.3.579.2.593 1945 Unknown [id number] 2.16.84 0.1.831087.3.579.2.593 1945 Unknown [id number] 2.16.84 0.1.052956.3.579.2.593 1945 Unknown [id number] 2.16.84 0.1.443639.3.579.2.593 1945 Unknown [id number] 2.16.84 0.1.231636.3.579.2.593 1945 Unknown [id number] 2.16.84 0.1.888313.3.579.2.593 1945 Unknown [id number] 2.16.84 0.1.526541.3.579.2.593 Social History Date Type Detail Facility Unknown if ever smoked [facility] Other Sex Assigned At Sex Assigned At Bir th [facility] Other Start: 12-11-2023 Tobacco smoking status NHIS Never smoked tobacco (finding) [facility] Start: 1945 Sex Assigned At Female F [facility] Clinical Notes 07-10-2023 to 03-17-2024 Note Date & Type Note Facility 03-17-2024 Note Hypertension is elev ated in office- will increase norvasc to 10 mg daily, and continue lisinopril, toprol Renal function stable but elevated for her [facility] 03-17-2024 Note Coronary artery dise ase is stable without any concerning symptoms. Continue GDMT- ASA, toprol, lipitor and zetia continue risk factor modifications- heart healthy diet, regular exercise as tolerated and continue all medications. [facility] 03-17-2024 Note In light of renal fu nction slightly elevated at 1.39 I will not proceed with CT imaging at this time- will repeat Carotid US to re-evaluate for any worsening stenosis Continue ASA and lipitor/zetia for HPL [facility] 03-17-2024 Note [id number]= 5 Age, Female, HTN, CAD Continue warfarin anticoagulation, she had INR drawn today and managed by others. Continue amiodarone and toprol- rate well controlled and in rhythm per assessemnt [facility] 03-17-2024 Note [facility] CARDIOLOGY PROGR ESS NOTE HPI: Elizabeth Eugene is a 79 y.o. female here for concerns about high blood pressure. HPI Patient here for 6 mo follow up PAF, CAD, carotid artery stenosis, and hypertension. She stopped by the office this morning with concerns of elevated BP. At home this morning it was 178/100's she said. Last night it was 158 systolic. She denies chest pain, SOB, palpitations, and bleeding on warfarin. She had labs w/ lipid panel in October 2023. Denied headache, vision changes, N/T, one sided weakness or speech changes. Overall pt states she is feeling well, but was worried about her b/p this morning. She took all medications about 1 hour ago. Review of Systems Constitutional: Positive for malaise/fatigue. Musculoskeletal: Positive for back pain. Neurological: Positive for light-headedness ( not often ). All other systems reviewed and are negative. Visit Vitals BP 170/78 (BP Location: Left arm, Patient Position: Sitting) Pulse 70 Ht 1.499 m (4' 11 ) Wt 65.8 kg (145 lb) SpO2 99% BMI 29.29 kg/m??? Smoking Status Never BSA 1.66 m??? No Known Allergies Medications: Current Outpatient Medications on File Prior to Visit Medication Sig Dispense Refill amiodarone (Pacerone) 100 mg tablet Take 1 tablet (100 mg) by mouth once daily as directed. 90 tablet 3 aspirin 81 mg EC tablet Take 1 tablet every day by oral route. atorvastatin (Lipitor) 80 mg tablet Take 1 tablet (80 mg) by mouth at bedtime. 90 tablet 3 lisinopril 10 mg tablet Take 1 tablet (10 mg) by mouth in the morning. 90 tablet 3 metoprolol succinate XL (Toprol-XL) 50 mg 24 hr tablet Take 1 tablet (50 mg) by mouth in the morning and at bedtime. 180 tablet 3 warfarin (Coumadin) 2 mg tablet TAKE DIRECTED PER COUMADIN CLINIC [DISCONTINUED] amLODIPine (Norvasc) 5 mg tablet Take 1 tablet (5 mg) by mouth in the morning. 90 tablet 3 atorvastatin (Lipitor) 80 mg tablet Take 1 tablet (80 mg) by mouth at bedtime. 90 tablet [...] Thought content normal. Judgment: Judgment normal. Labs: 10/06/23 NA and K+ normal BUN 19, Cr 1.39- typically her CR is 1-1.3 Chol 155, Trig 78, HDL 69, LDL 71.- stable Last lab values have been reviewed CV Testing: EKG today 03/17/24 normal sinus rhythm with Nonsignificant ST abnormality Carotid ultrasound 07/30/2023: More than 70% flow stenosis in the right internal carotid artery by flow velocity [proximal ICA PSV 291 cm/s, EDV 54 cm/s, ratio 3.4], 0 to 49% flow stenosis in the left internal carotid artery by flow velocity. Chest x-ray 06/27/2023: No consolidation, no pneumothorax, no pleural effusion. PFTs 07/08/2023: Normal spirometry with mildly decreased TLC and normal diffusion impairment. There is a mild decrease in FVC and TLC when compared to prior testing. Clinical correlation required.a Echocardiogram 08/16/2022: Normal LV systolic function, EF 60%, normal RV size and systolic function. Severe left atrial dilatation. Normal right atrial size. Interatrial septal closure is seen well seated across the septum with a small residual left to right shunt by color Doppler. Mild mitral regurgitation. Normal right sided pressures, trivial posterior pericardial effusion. [facility] 04/07/2018: Global left ventricular systolic function is normal. No regional wall motion abnormality. Normal right ventricular systolic function. The right ventricle is moderately enlarged. The left atrium is severely enlarged. Atrial septal aneurysm with right excursion. The left atrial appendage is multilobular. No thrombus seen in the left atrial appendage. The right atrium is severely enlar (more content not included)... [facility] 03-17-2024 Note Patient here for 6 m o follow up PAF, CAD, carotid artery stenosis, and hypertension. She stopped by the office this morning with concerns of elevated BP. At home this morning it was 178/100's she said. Last night it was 158 systolic. She denies chest pain, SOB, palpitations, and bleeding on warfarin. She had labs w/ lipid panel in October 2023. Review of Systems Constitutional: Positive for malaise/fatigue. Musculoskeletal: Positive for back pain. Neurological: Positive for light-headedness ( not often ). All other systems reviewed and are negative. [facility] 09-08-2023 Note [facility] - [facility] Subjective Elizabeth Eugene is a 78 [...] atrial fibrillation, fenestrated ASD and PFO with olwx-[id number] shunting and enlarged right atrium and ventricle. [...] with filling of the distal vessel via ghnk-jl-oymcf collaterals and no significant disease in the [...] eGFR - Non- (more content not included)... [facility] 07-23-2023 Note Hypertension is well controlled B/p 110/62 Continue norvasc, lisinopril/ hydrochlorothiazide and toprol Check BMP [facility] 07-23-2023 Note Coronary artery dise ase is stable Continue GDMT- ASA, lipitor, toprol, and lisinopril continue risk factor modifications- heart healthy diet, regular exercise as tolerated and continue all medications. [facility] 07-23-2023 Note Continue ASA and lip itor Carotid US to evaluate degree of stenosis. Script for BMP and Lipid profile [facility] 07-23-2023 Note No concerning sympto ms today, reviewed previous echocardiogram with noted small leak and pt voiced she already knew from D/W Dr Marin last year. [facility] 07-23-2023 Note [id number]= 5 Age, Female, HTN, CAD Remains on amiodarone, and toprol for rate and rhythm control. Warfarin for anticoagulation- denied bleeding tendencies. Recent LFT, Thyroid function, CXR and PFT reviewed with pt- no acute concerns. D/W pt she will need to have annual LFT, Thyroid function, CXR, PFT and eye exam and she voiced understanding. [facility] 07-23-2023 Note [facility]TP CARDIOLOGY PROGR ESS NOTE HPI: Elizabeth Eugene is a 78 y.o. female here for routine 6 month F/U HPI Pleasant 78 yo female presents today for known h/o hypertension, atrial fibrillation, fenestrated ASD and PFO with mrcw-ec-jakll shunting and enlarged right atrium and ventricle. [...] with filling of the distal vessel via alsu-md-umjfa collaterals and no significant disease in the [...] atrial fibrillation, fenestrated ASD and PFO with dboo-nn-tmruv shunting and enlarged right atrium and ventricle. [...] with filling of the distal vessel via qcon-vk-kqceh collaterals and no significant disease in the [...] lipids stable Last (more content not included)... [facility] 07-10-2023 Evaluation note Encounter Date Diagnosis Assessment Notes 04 Gaurav, 2024 Acute bacterial conjunctivitis of both eyes (ICD-10 [...] understanding and is agreeable to treatment plan. [facility] Other Evaluation noteNo assessment information available [facility] Work Phone: History general Narrative - Reported* Type Description Date Medical History Problem Title : comp liance [...] : Active,, Medical History Problem Title : Problems Reconci led, Problem Status : Active,, Medical History Problem [...] biopsy 12/10 Repair of ASD 06/2018 - [facility], Problem Status : Active, [facility] [employer] Other Summary Purpose Family History No Family History Records Found Relationship Condition Age at Onset Recorded Date/T sally father Unknown Not Specified Unknown Advance Directives No Advanced Directives Records Found Advance Directive Response Recorded Date/ Time Advance Directives No December 10 11:30am Chief Complaint and Reason for Visit Chief Complaint suture removal left hand Additional Source Comments INFORMATION SOURCE (unrecogn ized section and content) DATE CREATED AUTHOR 07/29/2019 [facility] DATE CREATED AUTHOR AUTHOR'S ORGANIZ ATION 12/13/2022 [facility] DATE CREATED AUTHOR AUTHOR'S ORGANIZ ATION 03/19/2024 [facility] REASON FOR VISIT (unrecogniz ed section and content) POSS RIGHT PINK EYE Care Teams (unrecognized sec tion and content) Team Status: Active Member Role Status Dates Shyla Austin MD Primary Care Provider Active Team Status: Active Member Role Status Dates Shyla Austin MD Primary Care Provide r, Attending Provider Active Start: October 06, 2023 Team Status: Inactive Member Role Status Dates Shyla Austin MD Primary Care Provide r, Attending Provider Active Start: December 11, 2023 End: December 11, 2023 Goals (unrecognized section and content) Goals may be documented in a n alternate section FOR RECORDS PERTAINING TO PATIENTS WHO ARE [...] BE BASED ON THE PRIMARY CLINICAL RECORDS. [facility]. provides no warranty or guarantee of the accuracy or completeness of information in this document.
[2024-05-21 08:44] LABS: Chol HDL Ratio 2.1; Cholesterol 143 mg/dL (<=200); HDL Cholesterol 68 mg/dL (40-60); Triglycerides 102 mg/dL (<=150); VLDL CHOLESTEROL 20.4 mg/dL
--- OUTSIDE RECORDS SUMMARY | 2024-05-24 11:25 | XMS_ITS | CCD ---
Author Organization [facility] CliniSyvt Care Team Providers Care Multisensor Intelligence Officer Name Role Phone DR SHYLA AUSTIN Primary [...] or physicia Propensity to adverse reactions Comment:Done [employer] Other (1 source) Allergies Reconciled Propensity to adverse reactions Unknown [employer] Other Medications Current Medications Medication Drug Class(es) [...] Oral weekly for 90 *Pick strength-form from [employer] for [employer]* Feb, Active amiodarone hydrochloride 100 mg oral tablet (2 sources) Antiarrhythmic Start: 12-10-2023 take 1 mg by mouth once daily Amiodarone Active MG PO December 10, 2023 12:00am [employer]: Amiodarone HCl( 100MG Oral daily ) Active -Hx Entry Oral daily; Note: Source Status: Taking*Pick strength-form from [employer] for e[employer]*; Provider: Oswald Tee ( ) Start: 03-01-2022 take 100 mg by mouth once daily Amiodarone HCl 100MG Amiodarone HCl( 100MG Oral daily ) Active -Hx Entry Oral daily for 0 *Pick strength-form from [employer] for [employer]* Feb, Active aspirin 81 [...] Oral daily for 0 *Pick strength-form from [employer] for [employer]* Aug, Active simvastatin 40 mg oral tablet (2 sources) HMG-CoA Reductase Inhibitor Start: 12-10-2023 take 40 mg by mouth once daily Simvastatin Active 40 MG PO Daily December 10, 2023 12:00am Start: 03-01-2022 Simvastatin 40 MG Simvastatin( 40MG Oral ) Active -Hx Entry Oral for 0 *Pick strength-form from [employer]* Feb, Active warfarin sodium 5 mg oral tablet (2 sources) Vitamin K Antagonist Start: 12-10-2023 Warfarin Active MG PO December 10, 2023 12:00am [employer]: Warfarin Sodium( 5MG Oral ) Active -Hx Entry Oral; Note: Source Status: Taking*Pick strength-form from [employer] for eRX*; Provider: Oswald Tee ( ) Start: 03-01-2022 Warfarin Sodiu m 5MG Warfarin Sodium( 5MG Oral ) Active -Hx Entry Oral for 0 *Pick strength-form from [employer]* Feb, Active Problems Active Problems [...] disease (2 sources) Atherosclerotic heart disease of [place] coronary artery without angina pectoris; Translations: [Atherosclerotic heart disease of [place] coronary artery without angina pectoris] Onset: 03-14-2022 [...] Onset: 11-02-2022 Episodic Other aftercare (1 source) USP (current) use of anticoagulants; Translations: [BACKSHOE PERSON CURRNT USE ANTICOAGULANTS] Onset: 12-04-2022 Episodic Other [...] 04-03-2018 Episodic Other aftercare (4 sources) Other residential (current) drug therapy; Translations: [OTH [facility] CURRENT DRUG THERAPY] Onset: 07-29-2022 Episodic Other [...] Range Facility Office Visiton 03-17-2024 Follow-up visit [id number] Elizabeth Eugene 1945 F Date Provider Department Center 03/17/2024 ROSA MARIA DIOP [facility] Family History Problem Relation Age of Onset Hypertension Mother Stroke Mother Atrial fibrillation Sister Lung cancer Brother Family Status - Relation Status Age at Mother Sister Brother Level of Service:77477 ND OFFICE/OUTPATIENT ESTABLISHED LOW MDM 20 MIN Normal [facility] Cholesterol in LDL Calc [Mas s/Vol]on 10-06-2023 Cholesterol in LDL [Mass/Vol] 71.0 mg/dL [facility] Comment on above: <100 mg/dl [id number] 0-129 mg/dl NEAR OR ABOVE [id number] mg/dl BORDERLINE [id number] mg/dl HIGH>190 mg/dl VERY HIGH Cholesterol in VLDL Calc [Ma ss/Vol]on 10-06-2023 Cholesterol in VLDL [Mass/Vol] 15.6 mg/dL [facility] Estimated glomerular filtrat ion rate (GFR) non- Americanon 10-06-2023 GFR/1.73 sq M.predicted among non-blacks MDRD (S/P/Bld) [Vol rate/Area] 37 mL/min/{1.73_m2} >=60 [facility] Laboratory - Chemistry and C hemistry - challengeon 10-06-2023 Calcium [Mass/Vol] 9.2 mg/dL 8.5-10.1 [facility] Chloride [Moles/Vol] 105 mmol/L 98-107 [facility] Cholesterol [Mass/Vol] 155 mg/dL <=200 [facility] Cholesterol in HDL [Mass/Vol] 69 mg/dL 40-60 [facility] Comment on above: > or =60 mg/dl - LOW CARDIOVASCULAR RISK<40 mg/dl - HIGH CARDIOVASCULAR RISK CO2 [Moles/Vol] 23.3 mmol/L 21.0-32.0 [facility] Creatinine [Mass/Vol] 1.39 mg/dL 0.55-1.02 [facility] GFR/1.73 sq M.predicted MDRD (S/P/Bld) [Vol rate/Area] 45 mL/min/{1.73_m2} >=60 [facility] Glucose [Mass/Vol] 102 mg/dL 74-106 [facility] Potassium [Moles/Vol] 3.9 mmol/L 3.5-5.1 [facility] Sodium [Moles/Vol] 141 mmol/L 136-145 [facility] Triglyceride [Mass/Vol] 78 mg/dL <=150 [facility] Urea nitrogen [Mass/Vol] 19.0 mg/dL 7.0-18.0 [facility] Urea nitrogen/Creatinine [Mass ratio] 13.7 mg/mg [facility] Serum or plasma anion gap de terminationon 10-06-2023 Anion gap [Moles/Vol] 16.6 mmol/L [facility] Serum or plasma total choles terol/high density lipoprotein (HDL) cholesterol mass starla 10-06-2023 Cholesterol.total/Ch olesterol in HDL [Mass ratio] 2.2 {ratio} [facility] Comment on above: 3.3 - 4.4 LOW RISK4. 4 - 7.1 AVERAGE RISK7.1 - 11.0 MODERATE RISK>11.0 HIGH RISK Office Visiton 09-08-2023 Follow-up visit [id number] Elizabeth Eugene 1945 Date Provider Department Center 09/08/2023 AlexandroNoamLOVERICARDOCLAIRE GAN GOSIA [facility] Family History Problem Relation Age of Onset Hypertension Mother Stroke Mother Atrial fibrillation Sister Lung cancer Brother Family Status - Relation Status Age at Mother Sister Brother Level of Service:25995 ND OFFICE/OUTPATIENT ESTABLISHED MOD MDM 30 MIN [facility] 36on 08-06-2023 36 Patient had carotid duplex recently. Amy wanted your opinion on it. It's scanned into [employer] for your review. Amy increased her atorvastatin to 80mg after recent lipid. Please advise. Thanks. [facility] Office Visiton 07-23-2023 Follow-up visit [id number] Elizabeth Eugene 1945 Date Provider Department Center 07/23/2023 Meredith-ROSA MARIA DAILEY GOSIA [facility] Family History Problem Relation Age of Onset Hypertension Mother Stroke Mother Atrial fibrillation Sister Lung cancer Brother Family Status - Relation Status Age at Mother Sister Brother Level of Service:12436 ND OFFICE/OUTPATIENT ESTABLISHED MOD MDM 30 MIN Reason for Visit and Comments: Follow-up [[id number]] [facility] ECHOCARDIO M/2D COMPLETEon 0 08-14-2022 ECHOCARDIO M/2D COMPLETE Patient: ELIZABETH EUGENE Exam Date: 08/14/2022 : 1945 Gender:F Ordering : ROSA MARIA DAILEY Admission #: [id number] Family : DR SHYLA AUSTIN M.D. Order #: [id number] CLICK HERE TO VIEW EXAM ECHOCARDIOGRAM REPORT [...] across the septum with a small residual [id number] shunt by color Doppler. 6. Mild mitral [...] Marin M.D. on 08/15/2022 at 18:36 Normal [facility] FREE T4on 07-29-2022 Free T4 [Mass/Vol] 1.43 ng/dL Normal 0.76-1.46 [facility] Comment on above: Performed By: #### F T4 #### [facility] [address] [place] [address] Dr. Adrian Becker LIVER PROFILEon 07-29-2022 Albumin [Mass/Vol] 3.8 g/dL Normal 3.4-5.0 [facility] Comment on above: Performed By: #### T SH, LIVER #### [facility] [address] [place] [address] Dr. Adrian Becker Albumin/Globulin [Mass ratio] 1.0 {ratio} Normal [facility] Comment on above: Performed By: #### T SH, LIVER #### [facility] [address] [place] [address] Dr. Adrian Becker ALP [Catalytic activity/Vol] 66 U/L Normal 46-116 [facility] Comment on above: Performed By: #### T SH, LIVER #### [facility] [address] [place] [address] Dr. Adrian Becker ALT [Catalytic activity/Vol] 20 U/L Normal 14-59 [facility] Comment on above: Performed By: #### T SH, LIVER #### [facility] [address] [place] [address] Dr. Adrian Becker AST [Catalytic activity/Vol] 25 U/L Normal 15-37 [facility] Comment on above: Performed By: #### T SH, LIVER #### [facility] [address] [address] [address] Adrian Becker BILI, CONJUGATED 0.1 mg/dL Normal 0.0-0.2 [facility] Comment on above: Performed By: #### T SH, LIVER #### [facility] [address] [address] [address] Adrian Becker Bilirubin [Mass/Vol] 0.3 mg/dL Normal 0.2-1.0 [facility] Comment on above: Performed By: #### T SH, LIVER #### [facility] [address] [place], [place] [address] Dr. Adrian Becker Globulin (S) [Mass/Vol] 3.9 g/dL Normal [facility] Comment on above: Performed By: #### T SH, LIVER #### [facility] [address] [address] [address] Adrian Becker Protein [Mass/Vol] 7.7 g/dL Normal 6.4-8.2 [facility] Comment on above: Performed By: #### T SH, LIVER #### [facility] [address] [address] [address] Adrian Becker TSHon 07-29-2022 TSH 2.876 uIU/mL Normal 0.358-3.740 [facility] Comment on above: Performed By: #### T , LIVER #### [facility] [address] [place] [address] [address] [address] Adrian Becker XR CHEST 2 Von [...] by: JEFF CARDOZA Date: 2022-07-29 13:46 Normal [facility] XR DEXA BONE DENSITYon 05-24 XR [...] by: JANET BORDEN Date: 2022-05-24 15:40 Normal [facility] MG MAMM SCREEN 3D ENRRIQUE CADon 05-21-2022 MG MAMM SCREEN 3D ENRRIQUE CAD Patient: ELIZABETH EUGENE Exam Date: 05/21/2022 : 1945 Gender:F Ordering : DR SHYLA AUSTIN M.D. Admission #: [id number] Family : Order #: [id number] CLICK HERE TO VIEW EXAM RADIOLOGY REPORT PROCEDURE: MAMMOGRAM SCREENING 3D BILATERAL CAD COMPARISON: MAMM SCREEN ENRRIQUE W CAD, 05/11/2020. INDICATIONS: Screening mammography Calculator Name NCI Breast Cancer Risk Assessment Tool 5 Year Breast Cancer Risk 1.50% Lifetime Breast Cancer Risk 3.30% Personal Breast Cancer No Personal Ovarian Cancer No Treatments None Family Cancers None LOCATION: [facility] BREAST COMPOSITION: Heterogeneously dense,which may [...] Borden MD on 05/21/2022 at 13:48 Normal [facility] CBC AUTO DIFFon 03-12-2022 BASO # 0.1 103/ul Normal 0.0-0.1 [facility] Comment on above: Performed By: #### C BC #### [facility] [address] [place] [address] Dr. Adrian Becker Basophils/100 WBC (Bld) 1.1 % Normal 0.2-2.0 [facility] Comment on above: Performed By: #### C BC #### [facility] [address] [place] [address] Dr. Adrian Becker EO # 0.1 103/ul Normal 0.0-0.7 [facility] Comment on above: Performed By: #### C BC #### [facility] [address] [place] [address] Dr. Adrian Becker Eosinophils/100 WBC (Bld) 2.1 % Normal 0.9-7.0 [facility] Comment on above: Performed By: #### C BC #### [facility] [address] [place] [address] Dr. Adrian Becker Erythrocyte distribution width (RBC) [Ratio] 14.1 % Normal 11.0-15.0 [facility] Comment on above: Performed By: #### C BC #### [facility] [address] [place] [address] Dr. Adrian Becker Hematocrit (Bld) [Volume fraction] 33.5 % Critically low 36.0-48.0 [facility] Comment on above: Performed By: #### C BC #### [facility] [address] [place] [address] Dr. Adrian Becker Hemoglobin (Bld) [Mass/Vol] 11.1 g/dL Critically low 12.0-16.0 [facility] Comment on above: Performed By: #### C BC #### [facility] [address] [place] [address] Dr. Adrian Becker IG # 0.02 10e3/ul Normal 0.00-0.03 [facility] Comment on above: Performed By: #### C BC #### [facility] [address] [place] [address] Dr. Adrian Becker IG % 0.3 % Normal 0.0-0.5 [facility] Comment on above: Performed By: #### C BC #### [facility] [address] [place] [address] Dr. Adrian Becker LYMPH # 1.8 103/ul Normal 1.2-3.8 [facility] Comment on above: Performed By: #### C BC #### [facility] [address] [place] [address] Dr. Adrian Becker Lymphocytes/100 WBC (Bld) 29.0 % Normal 20.5-60.0 [facility] Comment on above: Performed By: #### C BC #### [facility] [address] [place] [address] Dr. Adrian Becker MANUAL DIFF REQ NO Normal [facility] Comment on above: Performed By: #### C BC #### [facility] [address] [place] [address] Dr. Adrian Becker MCH (RBC) [Entitic mass] 29.8 pg Normal 26.7-34.0 [facility] Comment on above: Performed By: #### C BC #### [facility] [address] [place] [address] Dr. Adrian Becker MCHC (RBC) [Mass/Vol] 33.1 g/dL Normal 29.9-35.2 [facility] Comment on above: Performed By: #### C BC #### [facility] [address] [place] [address] Dr. Adrian Becker MCV (RBC) [Entitic vol] 89.8 fL Normal 81.0-99.0 [facility] Comment on above: Performed By: #### C BC #### [facility] [address] [place] [address] Dr. Adrian Becker MONO # 0.4 103/ul Normal 0.3-0.8 [facility] Comment on above: Performed By: #### C BC #### [facility] [address] [place] [address] Dr. Adrian Becker Monocytes/100 WBC (Bld) 6.1 % Normal 1.7-12.0 [facility] Comment on above: Performed By: #### C BC #### [facility] [address] [address] [address] Adrian Becker NEUT # 3.8 103/ul Normal 1.4-6.5 [facility] Comment on above: Performed By: #### C BC #### [facility] [address] [address] [address] Adrian Becker Neutrophils/100 WBC (Bld) 61.4 % Normal 43.0-75.0 [facility] Comment on above: Performed By: #### C BC #### [facility] [address] [address] [address] Adrian Becker Platelet mean volume (Bld) [Entitic vol] 9.5 fL Normal 9.5-13.5 [facility] Comment on above: Performed By: #### C BC #### [facility] [address] [place] [address] Dr. Adrian Becker PLT 323 103/ul Normal 150-450 [facility] Comment on above: Performed By: #### C BC #### [facility] [address] [place] [address] Dr. Adrian Becker RBC 3.73 106/ul Critically low 4.20-5.40 [facility] Comment on above: Performed By: #### C BC #### [facility] [address] [place] [address] Dr. Adrian Becker WBC 6.2 103/ul Normal 4.0-11.0 [facility] Comment on above: Performed By: #### C BC #### [facility] [address] [place] [address] Dr. Adrian Becker PROF 14(COMP METB)on 022 Albumin [Mass/Vol] 3.6 g/dL Normal 3.4-5.0 [facility] Comment on above: Performed By: #### T SH, CMP #### [facility] [address] [place] [address] Dr. Adrian Becker Albumin/Globulin [Mass ratio] 0.9 {ratio} Normal [facility] Comment on above: Performed By: #### T SH, CMP #### [facility] [address] [address] [address] Adrian Becker ALP [Catalytic activity/Vol] 52 U/L Normal 46-116 [facility] Comment on above: Performed By: #### T SH, CMP #### [facility] [address] [address] [address] Adrian Becker ALT [Catalytic activity/Vol] 20 U/L Normal 14-59 [facility] Comment on above: Performed By: #### T SH, CMP #### [facility] [address] [address] [address] Adrian Becker Anion gap [Moles/Vol] 11.2 mmol/L Normal [facility] Comment on above: Performed By: #### T SH, CMP #### [facility] [address] [place] [address] Dr. Adrian Becker AST [Catalytic activity/Vol] 22 U/L Normal 15-37 [facility] Comment on above: Performed By: #### T SH, CMP #### [facility] [address] [place] [address] Dr. Adrian Becker Bilirubin [Mass/Vol] 0.4 mg/dL Normal 0.2-1.0 [facility] Comment on above: Performed By: #### T SH, CMP #### [facility] [address] [place] [address] Dr. Adrian Becker Calcium [Mass/Vol] 9.1 mg/dL Normal 8.5-10.1 [facility] Comment on above: Performed By: #### T SH, CMP #### [facility] [address] [place] [address] Dr. Adrian Becker Chloride [Moles/Vol] 102 mmol/L Normal 98-107 [facility] Comment on above: Performed By: #### T SH, CMP #### [facility] [address] [address] [address] Adrian Becker CO2 [Moles/Vol] 27.5 mmol/L Normal 21.0-32.0 [facility] Comment on above: Performed By: #### T SH, CMP #### [facility] [address] [address] [address] Adrian Becker Creatinine [Mass/Vol] 1.38 mg/dL Critically high 0.55-1.02 [facility] Comment on above: Performed By: #### T SH, CMP #### [facility] [address] [address] [address] Adrian Becker EGFR-AF COMORAN 45 mL/min/1.73m2 Critically low >=60 [facility] Comment on above: Performed By: #### T SH, CMP #### [facility] [address] [address] [address] Adrian Becker EGFR-NON AF COMORAN 37 mL/min/1.73m2 Critically low >=60 [facility] Comment on above: Performed By: #### T SH, CMP #### [facility] [address] [address] [address] Adrian Becker Globulin (S) [Mass/Vol] 3.8 g/dL Normal [facility] Comment on above: Performed By: #### T SH, CMP #### [facility] [address] [address] [address] Adrian Becker Glucose [Mass/Vol] 112 mg/dL Critically high 74-106 [facility] Comment on above: Performed By: #### T SH, CMP #### [facility] [address] [address] [address] Adrian Becker Potassium [Moles/Vol] 3.7 mmol/L Normal 3.5-5.1 [facility] Comment on above: Performed By: #### T SH, CMP #### [facility] [address] [address] [address] Adrian Becker Protein [Mass/Vol] 7.4 g/dL Normal 6.4-8.2 [facility] Comment on above: Performed By: #### T SH, CMP #### [facility] [address] [address] [address] Adrian Becker Sodium [Moles/Vol] 137 mmol/L Normal 136-145 [facility] Comment on above: Performed By: #### T SH, CMP #### [facility] [address] [address] [address] Adrian Becker Urea nitrogen [Mass/Vol] 20.0 mg/dL Critically high 7.0-18.0 [facility] Comment on above: Performed By: #### T SASHA, CMP #### [facility] [address] [address] [address] Adrian Becker Urea nitrogen/Creatinine [Mass ratio] 14.5 mg/mg Normal [facility] Comment on above: Performed By: #### T SASHA, CMP #### [facility] [address] [address] [address] Adrian Becker TSHon 03-12-2022 TSH 2.459 uIU/mL Normal 0.358-3.740 [facility] Comment on above: Performed By: #### T SASHA, CMP #### [facility] [address] [address] [address] Adrian Becker CREATININE BLOODon Creatinine [Mass/Vol] 1.18 mg/dL Normal 0.60-1.20 [facility] Comment on above: Performed By: #### 2 [id number] #### [facility] [address] [place] [address], [facility] Creatinine [Mass/Vol] 45 ml/min/1.73sq m Abnormal >60 [facility] Comment on above: Result Comment: Calc ulation may not be valid for patients over 70 years Performed By: #### 2 5656 #### [facility] [address] [place] [address], [place] Creatinine [Mass/Vol] 55 ml/min/1.73sq m Abnormal >60 [facility] Comment on above: Result Comment: Calc ulation may not be valid for patients over 70 years Performed By: #### 2 5656 #### [facility] [address] [place] [address], [place] CTA HEART-STRUCTURE/ MORPHOL OGY/CONGENITAL HEART DISEASE WITH 3DPPon 12-18-2018 CTA HEART-STRUCTURE/ MORPHOLOGY/CONGENITA L HEART DISEASE WITH 3DPP [facility] Department of Radiology [address] [place] [id number] Patient Name: ELIZABETH EUGENE : 1945 Sex: F Age: Race: White Pt. Location: [facility] Patient Status: D Ordered Date: 12/08/2018 [...] early for labs no medicare cpt code 91487 *mla Comments: Post-ASD closure, please assess for [...] enlargement. Electronically signed by:Hannah Fine. Transcribed by: [email or web address], User Resident: Electronically Signed by: HANNAH FINE @ 12/19/2018 09:20 AM Normal [facility] Comment on above: Order Comment: Post- ASD closure, please assess for residual defect, osmium secundum type atrial septal defect Vital Signs Date Time Vital Sign Value Performing Clinician Facility 12-11-2023 11:42-0400 Body height 151.13 cm [facility] 12-11-2023 11:42-0400 Body mass index (BMI) [Ratio] 29 kg/m2 [facility] 12-11-2023 11:42-0400 Body weight 66.22 kg [facility] 12-11-2023 11:42-0400 Diastolic blood pressure 68 mm[Hg] [facility] 12-11-2023 11:42-0400 Heart rate 55 /min [facility] 12-11-2023 11:42-0400 Systolic blood pressure 113 mm[Hg] [facility] 07-10-2023 10:45-0500 Body height 151.13 cm Nay Akers Other [facility] [employer] Other 07-10-2023 10:45-0500 Body mass index (BMI) [Ratio] 28.95 kg/m2 Nay Akers Other [employer] Other 07-10-2023 10:45-0500 Body temperature 98.5 [degF] Nay Akers Other [employer] Other 07-10-2023 10:45-0500 Body weight 66.13 kg Nay Akers Other [employer] Other 07-10-2023 10:45-0500 Diastolic blood pressure 84 mm[Hg] Nay Aekrs Other [employer] Other 07-10-2023 10:45-0500 Respiratory rate 18 /min Nay Akers Other [employer] Other 07-10-2023 10:45-0500 SaO2% (BldA) [Mass fraction] 100 % Nay Akers Other [employer] Other 07-10-2023 10:45-0500 Systolic blood pressure 124 mm[Hg] Nay Akers Other [employer] Other Encounters Encounter Date Encounter Type Care Provider Facility Start: 03-17-2024 End: 03-17-2024 ambulatory [facility] Start: 12-11-2023 End: 12-11-2023 ambulatory [facility] Work Phone: Start: 12-11-2023 End: 12-11-2023 Patient encounter procedure [facility] Work Phone: Start: 10-06-2023 Non-patient / Non-visit [facility] [employer] Work Phone: Start: 09-08-2023 End: 09-08-2023 ambulatory [facility] Start: 07-23-2023 End: 07-23-2023 ambulatory [facility] Start: 07-10-2023 End: 07-10-2023 ambulatory Nay Akers Other [employer] Other Start: 07-10-2023 Office outpatient vi sit 15 minutes Nay Akers [facility] Start: 11-04-2022 [...] 03-06-2022 Adult health examination Nay Akers Other [employer] Other Start: 03-01-2022 Problem, abnormal examination Nay Akers Other [employer] Other Start: 02-04-2022 End: 03-06-2022 ambulatory SHAIKH So PAREDES Facility:[facility] Start: 01-04-2022 End: 02-01-2022 ambulatory KELLER So PAREDES Facility:[facility] Procedures Date Procedure Procedure Detail Performing Clinician Start: 08-14-2016 Screening mammography Nilda [facility] Other Start: 04-26-2014 General examination of patient Nay Akers Other Screening for malign ant neoplasm of breast Nay Akers Other Payers Date Payer Category Payer Medicare [id number] 1945 Unknown [id number] 2.16.84 0.1.853916.3.579.2.59 1945 Unknown [id number] 2.16.84 0.1.938291.3.579.2.593 1945 Unknown [id number] 2.16.84 0.1.844560.3.579.2.59 1945 Unknown [id number] 2.16.84 0.1.729746.3.579.2.593 1945 Unknown [id number] 2.16.84 0.1.121883.3.579.2.593 1945 Unknown [id number] 2.16.84 0.1.502189.3.579.2.593 1945 Unknown [id number] 2.16.84 0.1.662071.3.579.2.593 1945 Unknown [id number] 2.16.84 0.1.994175.3.579.2.593 1945 Unknown [id number] 2.16.84 0.1.852231.3.579.2.593 1945 Unknown [id number] 2.16.84 0.1.353598.3.579.2.593 1945 Unknown [id number] 2.16.84 0.1.441605.3.579.2.593 1945 Unknown [id number] 2.16.84 0.1.400834.3.579.2.593 1945 Unknown [id number] 2.16.84 0.1.682677.3.579.2.593 1945 Unknown [id number] 2.16.84 0.1.492298.3.579.2.593 1945 Unknown [id number] 2.16.84 0.1.792406.3.579.2.593 1945 Unknown [id number] 2.16.84 0.1.518308.3.579.2.593 Social History Date Type Detail Facility Unknown if ever smoked [facility] Other Sex Assigned At Sex Assigned At Bir th [facility] Other Start: 12-11-2023 Tobacco smoking status NHIS Never smoked tobacco (finding) [facility] Start: 1945 Sex Assigned At Female [facility] Clinical Notes 07-10-2023 to 03-17-2024 Note Date & Type Note Facility 03-17-2024 Note Hypertension is elev ated in office- will increase norvasc to 10 mg daily, and continue lisinopril, toprol Renal function stable but elevated for her [facility] 03-17-2024 Note Coronary artery dise ase is stable without any concerning symptoms. Continue GDMT- ASA, toprol, lipitor and zetia continue risk factor modifications- heart healthy diet, regular exercise as tolerated and continue all medications. [facility] 03-17-2024 Note In light of renal fu nction slightly elevated at 1.39 I will not proceed with CT imaging at this time- will repeat Carotid US to re-evaluate for any worsening stenosis Continue ASA and lipitor/zetia for HPL [facility] 03-17-2024 Note [id number]= 5 Age, Female, HTN, CAD Continue warfarin anticoagulation, she had INR drawn today and managed by others. Continue amiodarone and toprol- rate well controlled and in rhythm per assessemnt [facility] 03-17-2024 Note [facility] CARDIOLOGY PROGR ESS [...] is severely enlar (more content not included)... [facility] 03-17-2024 Note Patient here for 6 [...] All other systems reviewed and are negative. [facility] 09-08-2023 Note [facility] Subjective Elizabeth Eugene is a [...] atrial fibrillation, fenestrated ASD and PFO with fxiu-id-eyrme shunting and enlarged right atrium and ventricle. [...] with filling of the distal vessel via ungm-ko-vinyc collaterals and no significant disease in the [...] eGFR - Non- (more content not included)... [facility] 07-23-2023 Note Hypertension is well controlled B/p 110/62 Continue norvasc, lisinopril/ hydrochlorothiazide and toprol Check BMP [facility] 07-23-2023 Note Coronary artery dise ase is stable Continue GDMT- ASA, lipitor, toprol, and lisinopril continue risk factor modifications- heart healthy diet, regular exercise as tolerated and continue all medications. [facility] 07-23-2023 Note Continue ASA and lip itor Carotid US to evaluate degree of stenosis. Script for BMP and Lipid profile [facility] 07-23-2023 Note No concerning sympto ms today, reviewed previous echocardiogram with noted small leak and pt voiced she already knew from D/W Dr Marin last year. [facility] 07-23-2023 Note [id number]= 5 Age, Female, HTN, CAD Remains on amiodarone, and toprol for rate and rhythm control. Warfarin for anticoagulation- denied bleeding tendencies. Recent LFT, Thyroid function, CXR and PFT reviewed with pt- no acute concerns. D/W pt she will need to have annual LFT, Thyroid function, CXR, PFT and eye exam and she voiced understanding. [facility] 07-23-2023 Note [facility] CARDIOLOGY PROGR ESS NOTE HPI: Elizabeth Eugene is a 78 y.o. female here for routine 6 month F/U HPI Pleasant 78 yo female presents today for known h/o hypertension, atrial fibrillation, fenestrated ASD and PFO with tupi-ve-rlygi shunting and enlarged right atrium and ventricle. [...] with filling of the distal vessel via jtft-tn-rrmxk collaterals and no significant disease in the [...] atrial fibrillation, fenestrated ASD and PFO with xwze-ub-qlaok shunting and enlarged right atrium and ventricle. [...] with filling of the distal vessel via eylb-wh-bfrax collaterals and no significant disease in the [...] lipids stable Last (more content not included)... [facility] 07-10-2023 Evaluation note Encounter Date Diagnosis [...] understanding and is agreeable to treatment plan. [facility] Other Evaluation noteNo assessment information available [facility] Work Phone: History general Narrative - [...] biopsy 12/10 Repair of ASD 06/2018 - [facility], Problem Status : Active, [facility] Other Summary Purpose Family History No Family [...] and content) DATE CREATED AUTHOR 07/29/2019 [facility] DATE CREATED AUTHOR AUTHOR'S ORGANIZ ATION 12/13/2022 [facility] DATE CREATED AUTHOR AUTHOR'S ORGANIZ ATION 03/19/2024 [facility] REASON FOR VISIT (unrecogniz ed section [...] BE BASED ON THE PRIMARY CLINICAL RECORDS. [facility]. provides no warranty or guarantee of the accuracy or completeness of information in this document.
== END 2024-05-21 08:01 | disposition home or self-care (01) ==
LOC: LAB 05-24 11:07
PROVIDERS: PCP Family Medicine; Visit Provider Family Medicine
DX: E78.5 Hyperlipidemia, unspecified (principal)
CPT/HCPCS: 36415; 80061

== ENCOUNTER 2024-05-21 08:12 | Outpatient (OUT) | payer MEDICARE, SELFPAY ==
--- OUTSIDE RECORDS SUMMARY | 2024-05-21 08:16 | XMS_ITS | CCD ---
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 Name Role Phone DR SHYLA AUSTIN Primary [...] Hawley Attending Unavailable AUSTIN, DR SHYLA Hawley Primary [...] or physicia Propensity to adverse reactions Comment:Done Pulsity Other (1 source) Allergies Reconciled Propensity to adverse reactions Unknown Pulsity Other Medications Current Medications Medication Drug Class(es) [...] Oral weekly for 90 *Pick strength-form from [employer] for eRX* Feb, Active amiodarone hydrochloride 100 mg oral tablet (2 sources) Antiarrhythmic Start: 12-10-2023 take 1 mg by mouth once daily Amiodarone Active MG PO December 10, 2023 12:00am FreeTextSig: Amiodarone HCl( 100MG Oral daily ) Active -Hx Entry Oral daily; Note: Source Status: Taking*Pick strength-form from [employer] for eRX*; Provider: Oswald Tee ( ) Start: 03-01-2022 take 100 mg by mouth once daily Amiodarone HCl 100MG Amiodarone HCl( 100MG Oral daily ) Active -Hx Entry Oral daily for 0 *Pick strength-form from [employer] for eRX* Feb, Active aspirin 81 mg [...] Oral daily for 0 *Pick strength-form from [employer] for eRX* Aug, Active simvastatin 40 mg oral tablet (2 sources) HMG-CoA Reductase Inhibitor Start: 12-10-2023 take 40 mg by mouth once daily Simvastatin Active 40 MG PO Daily December 10, 2023 12:00am Start: 03-01-2022 Simvastatin 40 MG Simvastatin( 40MG Oral ) Active -Hx Entry Oral for 0 *Pick strength-form from [employer] for eRX* Feb, Active warfarin sodium 5 mg oral tablet (2 sources) Vitamin K Antagonist Start: 12-10-2023 Warfarin Active MG PO December 10, 2023 12:00am FreeTextSig: Warfarin Sodium( 5MG Oral ) Active -Hx Entry Oral; Note: Source Status: Taking*Pick strength-form from [employer] for eRX*; Provider: Oswald Tee ( ) Start: 03-01-2022 Warfarin Sodiu m 5MG Warfarin Sodium( 5MG Oral ) Active -Hx Entry Oral for 0 *Pick strength-form from [employer] for eRX* Feb, Active Problems Active Problems [...] disease (2 sources) Atherosclerotic heart disease of [place] coronary artery without angina pectoris; Translations: [Atherosclerotic heart disease of [place] coronary artery without angina pectoris] Onset: 03-14-2022 [...] Onset: 11-02-2022 Episodic Other aftercare (1 source) intermediate (current) use of anticoagulants; Translations: [TOOL LIAISON CURRNT USE ANTICOAGULANTS] Onset: 12-04-2022 Episodic Other [...] 04-03-2018 Episodic Other aftercare (4 sources) Other longterm (current) drug therapy; Translations: [OTH ASSISTED CURRENT DRUG THERAPY] Onset: 07-29-2022 Episodic Other [...] Range Facility Office Visiton 03-17-2024 Follow-up visit [id number] Elizabeth Eugene 1945 F Date Provider Department Center 03/17/2024 ROSA MARIA [facility] Family History Problem Relation Age of Onset Hypertension Mother Stroke Mother Atrial fibrillation Sister Lung cancer Brother Family Status - Relation Status Age at Mother Sister Brother Level of Service:54099 HI OFFICE/OUTPATIENT ESTABLISHED LOW MDM 20 MIN Normal [facility] Cholesterol in LDL Calc [Mas s/Vol]on 10-06-2023 Cholesterol in LDL [Mass/Vol] 71.0 mg/dL [facility] Comment on above: <100 mg/dl [id number] 0-129 mg/dl NEAR OR ABOVE [id number] mg/dl BORDERLINE [id number] mg/dl HIGH>190 mg/dl VERY HIGH Cholesterol in VLDL Calc [Ma ss/Vol]on 10-06-2023 Cholesterol in VLDL [Mass/Vol] 15.6 mg/dL [facility] Estimated glomerular filtrat ion rate (GFR) non- Americanon 10-06-2023 GFR/1.73 sq M.predicted among non-blacks MDRD (S/P/Bld) [Vol rate/Area] 37 mL/min/{1.73_m2} >=60 [facility] Laboratory - Chemistry and C hemistry - challengeon 10-06-2023 Calcium [Mass/Vol] 9.2 mg/dL 8.5-10.1 [facility] Chloride [Moles/Vol] 105 mmol/L 98-107 [facility] Cholesterol [Mass/Vol] 155 mg/dL <=200 [facility] Cholesterol in HDL [Mass/Vol] 69 mg/dL 40-60 [facility] Comment on above: > or =60 mg/dl - LOW CARDIOVASCULAR RISK<40 mg/dl - HIGH CARDIOVASCULAR RISK CO2 [Moles/Vol] 23.3 mmol/L 21.0-32.0 [facility] Creatinine [Mass/Vol] 1.39 mg/dL 0.55-1.02 [facility] GFR/1.73 sq M.predicted MDRD (S/P/Bld) [Vol rate/Area] 45 mL/min/{1.73_m2} >=60 [facility] Glucose [Mass/Vol] 102 mg/dL 74-106 [facility] Potassium [Moles/Vol] 3.9 mmol/L 3.5-5.1 [facility] Sodium [Moles/Vol] 141 mmol/L 136-145 [facility] Triglyceride [Mass/Vol] 78 mg/dL <=150 [facility] Urea nitrogen [Mass/Vol] 19.0 mg/dL 7.0-18.0 [facility] Urea nitrogen/Creatinine [Mass ratio] 13.7 mg/mg [facility] Serum or plasma anion gap de terminationon 10-06-2023 Anion gap [Moles/Vol] 16.6 mmol/L [facility] Serum or plasma total choles terol/high density lipoprotein (HDL) cholesterol mass starla 10-06-2023 Cholesterol.total/Ch olesterol in HDL [Mass ratio] 2.2 {ratio} [facility] Comment on above: 3.3 - 4.4 LOW RISK4. 4 - 7.1 AVERAGE RISK7.1 - 11.0 MODERATE RISK>11.0 HIGH RISK Office Visiton 09-08-2023 Follow-up visit [id number] Elizabeth Eugene 1945 Date Provider Department Center 09/08/2023 AlexandroNoamLOVERICARDOCLAIRE GAN GOSIA [facility] Family History Problem Relation Age of Onset Hypertension Mother Stroke Mother Atrial fibrillation Sister Lung cancer Brother Family Status - Relation Status Age at Mother Sister Brother Level of Service:77620 HI OFFICE/OUTPATIENT ESTABLISHED MOD MDM 30 MIN [facility] 36on 08-06-2023 36 Patient had carotid duplex recently. Amy wanted your opinion on it. It's scanned into [employer] for your review. Amy increased her atorvastatin to 80mg after recent lipid. Please advise. Thanks. [facility] Office Visiton 07-23-2023 Follow-up visit [id number] Elizabeth Eugene 1945 Date Provider Department Center 07/23/2023 Meredith-ROSA MARIA DAILEY GOSIA [facility] Family History Problem Relation Age of Onset Hypertension Mother Stroke Mother Atrial fibrillation Sister Lung cancer Brother Family Status - Relation Status Age at Mother Sister Brother Level of Service:14311 HI OFFICE/OUTPATIENT ESTABLISHED MOD MDM 30 MIN Reason for Visit and Comments: Follow-up [930074] [facility] ECHOCARDIO M/2D COMPLETEon 0 08-14-2022 ECHOCARDIO M/2D COMPLETE Patient: ELIZABETH EUGENE Exam Date: 08/14/2022 : 1945 Gender:F Ordering : ROSA MARIA DAILEY Admission #: [id number] Family : DR SHYLA UASTIN M.D. Order #: [id number] CLICK HERE TO VIEW EXAM ECHOCARDIOGRAM REPORT [...] across the septum with a small residual [id number] shunt by color Doppler. 6. Mild mitral [...] Marin M.D. on 08/15/2022 at 18:36 Normal [facility] FREE T4on 07-29-2022 Free T4 [Mass/Vol] 1.43 ng/dL Normal 0.76-1.46 [facility] Comment on above: Performed By: #### F T4 #### [facility] [address] [place] [address] Dr. Adrian Becker LIVER PROFILEon 07-29-2022 Albumin [Mass/Vol] 3.8 g/dL Normal 3.4-5.0 [facility] Comment on above: Performed By: #### T SH, LIVER #### [facility] [address] [place] [address] Dr. Adrian Becker Albumin/Globulin [Mass ratio] 1.0 {ratio} Normal [facility] Comment on above: Performed By: #### T SH, LIVER #### [facility] [address] [place] [address] Dr. Adrian Becker ALP [Catalytic activity/Vol] 66 U/L Normal 46-116 [facility] Comment on above: Performed By: #### T SH, LIVER #### [facility] [address] [place] [address] Dr. Adrian Becker ALT [Catalytic activity/Vol] 20 U/L Normal 14-59 [facility] Comment on above: Performed By: #### T SH, LIVER #### [facility] [address] [place] [address] Dr. Adrian Becker AST [Catalytic activity/Vol] 25 U/L Normal 15-37 [facility] Comment on above: Performed By: #### T SH, LIVER #### [facility] [address] [address] [address] Adrian Becker BILI, CONJUGATED 0.1 mg/dL Normal 0.0-0.2 [facility] Comment on above: Performed By: #### T SH, LIVER #### [facility] [address] [address] [address] Adrian Becker Bilirubin [Mass/Vol] 0.3 mg/dL Normal 0.2-1.0 [facility] Comment on above: Performed By: #### T SH, LIVER #### [facility] [address] [place], [place] [address] Dr. Adrian Becker Globulin (S) [Mass/Vol] 3.9 g/dL Normal [facility] Comment on above: Performed By: #### T SH, LIVER #### [facility] [address] [address] [address] Adrian Becker Protein [Mass/Vol] 7.7 g/dL Normal 6.4-8.2 [facility] Comment on above: Performed By: #### T SH, LIVER #### [facility] [address] [address] [address] Adrian Becker TSHon 07-29-2022 TSH 2.876 uIU/mL Normal 0.358-3.740 [facility] Comment on above: Performed By: #### T , LIVER #### [facility] [address] [place] [address] [address] [address] Adrian Becker XR CHEST 2 Von [...] by: JEFF CARDOZA Date: 2022-07-29 13:46 Normal [facility] XR DEXA BONE DENSITYon 05-24 XR [...] by: JANET BORDEN Date: 2022-05-24 15:40 Normal [facility] MG MAMM SCREEN 3D ENRRIQUE CADon 05-21-2022 MG MAMM SCREEN 3D ENRRIQUE CAD Patient: ELIZABETH EUGENE Exam Date: 05/21/2022 : 1945 Gender:F Ordering : DR SHYLA AUSTIN M.D. Admission #: [id number] Family : Order #: [id number] CLICK HERE TO VIEW EXAM RADIOLOGY REPORT PROCEDURE: MAMMOGRAM SCREENING 3D BILATERAL CAD COMPARISON: MAMM SCREEN ENRRIQUE W CAD, 05/11/2020. INDICATIONS: Screening mammography Calculator Name NCI Breast Cancer Risk Assessment Tool 5 Year Breast Cancer Risk 1.50% Lifetime Breast Cancer Risk 3.30% Personal Breast Cancer No Personal Ovarian Cancer No Treatments None Family Cancers None LOCATION: [facility] BREAST COMPOSITION: Heterogeneously dense,which may obscure [...] Borden MD on 05/21/2022 at 13:48 Normal [facility] CBC AUTO DIFFon 03-12-2022 BASO # 0.1 103/ul Normal 0.0-0.1 [facility] Comment on above: Performed By: #### C BC #### [facility] [address] [place] [address] Dr. Adrian Becker Basophils/100 WBC (Bld) 1.1 % Normal 0.2-2.0 [facility] Comment on above: Performed By: #### C BC #### [facility] [address] [place] [address] Dr. Adrian Becker EO # 0.1 103/ul Normal 0.0-0.7 [facility] Comment on above: Performed By: #### C BC #### [facility] [address] [place] [address] Dr. Adrian Becker Eosinophils/100 WBC (Bld) 2.1 % Normal 0.9-7.0 [facility] Comment on above: Performed By: #### C BC #### [facility] [address] [place] [address] Dr. Adrian Becker Erythrocyte distribution width (RBC) [Ratio] 14.1 % Normal 11.0-15.0 [facility] Comment on above: Performed By: #### C BC #### [facility] [address] [place] [address] Dr. Adrian Becker Hematocrit (Bld) [Volume fraction] 33.5 % Critically low 36.0-48.0 [facility] Comment on above: Performed By: #### C BC #### [facility] [address] [place] [address] Dr. Adrian Becker Hemoglobin (Bld) [Mass/Vol] 11.1 g/dL Critically low 12.0-16.0 [facility] Comment on above: Performed By: #### C BC #### [facility] [address] [place] [address] Dr. Adrian Becker IG # 0.02 10e3/ul Normal 0.00-0.03 [facility] Comment on above: Performed By: #### C BC #### [facility] [address] [place] [address] Dr. Adrian Becker IG % 0.3 % Normal 0.0-0.5 [facility] Comment on above: Performed By: #### C BC #### [facility] [address] [place] [address] Dr. Adrian Becker LYMPH # 1.8 103/ul Normal 1.2-3.8 [facility] Comment on above: Performed By: #### C BC #### [facility] [address] [place] [address] Dr. Adrian Becker Lymphocytes/100 WBC (Bld) 29.0 % Normal 20.5-60.0 [facility] Comment on above: Performed By: #### C BC #### [facility] [address] [place] [address] Dr. Adrian Becker MANUAL DIFF REQ NO Normal [facility] Comment on above: Performed By: #### C BC #### [facility] [address] [place] [address] Dr. Adrian Becker MCH (RBC) [Entitic mass] 29.8 pg Normal 26.7-34.0 [facility] Comment on above: Performed By: #### C BC #### [facility] [address] [place] [address] Dr. Adrian Becker MCHC (RBC) [Mass/Vol] 33.1 g/dL Normal 29.9-35.2 [facility] Comment on above: Performed By: #### C BC #### [facility] [address] [place] [address] Dr. Adrian Becker MCV (RBC) [Entitic vol] 89.8 fL Normal 81.0-99.0 [facility] Comment on above: Performed By: #### C BC #### [facility] [address] [place] [address] Dr. Adrian Becker MONO # 0.4 103/ul Normal 0.3-0.8 [facility] Comment on above: Performed By: #### C BC #### [facility] [address] [place] [address] Dr. Adrian Becker Monocytes/100 WBC (Bld) 6.1 % Normal 1.7-12.0 [facility] Comment on above: Performed By: #### C BC #### [facility] [address] [address] [address] Adrian Becker NEUT # 3.8 103/ul Normal 1.4-6.5 [facility] Comment on above: Performed By: #### C BC #### [facility] [address] [address] [address] Adrian Becker Neutrophils/100 WBC (Bld) 61.4 % Normal 43.0-75.0 [facility] Comment on above: Performed By: #### C BC #### [facility] [address] [address] [address] Adrian Becker Platelet mean volume (Bld) [Entitic vol] 9.5 fL Normal 9.5-13.5 [facility] Comment on above: Performed By: #### C BC #### [facility] [address] [place] [address] Dr. Adrian Becker PLT 323 103/ul Normal 150-450 [facility] Comment on above: Performed By: #### C BC #### [facility] [address] [place] [address] Dr. Adrian Becker RBC 3.73 106/ul Critically low 4.20-5.40 [facility] Comment on above: Performed By: #### C BC #### [facility] [address] [place] [address] Dr. Adrian Becker WBC 6.2 103/ul Normal 4.0-11.0 [facility] Comment on above: Performed By: #### C BC #### [facility] [address] [place] [address] Dr. Adrian Becker PROF 14(COMP METB)on 022 Albumin [Mass/Vol] 3.6 g/dL Normal 3.4-5.0 [facility] Comment on above: Performed By: #### T SH, CMP #### [facility] [address] [place] [address] Dr. Adrian Becker Albumin/Globulin [Mass ratio] 0.9 {ratio} Normal [facility] Comment on above: Performed By: #### T SH, CMP #### [facility] [address] [address] [address] Adrian Becker ALP [Catalytic activity/Vol] 52 U/L Normal 46-116 [facility] Comment on above: Performed By: #### T SH, CMP #### [facility] [address] [address] [address] Adrian Becker ALT [Catalytic activity/Vol] 20 U/L Normal 14-59 [facility] Comment on above: Performed By: #### T SH, CMP #### [facility] [address] [address] [address] Adrian Becker Anion gap [Moles/Vol] 11.2 mmol/L Normal [facility] Comment on above: Performed By: #### T SH, CMP #### [facility] [address] [place] [address] Dr. Adrian Becker AST [Catalytic activity/Vol] 22 U/L Normal 15-37 [facility] Comment on above: Performed By: #### T SH, CMP #### [facility] [address] [place] [address] Dr. Adrian Becker Bilirubin [Mass/Vol] 0.4 mg/dL Normal 0.2-1.0 [facility] Comment on above: Performed By: #### T SH, CMP #### [facility] [address] [place] [address] Dr. Adrian Becker Calcium [Mass/Vol] 9.1 mg/dL Normal 8.5-10.1 [facility] Comment on above: Performed By: #### T SH, CMP #### [facility] [address] [place] [address] Dr. Adrian Becker Chloride [Moles/Vol] 102 mmol/L Normal 98-107 [facility] Comment on above: Performed By: #### T SH, CMP #### [facility] [address] [address] [address] Adrian Becker CO2 [Moles/Vol] 27.5 mmol/L Normal 21.0-32.0 [facility] Comment on above: Performed By: #### T SH, CMP #### [facility] [address] [address] [address] Adrian Becker Creatinine [Mass/Vol] 1.38 mg/dL Critically high 0.55-1.02 [facility] Comment on above: Performed By: #### T SH, CMP #### [facility] [address] [address] [address] Adrian Becker EGFR-AF POLISH 45 mL/min/1.73m2 Critically low >=60 [facility] Comment on above: Performed By: #### T SH, CMP #### [facility] [address] [address] [address] Adrian Becker EGFR-NON AF POLISH 37 mL/min/1.73m2 Critically low >=60 [facility] Comment on above: Performed By: #### T SH, CMP #### [facility] [address] [address] [address] Adrian Becker Globulin (S) [Mass/Vol] 3.8 g/dL Normal [facility] Comment on above: Performed By: #### T SH, CMP #### [facility] [address] [address] [address] Adrian Becker Glucose [Mass/Vol] 112 mg/dL Critically high 74-106 [facility] Comment on above: Performed By: #### T SH, CMP #### [facility] [address] [address] [address] Adrian Becker Potassium [Moles/Vol] 3.7 mmol/L Normal 3.5-5.1 [facility] Comment on above: Performed By: #### T SH, CMP #### [facility] [address] [address] [address] Adrian Becker Protein [Mass/Vol] 7.4 g/dL Normal 6.4-8.2 [facility] Comment on above: Performed By: #### T SH, CMP #### [facility] [address] [address] [address] Adrian Becker Sodium [Moles/Vol] 137 mmol/L Normal 136-145 [facility] Comment on above: Performed By: #### T SH, CMP #### [facility] [address] [address] [address] Adrian Becker Urea nitrogen [Mass/Vol] 20.0 mg/dL Critically high 7.0-18.0 [facility] Comment on above: Performed By: #### T SASHA, CMP #### [facility] [address] [address] [address] Adrian Becker Urea nitrogen/Creatinine [Mass ratio] 14.5 mg/mg Normal [facility] Comment on above: Performed By: #### T SASHA, CMP #### [facility] [address] [address] [address] Adrian Becker TSHon 03-12-2022 TSH 2.459 uIU/mL Normal 0.358-3.740 [facility] Comment on above: Performed By: #### T SASHA, CMP #### [facility] [address] [address] [address] Adrian Becker CREATININE BLOODon Creatinine [Mass/Vol] 1.18 mg/dL Normal 0.60-1.20 [facility] [place] [facility] Comment on above: Performed By: #### 2 5656 #### [facility] [address] [place] [address], [facility] Creatinine [Mass/Vol] 45 ml/min/1.73sq m Abnormal >60 [facility] Comment on above: Result Comment: Calc ulation may not be valid for patients over 70 years Performed By: #### 2 5656 #### [facility] [address] [place] [address], [place] Creatinine [Mass/Vol] 55 ml/min/1.73sq m Abnormal >60 [facility] Comment on above: Result Comment: Calc ulation may not be valid for patients over 70 years Performed By: #### 2 5656 #### [facility] [address] [place] [address], [place] CTA HEART-STRUCTURE/ MORPHOL OGY/CONGENITAL HEART DISEASE WITH 3DPPon 12-18-2018 CTA HEART-STRUCTURE/ MORPHOLOGY/CONGENITA L HEART DISEASE WITH 3DPP [facility] Department of Radiology [address] [place] [id number] Patient Name: ELIZABETH EUGENE : 1945 Sex: F Age: Race: White Pt. Location: [facility] Patient Status: D Ordered Date: 12/08/2018 9:35:00 AM Completed Date: 12/18/2018 10:41 AM Requesting Provider: CLAIRE MARIN V Attending Provider: CLAIRE MARIN V Report Copy To: SHYLA AUSTIN Signs & Symptoms: Post-ASD closure, please assess for residual defect, osmium secundum type atrial septal defect History: Order scanned into [employer] Needs Labs ordered, pt is coming in early for labs no medicare cpt code [id number] *mla Comments: Post-ASD closure, please assess for [...] enlargement. Electronically signed by:Hannah Fine. Transcribed by: [email or web address], User Resident: Electronically Signed by: HANNAH FINE @ 12/19/2018 09:20 AM Normal [facility] Comment on above: Order Comment: Post- ASD closure, please assess for residual defect, osmium secundum type atrial septal defect Vital Signs Date Time Vital Sign Value Performing Clinician Facility 12-11-2023 11:42-0400 Body height 151.13 cm [facility] 12-11-2023 11:42-0400 Body mass index (BMI) [Ratio] 29 kg/m2 [facility] 12-11-2023 11:42-0400 Body weight 66.22 kg [facility] 12-11-2023 11:42-0400 Diastolic blood pressure 68 mm[Hg] [facility] 12-11-2023 11:42-0400 Heart rate 55 /min [facility] 12-11-2023 11:42-0400 Systolic blood pressure 113 mm[Hg] [facility] 07-10-2023 10:45-0500 Body height 151.13 cm Nay Akers Other [facility] Other 07-10-2023 10:45-0500 Body mass index (BMI) [Ratio] 28.95 kg/m2 Nay Akers Other [facility] Other 07-10-2023 10:45-0500 Body temperature 98.5 [degF] Nay Akers Other [facility] Other 07-10-2023 10:45-0500 Body weight 66.13 kg Nay Akers Other [facility] Other 07-10-2023 10:45-0500 Diastolic blood pressure 84 mm[Hg] Nay Akers Other [facility] Other 07-10-2023 10:45-0500 Respiratory rate 18 /min Nay Akers Other [facility] Other 07-10-2023 10:45-0500 SaO2% (BldA) [Mass fraction] 100 % Nay Akers Other [facility] Other 07-10-2023 10:45-0500 Systolic blood pressure 124 mm[Hg] Nay Akers Other [facility] Other Encounters Encounter Date Encounter Type Care Provider Facility Start: 03-17-2024 End: 03-17-[address] [facility] Start: 12-11-2023 End: 12-11-2023 ambulatory [facility] Work Phone: Start: 12-11-2023 End: 12-11-2023 Patient encounter procedure [facility] Physician [facility] Work Phone: Start: 10-06-2023 Non-patient / Non-visit [facility] Physician [facility] Work Phone: Start: 09-08-2023 End: 09-08-2023 ambulatory [facility] Start: 07-23-2023 End: 07-23-[address] [facility] Start: 07-10-2023 End: 07-10-2023 ambulatory Nay Akers Other [facility] Other Start: 07-10-2023 Office outpatient vi sit 15 minutes Nay Akers [facility] Start: 11-04-2022 End: 12-04-2022 [...] 03-06-2022 Adult health examination Nay Akers Other [facility] Other Start: 03-01-2022 Problem, abnormal examination Nay Akers Other [facility] Other Start: 02-04-2022 End: 03-06-2022 ambulatory SHAIKH So PAREDES Facility:[facility] Start: 01-04-2022 End: 02-01-2022 ambulatory KELLER So PAREDES Facility:[facility] Procedures Date Procedure Procedure Detail Performing Clinician Start: 08-14-2016 Screening mammography Nilda Akers Other Start: 04-26-2014 General examination of patient Nay Akers Other Screening for malign ant neoplasm of breast Nay Akers Other Payers Date Payer Category Payer Medicare [id number] 1945 Unknown [id number] 2.16.84 0.1.522869.3.579.2.59 1945 Unknown [id number] 2.16.84 0.1.666200.3.579.2.593 1945 Unknown [id number] 2.16.84 0.1.570690.3.579.2.59 1945 Unknown [id number] 2.16.84 0.1.646530.3.579.2.593 1945 Unknown [id number] 2.16.84 0.1.157285.3.579.2.593 1945 Unknown [id number] 2.16.84 0.1.184161.3.579.2.593 1945 Unknown [id number] 2.16.84 0.1.498452.3.579.2.593 1945 Unknown [id number] 2.16.84 0.1.568820.3.579.2.593 1945 Unknown [id number] 2.16.84 0.1.878605.3.579.2.593 1945 Unknown [id number] 2.16.84 0.1.273474.3.579.2.593 1945 Unknown [id number] 2.16.84 0.1.934609.3.579.2.593 1945 Unknown [id number] 2.16.84 0.1.617747.3.579.2.593 1945 Unknown [id number] 2.16.84 0.1.616136.3.579.2.593 1945 Unknown [id number] 2.16.84 0.1.309605.3.579.2.593 1945 Unknown [id number] 2.16.84 0.1.805313.3.579.2.593 1945 Unknown [id number] 2.16.84 0.1.493610.3.579.2.593 Social History Date Type Detail Facility Unknown if ever smoked [facility] Other Sex Assigned At Sex Assigned At Bir th [facility] Other Start: 12-11-2023 Tobacco smoking status NHIS Never smoked tobacco (finding) [facility] Start: 1945 Sex Assigned At Female [facility] Clinical Notes 07-10-2023 to 03-17-2024 Note Date & Type Note Facility 03-17-2024 Note Hypertension is elev ated in office- will increase norvasc to 10 mg daily, and continue lisinopril, toprol Renal function stable but elevated for her [facility] 03-17-2024 Note Coronary artery dise ase is stable without any concerning symptoms. Continue GDMT- ASA, toprol, lipitor and zetia continue risk factor modifications- heart healthy diet, regular exercise as tolerated and continue all medications. [facility] 03-17-2024 Note In light of renal fu nction slightly elevated at 1.39 I will not proceed with CT imaging at this time- will repeat Carotid US to re-evaluate for any worsening stenosis Continue ASA and lipitor/zetia for HPL [facility] 03-17-2024 Note [id number]= 5 Age, Female, HTN, CAD Continue warfarin anticoagulation, she had INR drawn today and managed by others. Continue amiodarone and toprol- rate well controlled and in rhythm per assessemnt [facility] 03-17-2024 Note [facility] CARDIOLOGY PROGR ESS NOTE [...] is severely enlar (more content not included)... [facility] 03-17-2024 Note Patient here for 6 m [...] All other systems reviewed and are negative. [facility] 09-08-2023 Note [facility] Subjective Elizabeth Eugene is a [...] atrial fibrillation, fenestrated ASD and PFO with dvmu-ll-aexue shunting and enlarged right atrium and ventricle. [...] with filling of the distal vessel via btnw-tt-guhpo collaterals and no significant disease in the [...] eGFR - Non- (more content not included)... [facility] 07-23-2023 Note Hypertension is well controlled B/p 110/62 Continue norvasc, lisinopril/ hydrochlorothiazide and toprol Check BMP [facility] 07-23-2023 Note Coronary artery dise ase is stable Continue GDMT- ASA, lipitor, toprol, and lisinopril continue risk factor modifications- heart healthy diet, regular exercise as tolerated and continue all medications. [facility] 07-23-2023 Note Continue ASA and lip itor Carotid US to evaluate degree of stenosis. Script for BMP and Lipid profile [facility] 07-23-2023 Note No concerning sympto ms today, reviewed previous echocardiogram with noted small leak and pt voiced she already knew from D/W Dr Marin last year. [facility] 07-23-2023 Note [id number]= 5 Age, Female, HTN, CAD Remains on amiodarone, and toprol for rate and rhythm control. Warfarin for anticoagulation- denied bleeding tendencies. Recent LFT, Thyroid function, CXR and PFT reviewed with pt- no acute concerns. D/W pt she will need to have annual LFT, Thyroid function, CXR, PFT and eye exam and she voiced understanding. [facility] 07-23-2023 Note [facility] CARDIOLOGY PROGR ESS NOTE HPI: Elizabeth Eugene is a 78 y.o. female here for routine 6 month F/U HPI Pleasant 78 yo female presents today for known h/o hypertension, atrial fibrillation, fenestrated ASD and PFO with fgrj-yy-lktkp shunting and enlarged right atrium and ventricle. [...] with filling of the distal vessel via pavh-ru-srakq collaterals and no significant disease in the [...] atrial fibrillation, fenestrated ASD and PFO with udey-jw-tasue shunting and enlarged right atrium and ventricle. [...] with filling of the distal vessel via krpv-ny-dbzyx collaterals and no significant disease in the [...] lipids stable Last (more content not included)... [facility] 07-10-2023 Evaluation note Encounter Date Diagnosis Assessment [...] understanding and is agreeable to treatment plan. [facility] Other Evaluation noteNo assessment information available [facility] Work Phone: History general Narrative - [...] biopsy 12/10 Repair of ASD 06/2018 - [facility], Problem Status : Active, [facility] Other Summary Purpose Family History No Family [...] and content) DATE CREATED AUTHOR 07/29/2019 [facility] DATE CREATED AUTHOR AUTHOR'S ORGANIZ ATION 12/13/2022 [facility] DATE CREATED AUTHOR AUTHOR'S ORGANIZ ATION 03/19/2024 [facility] REASON FOR VISIT (unrecogniz ed section [...] BE BASED ON THE PRIMARY CLINICAL RECORDS. [facility]. provides no warranty or guarantee of the accuracy or completeness of information in this document.
--- NOTE | 2024-05-21 08:18 | US_ITS ---
The [address] [address] Patient Name: ELIZABETH ABBASI MRN: [id number] date: 1945 Sex: F Assigned Patient Location: [place] Current Patient Location: [place] Accession/Order Number: [id number] Exam Date: 05/21/2024 08:30 Report Date: 05/21/2024 11:26 At the request of: ROSA MARIA DAILEY Procedure: US carotid duplex BI DUPLEX ULTRASOUND EXAMINATION OF THE CAROTID ARTERIES. COMPARISON: 07/30/2023. HISTORY / INDICATIONS: History of carotid stenosis TECHNIQUE: Bilateral common carotid arteries, extracranial internal and external carotid arteries are evaluated with england-scale imaging, color Doppler, and spectral analysis according to a standard protocol. ICA-CCA ratios are calculated with b2b outside sales representative peak-systolic velocities and recorded. Vertebral arteries are evaluated in one segment to evaluate for patency and character of flow. Comparison with previous evaluation is performed when available. Unless otherwise specified, all velocities are measured in cm/sec. Carotid stenosis is reported according to validated velocity parameters, similar to NASCET criteria. FINDINGS: Right Carotid: Plaque was noted. Velocity measurements as follows: Internal Carotid Artery 232/54 and 262/54. ICA to CCA ratio: 3.5. Left Carotid: Plaque was noted. Velocity measurements as follows: Internal Carotid Artery 97/19 and 78/15. ICA to CCA ratio: 1.0. Antegrade flow was seen in both vertebral arteries. CONCLUSION: 1. 50% to 69% stenosis of the right ICA. 2. Less than 50% stenosis of the left ICA. 3. Vertebral arteries are patent and demonstrate antegrade flow. Electronically authenticated by: Che THOMPSON Date: 05/21/2024 11:26
== END 2024-05-21 08:13 | disposition home or self-care (01) ==
LOC: US 08:12
PROVIDERS: PCP Family Medicine; Visit Provider Nurse Practitioner
DX: I65.23 Occlusion and stenosis of bilateral carotid arteries (principal)
CPT/HCPCS: 93880

== ENCOUNTER 2024-06-07 04:21 | Outpatient (RCR) | payer MEDICARE, SELFPAY | END 2024-07-06 09:29 | disposition home or self-care (01) | LOC: MM 04:21 | PROVIDERS: PCP Family Medicine; Visit Provider Internal Medicine | DX: Z51.81 Encounter for therapeutic drug level monitoring (principal); Z79.01 Long term (current) use of anticoagulants; I48.91 Unspecified atrial fibrillation | CPT/HCPCS: 85610; G0463 ==

== ENCOUNTER 2024-07-08 00:53 | Outpatient (RCR) | payer MEDICARE, SELFPAY | END 2024-08-06 15:17 | disposition home or self-care (01) | LOC: MM 00:53 | PROVIDERS: PCP Family Medicine; Visit Provider Internal Medicine | DX: Z51.81 Encounter for therapeutic drug level monitoring (principal); Z79.01 Long term (current) use of anticoagulants; I48.91 Unspecified atrial fibrillation | CPT/HCPCS: 85610; G0463 ==

== ENCOUNTER 2024-08-09 02:18 | Outpatient (RCR) | payer MEDICARE, SELFPAY | END 2024-09-03 13:14 | disposition home or self-care (01) | LOC: MM 02:18 | PROVIDERS: PCP Family Medicine; Visit Provider Internal Medicine | DX: Z51.81 Encounter for therapeutic drug level monitoring (principal); Z79.01 Long term (current) use of anticoagulants; I48.91 Unspecified atrial fibrillation | CPT/HCPCS: 85610; G0463 ==

== ENCOUNTER 2024-08-24 09:01 | Outpatient (OUT) | payer MEDICARE, SELFPAY ==
--- OUTSIDE RECORDS SUMMARY | 2024-08-24 09:10 | XMS_ITS | CCD ---
Author Organization [facility]ini[facility] Care Team Providers Care Shipping Associate Name Role Phone DR SHYLA AUSTIN Primary [...] KELLER H Admitting Unavailable Nay Akers Unavailable PETEY LALA Attending Unavailable ROSA MARIA DAILEY Attending Unavailable CLAIRE MARIN Attending Unavailable Allergies Allergy Classification Reported Allergen(s) Allergy Type Date of Onset Reaction(s) Facility (1 source) patient allergy list reviewed by nurse or physicia Propensity to adverse reactions Comment:Done [facility] Other (1 source) Allergies Reconciled Propensity to adverse reactions Unknown [facility] Other Medications Current Medications Medication Drug Class(es) [...] Oral weekly for 90 *Pick strength-form from [employer] [facility] [employer]* Feb, Active amiodarone hydrochloride 100 mg oral tablet (2 sources) Antiarrhythmic Start: 12-10-2023 take 1 mg by mouth once daily Amiodarone Active MG PO December 10, 2023 12:00am FreeTextSig: Amiodarone HCl( 100MG Oral daily ) Active -Hx Entry Oral daily; Note: Source Status: Taking*Pick strength-form from [facility] [facility] [employer]*; Provider: Oswald Tee ( ) Start: 03-01-2022 take 100 mg by mouth once daily Amiodarone HCl 100MG Amiodarone HCl( 100MG Oral daily ) Active -Hx Entry Oral daily for 0 *Pick strength-form from [facility] [employer]* Feb, Active aspirin 81 mg [...] Oral daily for 0 *Pick strength-form from [facility]* Aug, Active simvastatin 40 mg oral tablet (2 sources) HMG-CoA Reductase Inhibitor Start: 12-10-2023 take 40 mg by mouth once daily Simvastatin Active 40 MG PO Daily December 10, 2023 12:00am Start: 03-01-2022 Simvastatin 40 MG Simvastatin( 40MG Oral ) Active -Hx Entry Oral for 0 *Pick strength-form from [facility]* Feb, Active warfarin sodium 5 mg oral tablet (2 sources) Vitamin K Antagonist Start: 12-10-2023 Warfarin Active MG PO December 10, 2023 12:00am FreeTextSig: Warfarin Sodium( 5MG Oral ) Active -Hx Entry Oral; Note: Source Status: Taking*Pick strength-form from [facility]*; Provider: Oswald Tee ( ) Start: 03-01-2022 Warfarin Sodiu m 5MG Warfarin Sodium( 5MG Oral ) Active -Hx Entry Oral for 0 *Pick strength-form from [facility]* Feb, Active Problems Active Problems Problem Classification Problem Date Documented Date Episodic/Chronic Cardiac and circulatory congenital anomalies (1 source) Atrial septal defect; Translations: [Atrial septal defect] Onset: 04-17-2018 Chronic Cardiac and circulatory congenital anomalies (2 sources) Personal history of (corrected) congenital malformations of heart and circulatory system; Translations: [Personal history of (corrected) congenital malformations of heart and circulatory system] Onset: 08-04-2024 Episodic Cardiac dysrhythmias (8 sources) Paroxysmal atrial fibrillation; Translations: [Paroxysmal atrial fibrillation] Onset: 04-17-2018 Chronic Cardiac dysrhythmias (3 sources) Bradycardia, unspecified; Translations: [Bradycardia] Onset: 04-26-2014 Episodic Coronary atherosclerosis and other heart disease (2 sources) Atherosclerotic heart disease of [place] coronary artery without angina pectoris; Translations: [Atherosclerotic heart disease of [place] coronary artery without angina pectoris] Onset: 03-14-2022 Chronic Disorders of lipid metabolism (2 sources) Mixed hyperlipidemia; Translations: [Mixed hyperlipidemia] Onset: 08-04-2024 Chronic Essential hypertension (4 sources) Essential (primary) [...] Onset: 11-02-2022 Episodic Other aftercare (1 source) correction (current) use of anticoagulants; Translations: [PENITENTIARY CURRNT USE ANTICOAGULANTS] Onset: 12-04-2022 Episodic Other [...] unspecified; Translations: [Atrial septal defect, unspecified] Onset: 09-08-2023 Viral infection (1 source) Disease caused by [...] 04-03-2018 Episodic Other aftercare (4 sources) Other audio/visual manager (current) drug therapy; Translations: [OTH EDUCATION ADVISER CURRENT DRUG THERAPY] Onset: 07-29-2022 Episodic Other [...] unspecified; Translations: [Atrial septal defect, unspecified] Onset: 09-08-2023 Results Test Name Value Interpretation Reference Range Facility Office Visiton 08-04-2024 Follow-up visit [id number] Elizabeth Eugene 1945 Provider Department Center 08/04/2024 [id number], ADAM GOS[facility] Family History Problem Relation Age of Onset Hypertension Mother Stroke Mother Atrial fibrillation Sister Lung cancer Brother Family Status - Relation Status Age at Mother Sister Brother Level of Service:77158 DC OFFICE/OUTPATIENT ESTABLISHED LOW MDM 20 MIN [facility] 36on 05-25-2024 36 Pt informed Normal [facility] 36 Regarding carotid duplex result from 05/24/2024: Rosa Maria Dailey, MYRON Le MA Let her know carotid artery US remains fairly the same as previous Rt carotid > lt in stenosis- still not where anything but monitoring needs to be done- need repeat Carotid US in 6 months to 1 year Thanks for patient to return my call. Normal [facility] Office Visiton 03-17-2024 Follow-up visit [id number] Elizabeth Eugene 1945 F Date Provider Department Center 03/17/2024 ROSA MARIA DIOP CARD [facility] Family History Problem Relation Age of Onset Hypertension Mother Stroke Mother Atrial fibrillation Sister Lung cancer Brother Family Status - Relation Status Age at Mother Sister Brother Level of Service:57647 DC OFFICE/OUTPATIENT ESTABLISHED LOW MDM 20 MIN Normal [facility] Cholesterol in LDL Calc [Mas s/Vol]on 10-06-2023 Cholesterol in LDL [Mass/Vol] 71.0 mg/dL [facility] Comment on above: <100 mg/dl [id number] 0-129 mg/dl NEAR OR ABOVE [id number] mg/dl BORDERLINE [id number] mg/dl HIGH>190 mg/dl VERY HIGH Cholesterol in VLDL Calc [Ma ss/Vol]on 10-06-2023 Cholesterol in VLDL [Mass/Vol] 15.6 mg/dL [facility] Estimated glomerular filtrat ion rate (GFR) non- Americanon 10-06-2023 GFR/1.73 sq M.predicted among non-blacks MDRD (S/P/Bld) [Vol rate/Area] 37 mL/min/{1.73_m2} >=60 [facility] Laboratory - Chemistry and C hemistry - challengeon 10-06-2023 Calcium [Mass/Vol] 9.2 mg/dL 8.5-10.1 [facility] Chloride [Moles/Vol] 105 mmol/L 98-107 [facility] Cholesterol [Mass/Vol] 155 mg/dL <=200 [facility] Cholesterol in HDL [Mass/Vol] 69 mg/dL 40-60 [facility] Comment on above: > or =60 mg/dl - LOW CARDIOVASCULAR RISK<40 mg/dl - HIGH CARDIOVASCULAR RISK CO2 [Moles/Vol] 23.3 mmol/L 21.0-32.0 [facility] Creatinine [Mass/Vol] 1.39 mg/dL 0.55-1.02 [facility] GFR/1.73 sq M.predicted MDRD (S/P/Bld) [Vol rate/Area] 45 mL/min/{1.73_m2} >=60 [facility] Glucose [Mass/Vol] 102 mg/dL 74-106 [facility] Potassium [Moles/Vol] 3.9 mmol/L 3.5-5.1 [facility] Sodium [Moles/Vol] 141 mmol/L 136-145 [facility] Triglyceride [Mass/Vol] 78 mg/dL <=150 [facility] Urea nitrogen [Mass/Vol] 19.0 mg/dL 7.0-18.0 [facility] Urea nitrogen/Creatinine [Mass ratio] 13.7 mg/mg [facility] Serum or plasma anion gap de terminationon 10-06-2023 Anion gap [Moles/Vol] 16.6 mmol/L [facility] Serum or plasma total choles terol/high density lipoprotein (HDL) cholesterol mass starla 10-06-2023 Cholesterol.total/Ch olesterol in HDL [Mass ratio] 2.2 {ratio} [facility] Comment on above: 3.3 - 4.4 LOW RISK4. 4 - 7.1 AVERAGE RISK7.1 - 11.0 MODERATE RISK>11.0 HIGH RISK Office Visiton 09-08-2023 Follow-up visit [id number] Elizabeth Eugene 1945 F Date Provider Department Center 09/08/2023 CLAIRE [facility] Family History Problem Relation Age of Onset Hypertension Mother Stroke Mother Atrial fibrillation Sister Lung cancer Brother Family Status - Relation Status Age at Mother Sister Brother Level of Service:14113 DC OFFICE/OUTPATIENT ESTABLISHED MOD MDM 30 MIN Normal [facility] ECHOCARDIO M/2D COMPLETEon 0 08-14-2022 ECHOCARDIO M/2D COMPLETE Patient: ELIZABETH EUGENE Johnathan Exam Date: 08/14/2022 : 1945 Gender:F Ordering : ROSA MARIA DAILEY Admission #: [id number] Family : DR SHYLA AUSTIN M.D. Order #: [id number] CLICK HERE TO VIEW EXAM ECHOCARDIOGRAM REPORT [...] across the septum with a small residual [id number] shunt by color Doppler. 6. Mild mitral [...] Marin M.D. on 08/15/2022 at 18:[address] [facility] FREE T4on 07-29-2022 Free T4 [Mass/Vol] 1.43 ng/dL Normal 0.76-1.46 [facility] Comment on above: Performed By: #### F T4 #### [facility] [address] [place] [address] Dr. Adrian Becker LIVER PROFILEon 07-29-2022 Albumin [Mass/Vol] 3.8 g/dL Normal 3.4-5.0 [facility] Comment on above: Performed By: #### T SH, LIVER #### [facility] [address] [place] [address] Dr. Adrian Becker Albumin/Globulin [Mass ratio] 1.0 {ratio} Normal [facility] Comment on above: Performed By: #### T SH, LIVER #### [facility] [address] [place] [address] Dr. Adrian Becker ALP [Catalytic activity/Vol] 66 U/L Normal 46-[address] [facility] Comment on above: Performed By: #### T SH, LIVER #### [facility] [address] [place] [address] Dr. Adrian Becker ALT [Catalytic activity/Vol] 20 U/L Normal 14-[address] [facility] Comment on above: Performed By: #### T SH, LIVER #### [facility] [address] [place] [address] Dr. Adrian Becker AST [Catalytic activity/Vol] 25 U/L Normal 15-37 [facility] Comment on above: Performed By: #### T SH, LIVER #### [facility] [address] [address] [address] Adrian Becker BILI, CONJUGATED 0.1 mg/dL Normal 0.0-0.2 [facility] Comment on above: Performed By: #### T SH, LIVER #### [facility] [address] [address] [address] Adrian Becker Bilirubin [Mass/Vol] 0.3 mg/dL Normal 0.2-1.[address] [facility] Comment on above: Performed By: #### T SH, LIVER #### [facility] [address] [place] [address] Dr. Adrian Becker Globulin (S) [Mass/Vol] 3.9 g/dL Normal [facility] Comment on above: Performed By: #### T SH, LIVER #### [facility] [address] [place] [address] Dr. Adrian Becker Protein [Mass/Vol] 7.7 g/dL Normal 6.4-8.2 [facility] Comment on above: Performed By: #### T SH, LIVER #### [facility] [address] [place] [address] Dr. Adrian Becker TSHon 07-29-2022 TSH 2.876 uIU/mL Normal 0.358-3.740 [facility] Comment on above: Performed By: #### T SH, LIVER #### [facility] [address] [place] [address] Dr. Adrian Becker XR CHEST 2 Von [...] by: JEFF CARDOZA Date: 2022-07-29 13:46 Normal [facility] XR DEXA BONE DENSITYon 05-24 XR [...] by: JANET BORDEN Date: 2022-05-24 15:[address] [facility] MG MAMM SCREEN 3D ENRRIQUE CADon 05-21-2022 MG MAMM SCREEN 3D ENRRIQUE CAD Patient: ELIZABETH EUGENE Exam Date: 05/21/2022 : 1945 Gender:F Ordering : DR SHYLA AUSTIN M.D. Admission #: [id number] Family : Order #: [id number] CLICK HERE TO VIEW EXAM RADIOLOGY REPORT PROCEDURE: MAMMOGRAM SCREENING 3D BILATERAL CAD COMPARISON: MG MAMM SCREEN ENRRIQUE W CAD, 05/11/2020. INDICATIONS: Screening mammography Calculator Name NCI Breast Cancer Risk Assessment Tool 5 Year Breast Cancer Risk 1.50% Lifetime Breast Cancer Risk 3.30% Personal Breast Cancer No Personal Ovarian Cancer No Treatments None Family Cancers None LOCATION: [facility] BREAST COMPOSITION: Heterogeneously dense,which may [...] MD on 05/21/2022 at 13:48 Normal [facility] CBC AUTO DIFFon 03-12-2022 BASO # 0.1 103/ul Normal 0.0-0.1 [facility] Comment on above: Performed By: #### C BC #### [facility] [address] [address] [address] Adrian Becker Basophils/100 WBC (Bld) 1.1 % Normal 0.2-2.0 [facility] Comment on above: Performed By: #### C BC #### [facility] [address] [address] [address] Adrian Becker EO # 0.1 103/ul Normal 0.0-0.7 [facility] Comment on above: Performed By: #### C BC #### [facility] [address] [address] [address] Adrian Becker Eosinophils/100 WBC (Bld) 2.1 % Normal 0.9-7.[address] [facility] Comment on above: Performed By: #### C BC #### [facility] [address] [address] [address] Adrian Becker Erythrocyte distribution width (RBC) [Ratio] 14.1 % Normal 11.0-15.[address] [facility] Comment on above: Performed By: #### C BC #### [facility] [address] [address] [address] Adrian Becker Hematocrit (Bld) [Volume fraction] 33.5 % Critically low 36.0-48.0 [facility] Comment on above: Performed By: #### C BC #### [facility] [address] [address] [address] Adrian Becker Hemoglobin (Bld) [Mass/Vol] 11.1 g/dL Critically low 12.0-16.0 [facility] Comment on above: Performed By: #### C BC #### [facility] [address] [place] [address] Dr. Adrian Becker IG # 0.02 10e3/ul Normal 0.00-0.03 [facility] Comment on above: Performed By: #### C BC #### [facility] [address] [place] [address] Dr. Adrian Becker IG % 0.3 % Normal 0.0-0.5 [facility] Comment on above: Performed By: #### C BC #### [facility] [address] [place] [address] Dr. Adrian Becker LYMPH # 1.8 103/ul Normal 1.2-3.8 [facility] Comment on above: Performed By: #### C BC #### [facility] [address] [place] [address] Dr. Adrian Becker Lymphocytes/100 WBC (Bld) 29.0 % Normal 20.5-60.0 [facility] Comment on above: Performed By: #### C BC #### [facility] [address] [place] [address] Dr. Adrian Becker MANUAL DIFF REQ NO Normal [facility] Comment on above: Performed By: #### C BC #### [facility] [address] [place] [address] Dr. Adrian Becker MCH (RBC) [Entitic mass] 29.8 pg Normal 26.7-34.0 [facility] Comment on above: Performed By: #### C BC #### [facility] [address] [place] [address] Dr. Adrian Becker MCHC (RBC) [Mass/Vol] 33.1 g/dL Normal 29.9-35.2 [facility] Comment on above: Performed By: #### C BC #### [facility] [address] [place] [address] Dr. Adrian Becker MCV (RBC) [Entitic vol] 89.8 fL Normal 81.0-99.0 [facility] Comment on above: Performed By: #### C BC #### [facility] [address] [place] [address] Dr. Adrian Becker MONO # 0.4 103/ul Normal 0.3-0.8 [facility] Comment on above: Performed By: #### C BC #### [facility] [address] [place] [address] Dr. Adrian Becker Monocytes/100 WBC (Bld) 6.1 % Normal 1.7-12.[address] [facility] Comment on above: Performed By: #### C BC #### [facility] [address] [place] [address] Dr. Adrian Becker NEUT # 3.8 103/ul Normal 1.4-6.[address] [facility] Comment on above: Performed By: #### C BC #### [facility] [address] [place] [address] Dr. Adrian Becker Neutrophils/100 WBC (Bld) 61.4 % Normal 43.0-75.[address] [facility] Comment on above: Performed By: #### C BC #### [facility] [address] [place] [address] Dr. Adrian Becker Platelet mean volume (Bld) [Entitic vol] 9.5 fL Normal 9.5-13.[address] [facility] Comment on above: Performed By: #### C BC #### [facility] [address] [place] [address] Dr. Adrian Becker PLT 323 103/ul Normal 150-450 [facility] Comment on above: Performed By: #### C BC #### [facility] [address] [place] [address] Dr. Adrian Becker RBC 3.73 106/ul Critically low 4.20-5.40 [facility] Comment on above: Performed By: #### C BC #### [facility] [address] [place] [address] Dr. Adrian Becker WBC 6.2 103/ul Normal 4.0-11.0 [facility] Comment on above: Performed By: #### C BC #### [facility] [address] [place] [address] Dr. Adrian Becker PROF 14(COMP METB)on 022 Albumin [Mass/Vol] 3.6 g/dL Normal 3.4-5.0 [facility] Comment on above: Performed By: #### T SH, CMP #### [facility] [address] [place] [address] Dr. Adrian Becker Albumin/Globulin [Mass ratio] 0.9 {ratio} Normal [facility] Comment on above: Performed By: #### T SASHA, CMP #### [facility] [address] [place] [address] Dr. Adrian Becker ALP [Catalytic activity/Vol] 52 U/L Normal 46-[address] [facility] Comment on above: Performed By: #### T SASHA, CMP #### [facility] [address] [place] [address] Dr. Adrian Becker ALT [Catalytic activity/Vol] 20 U/L Normal 14-[address] [facility] Comment on above: Performed By: #### T SASHA, CMP #### [facility] [address] [place] [address] Dr. Adrian Becker Anion gap [Moles/Vol] 11.2 mmol/L Normal [facility] Comment on above: Performed By: #### T SASHA, CMP #### [facility] [address] [place] [address] Dr. Adrian Becker AST [Catalytic activity/Vol] 22 U/L Normal 15-[address] [facility] Comment on above: Performed By: #### T SASHA, CMP #### [facility] [address] [place] [address] Dr. Adrian Becker Bilirubin [Mass/Vol] 0.4 mg/dL Normal 0.2-1.[address] [facility] Comment on above: Performed By: #### T SASHA, CMP #### [facility] [address] [place] [address] Dr. Adrian Becker Calcium [Mass/Vol] 9.1 mg/dL Normal 8.5-10.1 [facility] Comment on above: Performed By: #### T SASHA, CMP #### [facility] [address] [place] [address] Dr. Adrian Becker Chloride [Moles/Vol] 102 mmol/L Normal 98-[address] [facility] Comment on above: Performed By: #### T SASHA, CMP #### [facility] [address] [place] [address] Dr. Adrian Becker CO2 [Moles/Vol] 27.5 mmol/L Normal 21.0-32.0 [facility] Comment on above: Performed By: #### T SH, CMP #### [facility] [address] [place] [address] Dr. Adrian Becker Creatinine [Mass/Vol] 1.38 mg/dL Critically high 0.55-1.[address] [facility] Comment on above: Performed By: #### T SH, CMP #### [facility] [address] [address] [address] Adrian Becker EGFR-AF GREEK 45 mL/min/1.73m2 Critically low >=[address] [facility] Comment on above: Performed By: #### T SASHA, CMP #### [facility] [address] [place] [address] Dr. Adrian Becker EGFR-NON AF GREEK 37 mL/min/1.73m2 Critically low >=[address] [facility] Comment on above: Performed By: #### T SASHA, CMP #### [facility] [address] [place] [address] Dr. Adrian Becker Globulin (S) [Mass/Vol] 3.8 g/dL Normal [facility] Comment on above: Performed By: #### T SASHA, CMP #### [facility] [address] [place] [address] Dr. Adrian Becker Glucose [Mass/Vol] 112 mg/dL Critically high 74-106 [facility] Comment on above: Performed By: #### T SASHA, CMP #### [facility] [address] [place] [address] Dr. Adrian Becker Potassium [Moles/Vol] 3.7 mmol/L Normal 3.5-5.[address] [facility] Comment on above: Performed By: #### T SH, CMP #### [facility] [address] [place] [address] Dr. Adrian Becker Protein [Mass/Vol] 7.4 g/dL Normal 6.4-8.2 [facility] Comment on above: Performed By: #### T SASHA, CMP #### [facility] [address] [place] [address] Dr. Adrian Becker Sodium [Moles/Vol] 137 mmol/L Normal 136-145 [facility] Comment on above: Performed By: #### T SASHA, CMP #### [facility] [address] [address] [address] Adrian Becker Urea nitrogen [Mass/Vol] 20.0 mg/dL Critically high 7.0-18.[address] [facility] Comment on above: Performed By: #### T SASHA, CMP #### [facility] [address] [address] [address] Adrian Becker Urea nitrogen/Creatinine [Mass ratio] 14.5 mg/mg Normal [facility] Comment on above: Performed By: #### T SASHA, CMP #### [facility] [address] [place] [address] Dr. Adrian Becker TSHon 03-12-2022 TSH 2.459 uIU/mL Normal 0.358-3.740 [facility] Comment on above: Performed By: #### T SASHA, CMP #### [facility] [address] [address] [address] Adrian Becker CREATININE BLOODon Creatinine [Mass/Vol] 1.18 mg/dL Normal 0.60-1.20 [facility] Comment on above: Performed By: #### 2 [id number] #### [facility] [address] [place] [address], [place] Creatinine [Mass/Vol] 45 ml/min/1.73sq m Abnormal >60 [facility] Comment on above: Result Comment: Calc ulation may not be valid for patients over 70 years Performed By: #### 2 5656 #### [facility] [address] [place] [address], [place] Creatinine [Mass/Vol] 55 ml/min/1.73sq m Abnormal >60 [facility] Comment on above: Result Comment: Calc ulation may not be valid for patients over 70 years Performed By: #### 2 [id number] #### [address] [place] [address], [facility] CTA HEART-STRUCTURE/ MORPHOL OGY/CONGENITAL HEART DISEASE WITH 3DPPon 12-18-2018 CTA HEART-STRUCTURE/ MORPHOLOGY/CONGENITA L HEART DISEASE WITH 3DPP [facility] Department of Radiology [address] [place] [address] Patient Name: ELIZABETH EUGENE : 1945 Sex: F Age: Race: White Pt. Location: [facility] Patient Status: D Ordered Date: 12/08/2018 9:35:00 AM Completed Date: 12/18/2018 10:41 AM Requesting Provider: CLAIRE MARIN V Attending Provider: CLAIRE AMRIN V Report Copy To: SHYLA AUSTIN Signs & Symptoms: Post-ASD closure, please assess for residual defect, osmium secundum type atrial septal defect History: Order scanned into RIS Needs Labs ordered, pt is coming in early for labs no medicare cpt code [id number] *mla Comments: Post-ASD closure, please assess for [...] enlargement. Electronically signed by:Hannah Fine. Transcribed by: [email or web address], User Resident: Electronically Signed by: HANNAH FINE @ 12/19/2018 09:20 AM Normal [facility] Comment on above: Order Comment: Post- ASD closure, please assess for residual defect, osmium secundum type atrial septal defect Vital Signs Date Time Vital Sign Value Performing Clinician Facility 12-11-2023 11:42-0400 Body height 151.13 cm [facility] 12-11-2023 11:42-0400 Body mass index (BMI) [Ratio] 29 kg/m2 [facility] 12-11-2023 11:42-0400 Body weight 66.22 kg [facility] 12-11-2023 11:42-0400 Diastolic blood pressure 68 mm[Hg] [facility] 12-11-2023 11:42-0400 Heart rate 55 /min [facility] 12-11-2023 11:42-0400 Systolic blood pressure 113 mm[Hg] [facility] 07-10-2023 10:45-0500 Body height 151.13 cm Nay Akers Other [facility] Other 07-10-2023 10:45-0500 Body mass index (BMI) [Ratio] 28.95 kg/m2 Nay Akers Other [facility] Other 07-10-2023 10:45-0500 Body temperature 98.5 [degF] Nay Akers Other [facility] Other 07-10-2023 10:45-0500 Body weight 66.13 kg Nay Akers Other [facility] Other 07-10-2023 10:45-0500 Diastolic blood pressure 84 mm[Hg] Nay Akers Other [facility] Other 07-10-2023 10:45-0500 Respiratory rate 18 /min Nay Akers Other [facility] Other 07-10-2023 10:45-0500 SaO2% (BldA) [Mass fraction] 100 % Nay Akers Other [facility] Other 07-10-2023 10:74-4210 Systolic blood pressure 124 mm[Hg] Nay Akers Other [facility] Other Encounters Encounter Date Encounter Type Care Provider Facility Start: 08-04-2024 End: 08-04-2024 ambulatory PETEY DAI [facility] Start: 03-17-2024 End: 03-17-2024 ambulatory ROSA MARIA DAILEY [facility] Start: 12-11-2023 End: 12-11-2023 ambulatory [facility] Work Phone: Start: 12-11-2023 End: 12-11-2023 Patient encounter procedure [facility] Work Phone: Start: 10-06-2023 Non-patient / Non-visit [facility] Work Phone: Start: 09-08-2023 End: 09-08-2023 ambulatory [facility] Start: 07-10-2023 End: 07-10-2023 ambulatory Nay Akers Other [facility] Other Start: 07-10-2023 Office outpatient vi sit 15 minutes Nay Akers [facility] Start: 11-04-2022 End: 12-04-[address] SHYLA AUSTIN Facility:[facility] Start: 10-07-2022 End: 11-01-[address] SHYLA AUSTIN Facility:[facility] Start: 09-04-2022 End: 10-04-[address] SHYLA AUSTIN Facility:[facility] Start: 08-14-2022 End: 08-15-2022 ambulatory ROSA MARIA DAILEY Facility:[facility] Start: 08-07-2022 End: 09-04-[address] SHYLA AUSTIN Facility:[facility] Start: 07-29-2022 End: 07-30-[address] SHYLA AUSTIN Facility:[facility] Start: 07-08-2022 End: 02-01-[address] SHYLA AUSTIN Facility:[facility] Start: 06-06-2022 [...] 03-06-2022 Adult health examination Nay Akers Other [facility] Other Start: 03-01-2022 Problem, abnormal examination Nay Akers Other [facility] Other Start: 02-04-2022 End: 03-06-2022 ambulatory KELLERSo PAREDES Facility:[facility] Start: 01-04-2022 End: 02-01-2022 ambulatory SHAIKH So REGGIE Facility:[facility] Procedures Date Procedure Procedure Detail Performing Clinician Start: 08-14-2016 Screening mammography Nilda Akers Other Start: 04-26-2014 General examination of patient Nay Akers Other Screening for malign ant neoplasm of breast Nay Akers Other Payers Date Payer Category Payer Medicare [id number] 1945 Unknown [id number] 2.16.84 [id number] 1945 Unknown [id number] 2.16.84 0.1.267741.3.579.2.593 1945 Unknown [id number] 2.16.84 0.1.952695.3.579.2.593 1945 Unknown [id number] 2.16.84 0.1.479313.3.579.2.593 1945 Unknown [id number] 2.16.84 0.1.209014.3.579.2.593 1945 Unknown [id number] 2.16.84 0.1.567085.3.579.2.593 1945 Unknown [id number] 2.16.84 0.1.165018.3.579.2.593 1945 Unknown [id number] 2.16.84 0.1.314427.3.579.2.593 1945 Unknown [id number] 2.16.84 0.1.036246.3.579.2.593 1945 Unknown [id number] 2.16.84 0.1.023444.3.579.2.593 1945 Unknown [id number] 2.16.84 0.1.233819.3.579.2.593 1945 Unknown [id number] 2.16.84 0.1.922514.3.579.2.593 1945 Unknown [id number] 2.16.84 0.1.706746.3.579.2.593 1945 Unknown [id number] 2.16.84 0.1.714624.3.579.2.593 1945 Unknown [id number] 2.16.84 0.1.497203.3.579.2.593 1945 Unknown [id number] 2.16.84 0.1.735397.3.579.2.593 Social History Date Type Detail Facility Unknown if ever smoked [facility] Other Sex Assigned At Sex Assigned At Bir th [facility] Other Start: 12-11-2023 Tobacco smoking status NHIS Never smoked tobacco (finding) [facility] Start: 1945 Sex Assigned At Female F [facility] Clinical Notes 07-10-2023 to 08-04-2024 Note Date & Type Note Facility 08-04-2024 Note Patient here for 4 m o follow up afib, CAD, and carotid artery stenosis. Had lipid panel and carotid duplex in May 2024. She was started on Zetia at last apt in Mar 2024, and amlodipine was increased at that time. Denies chest pain, palpitations, lightheadedness/syncope, and bleeding on warfarin. HO remains stable. Review of Systems Constitutional: Positive for malaise/fatigue. Cardiovascular: Positive for dyspnea on exertion. Musculoskeletal: Positive for back pain. All other systems reviewed and are negative. [facility] 08-04-2024 Note SUBJECTIVE Elizabeth Eugene is a 79 y.o. year old female patient being seen for No chief complaint on file. HPI Pt is a 79 yo female with PMH of hypertension, atrial fibrillation, fenestrated ASD and PFO with jfpg-lg-[id number] shunting and enlarged right atrium and ventricle. She is status post cardioversion of atrial fibrillation and is maintained on amio and warfarin therapy. She is status post closure of the ASD's on 06/10/2018 with a single Amplatzer multi fenestrated 35 mm septal occluder device. She has coronary artery disease with chronic total occlusion of the distal right coronary artery with filling of the distal vessel via [id number]-pf-[id number] collaterals and no significant disease in the left coronary system by cardiac catheterization in May 2018. 08/04/2024: FU office visit Pt is doing well today, no complaints. FU on carotid U/S. No chest chain, SOB, dizziness, or lightheadedness. Past Medical History: Diagnosis Date Abnormal ECG Arrhythmia Atrial fibrillation (CMS/HCC) Carotid artery stenosis Coronary artery disease Hyperlipidemia Hypertension Past Surgical History: Procedure Laterality Date CARDIAC CATHETERIZATION CARDIOVERSION CTA HEART CORONARY W IV CONTRAST W OR WO FFRCT 05/15/2018 CT HEART CORONARY ANGIOGRAM M[facility]ORMICK CONVERSION CTA HEART CORONARY W IV CONTRAST W OR WO FFRCT 12/19/2018 CT HEART CORONARY ANGIOGRAM MCCORMICK CONVERSION PATENT FORAMEN OVALE CLOSURE Patient Active Problem List Diagnosis Arthritis Atrial fibrillation (CMS/HCC) Atrial septal defect within oval fossa Carotid artery stenosis Coronary atherosclerosis Depressive disorder Fibrocystic disease of breast Hypertensive disorder Right atrial dilatation Right ventricular dilation family history includes Atrial fibrillation in her sister; Hypertension in her mother; Lung cancer in her brother; Stroke in her mother. Social History Tobacco Use Smoking status: Never Smokeless tobacco: Never Substance Use Topics Alcohol use: Yes Comment: occasional Drug use: Never ROS OBJECTIVE Visit Vitals BP 130/60 (BP Location: Left arm, Patient Position: Sitting) Pulse 56 Ht 1.499 m (4' 11 ) Wt 64.9 kg (143 lb) SpO2 98% BMI 28.88 kg/m??? Smoking Status Never BSA 1.64 m??? Physical Exam Constitutional: No acute distress. Psychiatric: Mental Status: alert and normal affect. Insight: good judgement. Eyes: Lids and Conjunctivae: non-injected and no discharge. Pupils: PERRLA. Neck: Neck: supple and trachea midline. Jugular Veins: normal jugular venous pressure. Lungs: Respiratory Effort: unlabored. Auscultation: no rales or rhonchi and normal breath sounds. Cardiovascular: Rate And Rhythm: regular. Heart Sounds: normal S1 and S2. Systolic Murmur: not heard. Diastolic Murmur: not heard. Extremities: no cyanosis, edema, or peripheral signs of emboli. Peripheral Pulses: Pulses: full and equal in all extremities except if noted. Abdomen: Inspection and Palpation: non distended or tender and soft. Skin: Inspection and Palpation: warm and dry. Allergies No Known Allergies Medications Current Outpatient Medications: amiodarone (Pacerone) 100 mg tablet, Take 1 tablet (100 mg) by mouth once daily as directed., Disp: 90 tablet, Rfl: 3 amLODIPine (Norvasc) 10 mg tablet, Take 1 tablet (10 mg) by mouth in the morning., Disp: 90 tablet, Rfl: 3 aspirin 81 mg EC tablet, Take 1 tablet every day by oral route., Disp: , Rfl: atorvastatin (Lipitor) 80 mg tablet, Take 1 tablet (80 mg) by mouth at bedtime., Disp: 90 tablet, Rfl: 3 ezetimibe (Zetia) 10 mg tablet, Take 1 tablet (10 mg) by mouth in the morning., Disp: 30 tablet, Rfl: 11 lisinopril 10 mg tablet, Take 1 tablet (10 mg) by mouth in the morning., Disp: 90 tablet, Rfl: 3 metoprolol succinate XL (Toprol-XL) 50 mg 24 hr tablet, Take 1 tablet (50 mg) by mouth in the morning and at bedtime., Disp: 180 tablet, Rfl: 3 warfarin (Coumadin) 2 mg tablet, TAKE DIRECTED PER COUMADIN CLINIC, Disp: , Rfl: atorvastatin (Lipitor) 80 mg tablet, Take 1 tablet (80 mg) by mouth at bedtime., Disp: 90 tablet, Rfl: 3 Recent Labs No visits with results within 6 Month(s) from this visit. Latest known visit with results is: [facility] Encounter on 12/18/2018 Component Date Value Creatinine 12/18/2018 1.18 eGFR - Non- Ameri* 12/18/2018 45 (A) eGFR - 12/18/2018 55 (A) Imaging and other tests 05/21/2024: Carotid ultrasound 07/30/2023: More than 70% flow stenosis in the right internal carotid artery by flow velocity [proximal ICA PSV 291 cm/s, EDV 54 cm/s, ratio 3.4], 0 to 49% flow stenosis in the left internal carotid artery by flow velocity. Echocardiogram 08/16/2022: Normal LV systolic function, EF 60%, normal RV size and systolic function. Severe left atrial dilatation. Normal right atrial size. Interatrial septal closure is seen well seated across the septum with a small residual left to rig (more content not included)... [facility] 03-17-2024 Note Hypertension is elev ated in office- will increase norvasc to 10 mg daily, and continue lisinopril, toprol Renal function stable but elevated for her [facility] 03-17-2024 Note Coronary artery dise ase is stable without any concerning symptoms. Continue GDMT- ASA, toprol, lipitor and zetia continue risk factor modifications- heart healthy diet, regular exercise as tolerated and continue all medications. [facility] 03-17-2024 Note In light of renal fu nction slightly elevated at 1.39 I will not proceed with CT imaging at this time- will repeat Carotid US to re-evaluate for any worsening stenosis Continue ASA and lipitor/zetia for HPL [facility] 03-17-2024 Note [id number]= 5 Age, Female, HTN, CAD Continue warfarin anticoagulation, she had INR drawn today and managed by others. Continue amiodarone and toprol- rate well controlled and in rhythm per assessemnt [facility] 03-17-2024 Note Patient here for 6 [...] All other systems reviewed and are negative. [facility] 03-17-2024 Note [facility]TP CARDIOLOGY PROGR ESS [...] is severely enlar (more content not included)... [facility] 09-08-2023 Note [place] [facility] Subjective Elizabeth Eugene is a [...] atrial fibrillation, fenestrated ASD and PFO with xtzl-vq-dsoqm shunting and enlarged right atrium and ventricle. [...] with filling of the distal vessel via arid-zq-xhkca collaterals and no significant disease in the [...] eGFR - Non- (more content not included)... [facility] 07-10-2023 Evaluation note Encounter Date Diagnosis [...] understanding and is agreeable to treatment plan. [facility] Other Evaluation noteNo assessment information available [facility] Work Phone: History general Narrative - Reported* [...] biopsy 12/10 Repair of ASD 06/2018 - [facility], Problem Status : Active, [facility] Other Summary Purpose Family History No Family [...] and content) DATE CREATED AUTHOR 07/29/2019 [facility] DATE CREATED AUTHOR AUTHOR'S ORGANIZ ATION 12/13/2022 [facility] DATE CREATED AUTHOR AUTHOR'S ORGANIZ ATION 08/06/2024 [facility] REASON FOR VISIT (unrecogniz ed [...] BE BASED ON THE PRIMARY CLINICAL RECORDS. [employer] provides no warranty or guarantee of the accuracy or completeness of information in this document.
--- NOTE | 2024-08-24 09:29 | XR_ITS ---
The [address] [address] Patient Name: ELIZABETH ABBASI MRN: [id number] date: 1945 Sex: F Assigned Patient Location: LAB Current Patient Location: LAB Accession/Order Number: [id number] Exam Date: 08/25/2024 22:25 Report Date: 08/25/2024 22:26 At the request of: ROSA MARIA DAILEY Procedure: XR chest 2V XR chest 2V 08/24/2024 9:48 AM SIGNS AND SYMPTOMS: ^residential use of amiodarone PROTOCOL: Frontal radiograph of the chest COMPARISON: 06/27/2023 FINDINGS: The trachea is midline. Atherosclerotic changes are noted in the aortic arch. The heart and mediastinal structures are within normal limits. There is linear scarring or atelectasis in the left lung base which is unchanged. The lung parenchyma is clear otherwise. There is a dextro convex curvature of the thoracic spine. Degenerative changes are noted in the thoracic spine. The bony thorax is intact. XR/XR chest 2V IMPRESSION: There is linear scarring or atelectasis in the left lung base which is unchanged. The lung parenchyma is clear otherwise. Impression dictated by: Art Gant M.D.08/25/2024 10:26 PM Dictation Location: [place] [address] Electronically authenticated by: [id number] Y Date: 08/25/2024 22:26
[2024-08-24 10:22] LABS: Alanine Aminotransferase 15 U/L (14-59); Albumin Level 3.4 g/dL (3.4-5.0); Alkaline Phosphatase 59 U/L (46-116); Aspartate Amino Transferase 21 U/L (15-37); Bilirubin Direct 0.1 mg/dL (0.0-0.2); Bilirubin Total 0.5 mg/dL (0.2-1.0); Globulin 3.4 g/dL; Thyroid Stimulating Hormone 4.241 uIU/mL (0.358-3.740); Total Protein 6.8 g/dL (6.4-8.2)
[2024-08-24 10:32] LABS: Free T4 1.21 ng/dL (0.76-1.46)
== END 2024-08-24 09:02 | disposition home or self-care (01) ==
LOC: LAB 09:03
PROVIDERS: PCP Family Medicine; Visit Provider Nurse Practitioner
DX: Z79.899 Other long term (current) drug therapy (principal); Z51.81 Encounter for therapeutic drug level monitoring; Z79.01 Long term (current) use of anticoagulants; I48.91 Unspecified atrial fibrillation
CPT/HCPCS: 36415; 71046; 80076; 84439; 84443; 85610; G0463

== ENCOUNTER 2024-09-04 12:04 | Outpatient (RCR) | payer MEDICARE, SELFPAY | END 2024-10-01 12:31 | disposition home or self-care (01) | LOC: MM 12:04 | PROVIDERS: PCP Family Medicine; Visit Provider Internal Medicine | DX: Z51.81 Encounter for therapeutic drug level monitoring (principal); Z79.01 Long term (current) use of anticoagulants; I48.20 Chronic atrial fibrillation, unspecified ==

== ENCOUNTER 2024-10-05 02:14 | Outpatient (RCR) | payer MEDICARE, SELFPAY | END 2024-11-03 14:05 | disposition home or self-care (01) | LOC: MM 02:14 | PROVIDERS: PCP Family Medicine; Visit Provider Internal Medicine | DX: Z51.81 Encounter for therapeutic drug level monitoring (principal); Z79.01 Long term (current) use of anticoagulants; I48.91 Unspecified atrial fibrillation | CPT/HCPCS: 85610; G0463 ==

== ENCOUNTER 2024-10-12 12:56 | Outpatient (OUT) | payer MEDICARE, SELFPAY ==
[2024-10-12 13:06] LABS: Hemoglobin 11.8 g/dL (12.0-16.0)
--- NOTE | 2024-10-12 13:44 | RT_ITS ---
[facility] Test Date: 2024-10-12 Pat Name: ELIZABETH ABBASI Department: Room: - Gender: Female Management Services Technician: Mainor Lang RRT : 1945 Requested By: [id number] Order Number: [id number] Reading MD: Chema Pendleton Interpretive Statements Pulmonary function testing was completed according to ATS criteria. Findings were considered accurate and reproducible. No bronchodilator was administered due to normal spirometric values. Spirometry: -FEV1/FVC: Normal @ 87% -FEV1: Normal @ 125% -FVC: Normal @ 106% Lung volumes by plethysmography: -RV: Low normal @ 80% -TLC: Normal @ 93% Diffusion capacity: -DLCO: Mild reduction @ 78% when corrected for Hb 11.8g/dL Comparison from 06/27/2023: -T% -DLCO: 81% Impressions: -Normal spirometry and lung volumes with an isolated mildly decreased DLCO. This pattern can be seen in, but not restricted to, cardiopulmonary vascular disorders, early interstitial lung disease, and early emphysema. Compared to prior resting, there is an improvement in TLC and negligible change in DLCO. Clinical correlation required. Electronically Signed On 10-13-2024 14:00:34 EDT by Chema Pendleton
== END 2024-10-12 12:57 | disposition home or self-care (01) ==
LOC: CARD 12:57
PROVIDERS: PCP Family Medicine; Visit Provider Nurse Practitioner
DX: Z79.899 Other long term (current) drug therapy (principal); I65.23 Occlusion and stenosis of bilateral carotid arteries
CPT/HCPCS: 36415; 85018; 93880; 94010; 94726; 94729

== ENCOUNTER 2024-10-12 13:54 | Outpatient (OUT) | payer MEDICARE, SELFPAY | END 2024-10-12 13:55 | disposition home or self-care (01) | LOC: US 13:54 | PROVIDERS: PCP Family Medicine | DX: I65.23 Occlusion and stenosis of bilateral carotid arteries (principal) | CPT/HCPCS: 93880 ==

== ENCOUNTER 2024-11-04 04:38 | Outpatient (RCR) | payer MEDICARE, SELFPAY | END 2024-12-03 14:59 | disposition home or self-care (01) | LOC: MM 04:38 | PROVIDERS: PCP Family Medicine; Visit Provider Internal Medicine | DX: Z51.81 Encounter for therapeutic drug level monitoring (principal); Z79.01 Long term (current) use of anticoagulants; I48.91 Unspecified atrial fibrillation | CPT/HCPCS: 85610; G0463 ==

== ENCOUNTER 2024-12-05 07:11 | Outpatient (RCR) | payer MEDICARE, SELFPAY | END 2024-12-30 14:17 | disposition home or self-care (01) | LOC: MM 07:11 | PROVIDERS: PCP Family Medicine; Visit Provider Internal Medicine | DX: Z51.81 Encounter for therapeutic drug level monitoring (principal); Z79.01 Long term (current) use of anticoagulants; I48.91 Unspecified atrial fibrillation | CPT/HCPCS: 85610; G0463 ==

== ENCOUNTER 2025-01-04 02:22 | Outpatient (RCR) | payer MEDICARE, SELFPAY | END 2025-02-03 16:30 | disposition home or self-care (01) | LOC: MM 02:22 | PROVIDERS: PCP Family Medicine; Visit Provider Internal Medicine | DX: Z51.81 Encounter for therapeutic drug level monitoring (principal); Z79.01 Long term (current) use of anticoagulants; I48.91 Unspecified atrial fibrillation ==

== ENCOUNTER 2025-02-04 00:30 | Outpatient (RCR) | payer MEDICARE, SELFPAY | END 2025-03-03 12:52 | disposition home or self-care (01) | LOC: MM 00:30 | PROVIDERS: PCP Family Medicine; Visit Provider Internal Medicine | DX: Z51.81 Encounter for therapeutic drug level monitoring (principal); Z79.01 Long term (current) use of anticoagulants; I48.91 Unspecified atrial fibrillation | CPT/HCPCS: 85610; G0463 ==

== ENCOUNTER 2025-03-07 01:46 | Outpatient (RCR) | payer MEDICARE, SELFPAY | END 2025-04-05 15:41 | disposition home or self-care (01) | LOC: MM 01:46 | PROVIDERS: PCP Family Medicine; Visit Provider Internal Medicine | DX: Z79.01 Long term (current) use of anticoagulants (principal); Z51.81 Encounter for therapeutic drug level monitoring; I48.91 Unspecified atrial fibrillation | CPT/HCPCS: 85610; G0463 ==

== ENCOUNTER 2025-04-06 04:29 | Outpatient (RCR) | payer MEDICARE, SELFPAY | END 2025-05-06 23:59 | disposition home or self-care (01) | LOC: MM 04:29 | PROVIDERS: PCP Family Medicine; Visit Provider Internal Medicine | DX: Z51.81 Encounter for therapeutic drug level monitoring (principal); Z79.01 Long term (current) use of anticoagulants; I48.91 Unspecified atrial fibrillation | CPT/HCPCS: 85610; G0463 ==

== ENCOUNTER 2025-05-07 | Outpatient (RCR) | payer MEDICARE, SELFPAY | END 2025-06-05 23:59 | disposition home or self-care (01) | LOC: MM | PROVIDERS: PCP Family Medicine; Visit Provider Family Medicine | DX: Z51.81 Encounter for therapeutic drug level monitoring (principal); Z79.01 Long term (current) use of anticoagulants ==

== ENCOUNTER 2025-06-06 11:05 | Outpatient (RCR) | payer MEDICARE, SELFPAY | END 2025-07-06 12:46 | disposition home or self-care (01) | LOC: MM 11:05 | PROVIDERS: PCP Family Medicine; Visit Provider Internal Medicine | DX: Z51.81 Encounter for therapeutic drug level monitoring (principal); Z79.01 Long term (current) use of anticoagulants; I48.20 Chronic atrial fibrillation, unspecified | CPT/HCPCS: 85610; G0463 ==